=== PATIENT | male | born 1950 | race Caucasian/White ===

== ENCOUNTER 2018-08-15 02:08 | Inpatient (IN) | payer MEDICARE ==
[~2018-08-15] VITALS: Ht 182.9 cm; Wt 44.9 kg
[2018-08-15] VITALS (21 sets, daily range): BP systolic 112–164; BP diastolic 69–99; PULSE 96–116; RESP 17–28
[2018-08-15] MEDS ORDERED: SODIUM CHLORIDE 0.9% 1L BAG IV* STA (02:18)
[2018-08-15] MEDS ORDERED: HYDROmorphONE 0.5 MG/0.5 ML SYG IV STA ×2 (02:42→08:21)
[2018-08-15] MEDS ORDERED: VANCOMYCIN 1 GM (PMX) 250 ML IVPB ONE (03:00)
[2018-08-15] MEDS ORDERED: PIPER-TAZO 3.375 GM IV (PMX) 100 ML IVPB ONE (03:00)
[2018-08-15] MEDS ORDERED: ONDANSETRON 4 MG INJ IV STA ×2 (04:55→08:21)
[2018-08-15] MEDS ORDERED: ONDANSETRON 4 MG INJ ONE (04:56)
[2018-08-15] MEDS ORDERED: CHLO473M4 MM (06:38)
[2018-08-15] MEDS ORDERED: AMIO200T4 GTB (06:38)
[2018-08-15] MEDS ORDERED: LACTINEX GTB (06:39)
[2018-08-15] MEDS ORDERED: ACET325S GTB (06:40)
[2018-08-15] MEDS ORDERED: DOCU50LI23 GTB (06:55)
[2018-08-15] MEDS ORDERED: ESCI10TA GTB (06:55)
[2018-08-15] MEDS ORDERED: HYDR-3670 GTB (06:57)
[2018-08-15] MEDS ORDERED: LACT20SO2 PO (06:58)
[2018-08-15] MEDS ORDERED: IPRA3AMP29 INHALATION (06:58)
[2018-08-15] MEDS ORDERED: ZOLP5TAB7 GTB (06:59)
[2018-08-15] MEDS ORDERED: ONDA4TAB13 PO (06:59)
[2018-08-15] MEDS ORDERED: BALS60OI TOP (07:01)
[2018-08-15] MEDS ORDERED: BUDE1AMP INHALATION (07:02)
[2018-08-15] MEDS ORDERED: PANT40TA3 GTB (07:03)
[2018-08-15] MEDS ORDERED: PROT946L GTB (07:03)
[2018-08-15] MEDS ORDERED: MAG355OR14 GTB (07:04)
[2018-08-15] MEDS ORDERED: LIDO700A29 TP (07:18)
[2018-08-15] MEDS ORDERED: DOCUSATE SODIUM 10 MG/ML (10ML CUP) GTB PRN (08:00)
[2018-08-15] MEDS ORDERED: LACTULOSE 30ML CUP PO SCH (08:00)
[2018-08-15] MEDS ORDERED: ACETAMINOPHEN 650MG/20.3ML CUP GTB PRN (08:00)
[2018-08-15] MEDS ORDERED: AL HYDROX/MG HYDROX/SIMETH 30 ML CUP GTB PRN (08:00)
[2018-08-15] MEDS ORDERED: ONDANSETRON 4 MG TAB PO PRN (08:00)
[2018-08-15] MEDS ORDERED: PANTOPRAZOLE (EC) 40 MG TAB PO SCH (09:00)
--- NOTE | 2018-08-15 09:18 | HP ---
DATE OF ADMISSION: 08/15/2018 CHIEF COMPLAINT: Shortness of breath x1 day and neck and back pain. HISTORY OF PRESENT ILLNESS: This is a 68-year-old male with a past medical history of ventilatory de pendent respiratory failure, history of dysphagia, history of chronic neck pain, back pain, history o f arrhythmia, history of coronary artery disease, history of depression, history of gastroesophageal reflux disease, who presents to [facility] from a snf facility due to s hortness of breath and worsening neck pain. The patient states that he was recently at [facility] and was transferred to a skilled nurse facility, but he developed shortness of breath . The patient also stated that his pain has been getting worse in his neck. As a result, he was bro ught into the emergency room. Upon arrival, the patient had a chest x-ray, which showed findings of infiltrate of right lower lobe. The patient is also started on sepsis protocol, given IV fluids, IV antibiotics. Cultures were drawn. The patient was also given pain medication, IV Dilaudid. Upon my evaluation of the patient at this time, the patient states that he has ongoing neck pain that has been chronic, the patient states that he had recent surgery. The patient states he takes Dilaud id for pain control. He denies any hemoptysis, hematemesis or hematochezia. PAST MEDICAL HISTORY: As stated above, history of ventilatory dependent respiratory failure, history of dysphagia, history of coronary artery disease, history of arrhythmia, history of chronic pain syn drome due to gastroesophageal reflux disease, depression. PAST SURGICAL HISTORY: Status post trach, status post percutaneous endoscopic gastrostomy, status po st back surgery. FAMILY HISTORY: No family history of kidney disease. SOCIAL HISTORY: Lives at snf facility. MEDICATIONS: Medications have been reviewed and reconciled. ALLERGIES: PLEASE SEE LIST. REVIEW OF SYSTEMS: A 14-point review of systems was conducted. Pertinent positives stated in HPI, o therwise negative. PHYSICAL EXAMINATION: VITAL SIGNS: Blood pressure 132/71, respirations 24, pulse 118, temperature 98.4. HEENT: Head is normocephalic. NECK: Supple. Positive trach. HEART: Tachycardic. LUNGS: Show diminished breath sounds at the base. ABDOMEN: Soft, nontender to palpation without rebound or guarding. EXTREMITIES: Negative for clubbing, cyanosis, no edema. DERMATOLOGIC: No rashes. MUSCULOSKELETAL: No joint effusion. Positive decubitus wound noted. The patient has noted tenderne ss to palpation along the thoracic and cervical spine. NEUROLOGIC: No obvious focal deficits. LABORATORY DATA: Reviewed. ASSESSMENT AND PLAN: This is a 68-year-old male who presents with: 1. Sepsis secondary to healthcare-associated pneumonia. The patient's chest x-ray noted a positive infiltrate. The patient has elevated white count. Plan at this point is to check blood cultures, ch emerson lactic acid level and procalcitonin level. Continue the patient on broad spectrum antibiotics. We will place infectious disease consult for evaluation. 2. Neck pain, back pain. Etiology may be secondary to musculoskeletal disease. Plan is to check x- rays of the thoracic, lumbar and cervical spines. We will continue pain control, consider ortho eval uation. 3. Ventilatory dependent respiratory failure. Vent settings have been reviewed. Continue to monito r, place pulmonary consult for evaluation and management. 4. Dysphagia status post percutaneous endoscopic gastrostomy. We will continue tube feeding. 5. Anemia. Continue to monitor hemoglobin and hematocrit levels. 6. Lactic acidosis secondary to sepsis, clinically improving. Continue to monitor. 7. Tachyarrhythmia. We will place a cardiology consult for evaluation. Continue amiodarone. 8. Gastroesophageal reflux disease. Continue proton pump inhibitor. 9. Hypertension. Continue current blood pressure regimen. 10. Depression. Continue Lexapro. 11. Constipation. Continue lactulose. 12. Decubitus wound. Continue wound care. Please note, I spent additional 30 minutes of [id number] time with the patient, discussing advanced directives and codes status. The patient is FULL CODE. Dictated By: ADAN BUSCH DO NR/GUSTAVO Conf#: [id number] DID#: [id number] CC: CHITRA LANDEROS DO;*EndCC*
--- NOTE | 2018-08-15 09:58 | CONS ---
Assessment/Plan Assessment/Plan Hospital Course (Demo Recall) 1. Acute on chronic respiratory failure status post tracheostomy vent dependent 2. Pneumonia 3. Sinus tachycardia history of paroxysmal atrial fibrillation 4. History of gastric outlet obstruction 5. Dysphagia status post tube feeding and placement 6. History of severe COPD 7. Anemia 8. History of duodenal ulcer on esophagitis Recommendations: Continue with amiodarone for now. Patient has remained in sinus rhythm so far Ventilator support will be managed as per pulmonary Antibiotic management as per internal medicine and possible consultants Electrolytes will be checked and adjusted as needed Echocardiogram will be checked to evaluate for LV function Trach care will be continue aggressive suctioning. DVT prophylaxis and GI prophylaxis as per internal medicine Continue with ICU care Thank you for his referral. We will continue to follow along with you STEPHAN GE MD [facility] Consultation Date/Type/Reason Admit Date/Time August 15, 2018 at 03:45 Date of Consultation: August 15, 2018 Type of Consult Cardiology Reason for Consultation Arrhythmia, tachycardia Requesting Provider: ADAN BUSCH DO Date/Time of Note DATE: 08/15/18 TIME: 09:49 Hx of Present Illness Interventional cardiology consultation note Chief complaint: Worsening respiratory failure, neck pain back pain Reason for consult: Arrhythmia, tachycardia History of present illness: Thank you for this referral. History was obtained partially from the patient. Most of this discussion with the physicians and staff extensive review of the old chart. Patient also known to me from previous admission to the [facility] a few months ago This is an unfortunate 68-year-old gentleman who is being admitted for worsening respiratory failure and ammonia. Patient has had a complicated course over the past 6 months. He course has been complicated since February 19 of the last year when he was admitted to outside facility at [place] for inability to eat and nausea vomiting. Patient has had a significant underlying emphysema and has had episode of proximal atrial fibrillation in the past. Patient had previously gone partial gastrectomy and placement of feeding jejunostomy. He has had complicated course including respiratory failure and mucous plugging. Patient has been trached and has been out of hospitals and care home. Over the past few days patient has been getting worsening shortness of breath and pneumonia. He just getting admitted to intensive care unit for his worsening respiratory failure and pneumonia. Patient has a history of atrial fibrillation especially when his respiratory failure gets worse. Currently remains in sinus rhythm sinus tachycardia mostly. Patient denies any chest pain or pressure to me other palpitation to me does complain of nausea vomiting does complain of shortness of breath and cough. Has been noted to have green phlegm. Allergies: NSAIDs Medications were reviewed as per medical reconciliation sheet Family history: No reported history of early coronary artery disease Social history: Patient has been a long-standing smoker. Has not smoked recently though Past medical history: History of gastric ulcer and ulcers obstruction and status post feeding jejunostomy placement as well as risks and Y construction and cholecystectomy. History of respiratory failure status post tracheostomy no history of proximal atrial fibrillation history of severe COPD questionable history of hypertrophic cardiomyopathy three-vessel erosive gastritis history of a hiatal hernia duodenal ulcer duodenal narrowing Review of system: Patient denies all others except for above-mentioned Past Medical History Home Meds Reported Medications Lidocaine (Lidoderm) 1 Each Adh..patch, 1 EACH TP DAILY PUT ON AT 0900 AND TAKE OFF AT 2100 08/15/18 Mag Hydrox/Al Hydrox/Simeth (Maalox Advanced Suspension) 355 Ml Oral.susp, 30 ML GTB Q6 PRN for GASTROINTESTINAL UPSET 08/15/18 Pantoprazole* (Protonix*) 40 Mg Tablet.dr, 40 MG GTB DAILY, TAB 08/15/18 Protein Supplement (Promod) 946 Ml Liquid, 30 ML GTB BID 08/15/18 Budesonide* (Pulmicort*) 1 Mg/2 Ml Ampul.neb, 1 MG INHALATION BID, #60 AMP 08/15/18 Balsam Dora/[place] Oil (Venelex Ointment) 60 Gm Oint..gm., 1 APPLIC TOP NEEDED, #1 TUB APPLY TO SACRUM TOPICALLY DAILY 08/15/18 Ondansetron Hcl* (Zofran*) 4 Mg Tab, 4 MG PO Q6H PRN for NAUSEA AND OR VOMITING, TAB 08/15/18 Zolpidem Tartrate* (Zolpidem Tartrate*) 5 Mg Tablet, 5 MG GTB QHS PRN for INSOMNIA, #30 TAB 08/15/18 Lactulose* (Lactulose*) 20 Gm/30 Ml Solution, 20 GM PO Q6H for CONSTIPATION, ML 08/15/18 Ipratropium-Albuterol (Ipratropium-Albuterol) 0.5-3 Mg/3 Ml Ampul.neb, 3 ML INHALATION Q2H PRN for WHEEZING AND SOB, #30 VIAL 08/15/18 Hydralazine Hcl* (Hydralazine Hcl*) 10 Mg Tablet, 10 MG GTB Q8 PRN for ELEVATED BLOOD PRESSURE, #90 TAB HOLD IF SBP IS <110 OR HR IS <60 08/15/18 Escitalopram Oxalate* (Lexapro*) 10 Mg Tablet, 10 MG GTB DAILY, #30 TAB 08/15/18 Docusate Sodium* (Docusate Sodium* Liq) 50 Mg/5 Ml Liquid, 100 MG GTB BID PRN for CONSTIPATION, ML 08/15/18 Acetaminophen* (Acetaminophen* Susp) 325 Mg/10.15 Ml Solution, 650 MG GTB Q6 PRN for MILD PAIN LEVEL 1-3, ML 08/15/18 Lactobacillus Acidophilus* (Lactinex*) 1 Tab Chew, 1 TAB GTB BID, TAB 08/15/18 Amiodarone Hcl* (Amiodarone Hcl*) 200 Mg Tablet, 200 MG GTB BID, #60 TAB HOLD FOR HR >60 08/15/18 Chlorhexidine Gluconate (Peridex) 473 Ml Mouthwash, 15 ML MM BID, BOTTLE 08/15/18 Medications Current Medications Acetaminophen (Tylenol Liquid) 650 mg Q6H PRN GTB MILD PAIN LEVEL 1-3; Start 08/15/18 at 08:00 Amiodarone HCl (Cordarone) 200 mg BID GTB ; Start 08/15/18 at 09:00 Budesonide (Pulmicort (Neb)) 1 mg BID NEB ; Start 08/15/18 at 09:00 Chlorhexidine Gluconate (Peridex) 15 ml BID MM ; Start 08/15/18 at 09:00 Docusate Sodium (Colace Liquid Cup) 100 mg BID PRN GTB CONSTIPATION; Start 08/15/18 at 08:00 Escitalopram Oxalate (Lexapro) 10 mg DAILY GTB ; Start 08/15/18 at 09:00 Hydralazine HCl (Apresoline) 10 mg Q8 PRN GTB ELEVATED BLOOD PRESSURE; Start 08/15/18 at 08:00; Status UNV Albuterol/ Ipratropium (Duoneb) 3 ml Q2H PRN NEB WHEEZING AND SOB; Start 08/15/18 at 08:00 Lactulose (Enulose) 20 gm Q6H PO ; Start 08/15/18 at 08:00 Lidocaine (Lidoderm) 1 patch DAILY TD ; Start 08/15/18 at 09:00 Al Hydrox/Mg Hydrox/Simethicone (Mag-Al Plus) 30 ml Q6H PRN GTB GASTROINTESTINAL UPSET; Start 08/15/18 at 08:00 Ondansetron HCl (Zofran Tab) 4 mg Q6H PRN PO NAUSEA AND/OR VOMITING; Start 08/15/18 at 08:00 Pantoprazole (Protonix Tab) 40 mg DAILY PO ; Start 08/15/18 at 09:00 Zolpidem Tartrate (Ambien) 5 mg QHS PRN GTB INSOMNIA; Start 08/15/18 at 08:00 Piperacillin Sod/ Tazobactam Sod 100 ml @ 200 mls/hr Q8 IVPB ; Start 08/15/18 at 14:00 Allergies: Coded Allergies: NSAIDS (Non-Steroidal Anti-Inflamma (Unverified Allergy, Unknown, 08/15/18) Social History Smoking Status: Never smoker Exam/Review of Systems Vital Signs Vitals Vital Signs Date Temp Pulse Resp B/P (MAP) Pulse Ox O2 O2 Flow FiO2 Time Delivery Rate 08/15/18 98.4 108 27 152/85 100 Mechanical 08:24 (107) Ventilator 08/15/18 50 07:35 Exam Exam General: Thin cachectic looking gentleman in respiratory distress HEENT: NC/AT. pupils are equal. round. NECK: This post tracheostomy no stridor. CV: Tachycardic. systolic murmur; no gallop or rubs. PULM: no wheezing mild diffuse rhonchi. GI: SOFT, NT, ND, no rebound or guarding status post tube feeding placement Extremity: No significant LE edema. no clubbing. neuro: awake and alert, responds appropriately Psych: Anxious but pleasant rectal: deferred : normal EKG was personally reviewed shows sinus tachycardia Chest x-ray done August 15, 2018 shows: Bilateral increased interstitial markings could represent interstitial edema or infiltrates.Small left-sided pleural effusion.Aortic atherosclerosis. Echocardiogram done on March 2018 showed: Hyperdynamic left ventricular systolic function. Normal left ventricular cavity size. Mild concentric left ventricular hypertrophy. Ejection fraction is visually estimated at 75 %. Normal appearance and function of the mitral valve with trace physiologic regurgitation. Normal appearance of the aortic valve. No significant aortic stenosis or insufficiency. Normal appearance of the tricuspid valve. Estimated peak PA systolic pressure 38 mmHg. There is trace tricuspid regurgitation. Normal IVC with respiratory collapse, however patient on ventilator. Labs Result Diagram: 08/15/1822808/15/18228 Results 24hrs Laboratory Tests Test 08/15/18 02:29 08/15/18 02:50 08/15/18 03:01 08/15/18 03:11 White Blood Count 23.1 #H Red Blood Count 3.72 L Hemoglobin 11.7 L Hematocrit 35.4 L Mean Corpuscular 95.2 Volume Mean Corpuscular 31.5 Hemoglobin Mean Corpuscular 33.1 Hemoglobin Concen t Red Cell 16.1 H Distribution Width Platelet Count 326 # Mean Platelet 10.3 Volume Immature 0.600 H Granulocytes % Neutrophils % 92.4 H Lymphocytes % 2.6 L Monocytes % 4.2 Eosinophils % 0.0 Basophils % 0.2 Nucleated Red 0.0 Blood Cells % Immature 0.150 H Granulocytes # Neutrophils # 21.4 H Lymphocytes # 0.6 L Monocytes # 1.0 H Eosinophils # 0.0 Basophils # 0.0 Nucleated Red 0.0 Blood Cells # Prothrombin Time 18.3 #H Prothrombin Time 1.4 Ratio INR International 1.51 Normalized Ratio Activated 65.8 H Partial Thrombopl ast Time Sodium Level 140 Potassium Level 4.0 Chloride Level 107 Carbon Dioxide 28 Level Anion Gap 5 Blood Urea 16 Nitrogen Creatinine 0.34 L Est Glomerular > 60 Filtrat Rate mL/min Glucose Level 123 POC Venous 2.0 Lactate Calcium Level 8.7 Total Bilirubin 0.6 Direct Bilirubin 0.00 Indirect 0.6 Bilirubin Aspartate Amino 28 Transf (AST/SGOT) Alanine 32 Aminotransferase (ALT/SGPT) Alkaline 128 H Phosphatase Troponin I < 0.012 Total Protein 8.4 H Albumin 3.0 L Globulin 5.40 H Albumin/Globulin 0.55 Ratio Blood Gas Blood arterial Specimen Source Arterial Blood 08/15/2018 3:30:0 Date Drawn 0 AM Arterial Blood pH 7.454 H (Temp corrected) Arterial Blood 39.7 pCO2 (Temp correct) Arterial Blood 88.2 pO2 (Temp corrected) Arterial Blood 27.2 H HCO3 Arterial Blood 3.1 H Base Excess Arterial Blood 96.7 Oxygen Saturation Giovanni Test ACCEPTAB Arterial Blood Right Radial Gas Puncture Site Arterial 0 Blood Carboxyhemo globin Arterial Blood 0.4 Methemoglobin Blood Gas A-a O2 223.6 H Differential Oxyhemoglobin 96.3 Percent Blood Gas 37.0 Temperature Blood Gas 12.0 Respiration Rate Blood Gas Actual 29 Respiration Rate Blood Gas VENT - AC Modality FiO2 50.0 Blood Gas Tidal 450.0 Volume Blood Gas Low 5.0 PEEP Setting Blood Gas 16.0 Inspiratory Pressure Blood Gas 15/5 IPAP/EPAP Ratio Blood Gas MG Notified Whom Blood Gas 08/15/2018 3:34:0 Notified Time 0 AM Urine Color YELLOW Urine Clarity CLOUDY A Urine pH 7.0 Urine Specific 1.019 Logan Urine Ketones NEGATIVE Urine Nitrite NEGATIVE Urine Bilirubin NEGATIVE Urine NEGATIVE Urobilinogen Urine Leukocyte NEGATIVE Esterase Urine Microscopic 1 RBC Urine Microscopic 0 WBC Urine Amorphous MANY A Crystals Urine Hemoglobin NEGATIVE Urine Glucose NEGATIVE Urine Total NEGATIVE Protein Bedside Urine pH 7.5 (LAB) Bedside Urine 1+ H Protein (LAB) Bedside Urine Negative Glucose (UA) Bedside Urine Negative Ketones (LAB) Bedside Urine Negative Blood Bedside Urine Negative Nitrite (LAB) Bedside Urine Negative Leukocyte Esteras e (L Test 08/15/18 04:26 08/15/18 06:44 Lactic Acid Level 2.3 *H 1.4 Medications Medications Current Medications Acetaminophen (Tylenol Liquid) 650 mg Q6H PRN GTB MILD PAIN LEVEL 1-3; Start 08/15/18 at 08:00 Amiodarone HCl (Cordarone) 200 mg BID GTB ; Start 08/15/18 at 09:00 Budesonide (Pulmicort (Neb)) 1 mg BID NEB ; Start 08/15/18 at 09:00 Chlorhexidine Gluconate (Peridex) 15 ml BID MM ; Start 08/15/18 at 09:00 Docusate Sodium (Colace Liquid Cup) 100 mg BID PRN GTB CONSTIPATION; Start 08/15/18 at 08:00 Escitalopram Oxalate (Lexapro) 10 mg DAILY GTB ; Start 08/15/18 at 09:00 Hydralazine HCl (Apresoline) 10 mg Q8 PRN GTB ELEVATED BLOOD PRESSURE; Start 08/15/18 at 08:00; Status UNV Albuterol/ Ipratropium (Duoneb) 3 ml Q2H PRN NEB WHEEZING AND SOB; Start 08/15/18 at 08:00 Lactulose (Enulose) 20 gm Q6H PO ; Start 08/15/18 at 08:00 Lidocaine (Lidoderm) 1 patch DAILY TD ; Start 08/15/18 at 09:00 Al Hydrox/Mg Hydrox/Simethicone (Mag-Al Plus) 30 ml Q6H PRN GTB GASTROINTESTINAL UPSET; Start 08/15/18 at 08:00 Ondansetron HCl (Zofran Tab) 4 mg Q6H PRN PO NAUSEA AND/OR VOMITING; Start 08/15/18 at 08:00 Pantoprazole (Protonix Tab) 40 mg DAILY PO ; Start 08/15/18 at 09:00 Zolpidem Tartrate (Ambien) 5 mg QHS PRN GTB INSOMNIA; Start 08/15/18 at 08:00 Piperacillin Sod/ Tazobactam Sod 100 ml @ 200 mls/hr Q8 IVPB ; Start 08/15/18 at 14:00 STEPHAN GE MD August 15, 2018 09:58
[2018-08-15] MEDS: HYDROmorphONE 0.5 MG/0.5 ML SYG IV PRN ×4 (10:45→23:27)
[2018-08-15] MEDS: DEXTROSE 5%-0.45% NACL 1,000 ML IV SCH (10:59)
[2018-08-15] MEDS: ESCITALOPRAM 10 MG TAB GTB SCH (11:03)
[2018-08-15] MEDS: AMIODARONE 200 MG TAB GTB SCH ×2 (11:03→21:01)
[2018-08-15] MEDS: LANSOPRAZOLE 30 MG CAP GTB SCH (11:03)
[2018-08-15] MEDS: CHLORHEXIDINE GLUCONATE 15 ML UD CUP MM SCH ×2 (11:03→21:01)
[2018-08-15] MEDS: LIDOCAINE 5% PATCH TD SCH (11:06)
[2018-08-15] MEDS: ONDANSETRON 4 MG INJ IV PRN ×2 (11:15→22:56)
[2018-08-15] MEDS: BUDESONIDE (NEB) 0.5MG/2ML AMP NEB SCH ×2 (12:34→20:36)
[2018-08-15] MEDS: LACTULOSE 30ML CUP GTB SCH ×2 (13:31→21:01)
[2018-08-15] MEDS: PIPER-TAZO 3.375 GM IV (PMX) 100 ML IVPB SCH ×2 (13:31→21:28)
--- NOTE | 2018-08-15 14:33 | CONS ---
DATE OF ADMISSION: 08/15/2018 DATE OF CONSULTATION: TYPE OF CONSULTATION: Pulmonary. REASON FOR CONSULTATION: Ventilator management. Thank you, Dr. Aguayo, for this consultation. HISTORY OF PRESENT ILLNESS: This is a 68-year-old gentleman, vent-dependent respiratory failure, his tory of coronary artery disease, depression, cachexia and chronic vent dependence, who was transferre d from retirement facility for increasing neck pain, nausea, vomiting and respiratory distress. Since arrival, he has had vomiting x2, appears tachypneic. PAST MEDICAL HISTORY: As above. MEDICATIONS: Per chart. ALLERGIES: NONE. SOCIAL HISTORY: Nonsmoker, no alcohol, no history of drug use. FAMILY HISTORY: Noncontributory. SYSTEMS REVIEW: A 12-point review of systems was negative other than that mentioned above. PHYSICAL EXAMINATION: GENERAL: Elderly cachectic gentleman, awake, alert, oriented on mechanical ventilation via tracheost carmenza. NECK: Supple. No JVD or lymphadenopathy. CARDIAC: S1, S2. No added sounds or murmurs. CHEST: Diminished air entry bilaterally. ABDOMEN: Soft, nontender. No guarding or rebound. EXTREMITIES: No clubbing, cyanosis or edema. NEUROLOGIC: Grossly intact. No focal deficits. LABORATORIES: White count 23.1, hemoglobin 11.7, platelets of 326. BUN 16, creatinine 0.34. Lactic acid initially 2.3, now 1.4. INR 1.51. ABG: pH 7.45, pCO2 of 39, pO2 of 88. DIAGNOSTIC DATA: Chest x-ray was reviewed, which showed small left pleural effusion, increased bilat eral infiltrates. IMPRESSION: 1. Worsening hypoxemic respiratory failure, possible aspiration pneumonitis. 2. Significant cachexia. 3. Vent dependent respiratory failure. 4. History of dysphagia with G-tube. PLAN: 1. Continue antibiotics. 2. Vent support. 3. Cardiac recommendations for rate control. 4. DVT and GI prophylaxis. Dictated By: KIMBERLY QUINN/GUSTAVO Conf#: [id number] DID#: [id number] CC: CHITRA LANDEROS DO;*EndCC*
--- NOTE | 2018-08-15 15:31 | CONS ---
DATE OF ADMISSION: 08/15/2018 DATE OF CONSULTATION: 08/15/2018 TYPE OF CONSULTATION: Infectious disease. REASON FOR CONSULTATION: Antibiotic management. HISTORY OF PRESENT ILLNESS: Kurt Freedman is a 68-year-old male who comes in with shortness of breath , neck and back pain. Past problems include: 1. Ventilator-dependent respiratory failure. 2. Status post tracheostomy. 3. History of dysphagia. 4. Status post gastrostomy tube. 5. Chronic pain of the neck, back. 6. History of arrhythmia. 7. Coronary artery disease. 8. Depression. 9. Gastroesophageal reflux disease. He [facility] [place] [facility] with shortness of breath and worseni ng pain. The patient states he was recently at an outside facility, transferred to a [facility], but developed shortness of breath. His pain has been getting worse and his neck, was brou ght to the emergency room and had a chest x-ray which showed infiltrate in the right lobe. He was st arted on sepsis protocol, given IV fluids and antibiotics. The patient had recent surgery I believe on his neck and he has status post back surgery. FAMILY HISTORY: Noncontributory. SOCIAL HISTORY: He lives in a [facility]. ALLERGIES: NONE TO PENICILLIN, SULFA OR FOODS. MEDICATIONS: Per chart. REVIEW OF SYSTEMS: Noncontributory. PHYSICAL EXAMINATION: GENERAL: The patient is a well-developed, well-nourished, chronically ill-appearing male who is awak e, responsive, in no acute distress. VITAL SIGNS: Stable. He is afebrile. SKIN: Without generalized rash. HEENT: He has a tracheostomy. NECK: Supple. LYMPH NODES: None palpable. CHEST: Decreased breath sounds at the bases. HEART: Without murmur or gallop. He is tachycardic. ABDOMEN: Soft, nontender without organosplenomegaly or masses. EXTREMITIES: Without cyanosis, clubbing or edema. RECTAL AND GENITAL: Deferred. NEUROLOGIC: No focal neurological abnormalities. IMPRESSION AND PLAN: The patient has sepsis secondary to healthcare-associated pneumonia. He has a possible infiltrate on x-ray. His white count is 23.1, H and H of 11.7 and 35.4, platelet count is 3 26,000 with 92% neutrophils. BUN and creatinine is 16/0.34. Lactic acid was up at 2.3. The patient was started on Zosyn. He was seen as noted by Dr. Aguayo and also by Dr. Alvarez in cardiac consult ation. History of gastric outlet obstruction, severe COPD, history of duodenal ulcer on the esophagu s and also esophageal ulcer. We will continue him on current therapy. I will dictate my findings to the above physicians. Dictated By: CORINNA CORTEZ MD, JD/GUSTAVO Conf#: [id number] DID#: [id number] CC: KIMBERLY OVALLE MD; CHITRA LANDEROS DO;*EndCC*
[2018-08-15] MEDS: ALBUTEROL/IPRATROPIUM (NEB) 3 ML AMP NEB PRN (20:36)
[2018-08-15] MEDS: BALSAM PERU/CASTOR OIL 60 GM TUBE TOP SCH (21:28)
[2018-08-16] VITALS (24 sets, daily range): BP systolic 104–164; BP diastolic 63–74; PULSE 80–102; RESP 18–27; Ht 182.9 cm; Wt 44.9 kg
--- NOTE | 2018-08-16 01:39 | ERD ---
ER Documentation Chief Complaint Chief Complaint [id number],from [facility],low O2 sat while on vent HPI The patient is a 68-year-old male, presenting to the ER because of [facility], complains of cough for 1 day, vomiting today, O2 saturation was 88 to 84% on ventilator according to EMS. He denies fever, chills, neck pain, chest pain, abdominal pain, vomiting, dysuria. Past medical history: Chronic respiratory failure on ventilator, dysphagia, hypertension, history of paroxysmal atrial fibrillation, COPD, anemia, sacral and pressure ulcer, chronic low back pain Past surgical history: Tracheostomy, G-tube, cholecystectomy ROS All systems reviewed and are negative except as per history of present illness. Medications Home Meds Reported Medications Lidocaine (Lidoderm) 1 Each Adh..patch, 1 EACH TP DAILY PUT ON AT 0900 AND TAKE OFF AT 2100 08/15/18 Mag Hydrox/Al Hydrox/Simeth (Maalox Advanced Suspension) 355 Ml Oral.susp, 30 ML GTB Q6 PRN for GASTROINTESTINAL UPSET 08/15/18 Pantoprazole* (Protonix*) 40 Mg Tablet.dr, 40 MG GTB DAILY, TAB 08/15/18 Protein Supplement (Promod) 946 Ml Liquid, 30 ML GTB BID 08/15/18 Budesonide* (Pulmicort*) 1 Mg/2 Ml Ampul.neb, 1 MG INHALATION BID, #60 AMP 08/15/18 Balsam Norco/[place] Oil (Venelex Ointment) 60 Gm Oint..gm., 1 APPLIC TOP NEEDED, #1 TUB APPLY TO SACRUM TOPICALLY DAILY 08/15/18 Ondansetron Hcl* (Zofran*) 4 Mg Tab, 4 MG PO Q6H PRN for NAUSEA AND OR VOMITING, TAB 08/15/18 Zolpidem Tartrate* (Zolpidem Tartrate*) 5 Mg Tablet, 5 MG GTB QHS PRN for INSOMNIA, #30 TAB 08/15/18 Lactulose* (Lactulose*) 20 Gm/30 Ml Solution, 20 GM PO Q6H for CONSTIPATION, ML 08/15/18 Ipratropium-Albuterol (Ipratropium-Albuterol) 0.5-3 Mg/3 Ml Ampul.neb, 3 ML INHALATION Q2H PRN for WHEEZING AND SOB, #30 VIAL 08/15/18 Hydralazine Hcl* (Hydralazine Hcl*) 10 Mg Tablet, 10 MG GTB Q8 PRN for ELEVATED BLOOD PRESSURE, #90 TAB HOLD IF SBP IS <110 OR HR IS <60 08/15/18 Escitalopram Oxalate* (Lexapro*) 10 Mg Tablet, 10 MG GTB DAILY, #30 TAB 08/15/18 Docusate Sodium* (Docusate Sodium* Liq) 50 Mg/5 Ml Liquid, 100 MG GTB BID PRN for CONSTIPATION, ML 08/15/18 Acetaminophen* (Acetaminophen* Susp) 325 Mg/10.15 Ml Solution, 650 MG GTB Q6 PRN for MILD PAIN LEVEL 1-3, ML 08/15/18 Lactobacillus Acidophilus* (Lactinex*) 1 Tab Chew, 1 TAB GTB BID, TAB 08/15/18 Amiodarone Hcl* (Amiodarone Hcl*) 200 Mg Tablet, 200 MG GTB BID, #60 TAB HOLD FOR HR >60 08/15/18 Chlorhexidine Gluconate (Peridex) 473 Ml Mouthwash, 15 ML MM BID, BOTTLE 08/15/18 Allergies Allergies: Coded Allergies: NSAIDS (Non-Steroidal Anti-Inflamma (Unverified Allergy, Unknown, 08/15/18) PMhx/Soc History of Surgery: Yes (TRACHEOSTOMY, PEG PLACEMENT) Anesthesia Reaction: No Hx Neurological Disorder: No Hx Respiratory Disorders: Yes (RESPIRATORY FAILURE, TRACHESOTOMY STATUS) Hx Cardiac Disorders: Yes (ARRYTHMIA) Hx Psychiatric Problems: Yes (DEPRESSION) Hx Miscellaneous Medical Probl: Yes (GERD) Hx Alcohol Use: No Hx Substance Use: No Hx Tobacco Use: No Smoking Status: Never smoker Physical Exam Vitals Vital Signs Date Temp Pulse Resp B/P (MAP) Pulse Ox O2 O2 Flow FiO2 Time Delivery Rate 08/15/18 119 30 152/90 98 Mechanical 03:00 (110) Ventilator 08/15/18 125 36 96 50 03:00 08/15/18 98.4 135 28 144/91 99 02:14 (108) Physical Exam Const: Mild acute distress. Head: Atraumatic. Eyes: Normal Conjunctiva. ENT: Normal External Ears, Nose and Mouth. Neck: Full range of motion. No meningismus. Resp: Tachypneic, bibasilar crackle Cardio: Regular tachycardic Abd: Soft, non distended, normal bowel sounds, non tender. Skin: No petechiae or rashes. Back: No midline or flank tenderness. Ext: Contracted Neur: Awake and alert. Limited exam due to his condition Psych: Unable to perform due to his condition. Result Diagram: 08/15/189 08/15/18228 Results 24 hrs Laboratory Tests Test 08/15/18 02:29 08/15/18 02:50 08/15/18 03:01 08/15/18 03:11 White Blood 23.1 10^3/ul Count Red Blood Count 3.72 10^6/ul Hemoglobin 11.7 g/dl Hematocrit 35.4 % Mean 95.2 fl Corpuscular Volume Mean 31.5 pg Corpuscular Hemoglobin Mean 33.1 g/dl Corpuscular Hemoglobin Conc ent Red Cell 16.1 % Distribution Width Platelet Count 326 10^3/UL Mean Platelet 10.3 fl Volume Immature 0.600 % Granulocytes % Neutrophils % 92.4 % Lymphocytes % 2.6 % Monocytes % 4.2 % Eosinophils % 0.0 % Basophils % 0.2 % Nucleated Red 0.0 /100WBC Blood Cells % Immature 0.150 10^3/ul Granulocytes # Neutrophils # 21.4 10^3/ul Lymphocytes # 0.6 10^3/ul Monocytes # 1.0 10^3/ul Eosinophils # 0.0 10^3/ul Basophils # 0.0 10^3/ul Nucleated Red 0.0 10^3/ul Blood Cells # Prothrombin 18.3 Sec Time Prothrombin 1.4 Time Ratio INR 1.51 International Normalized Rati o Activated 65.8 Sec Partial Thrombo plast Time Sodium Level 140 mmol/L Potassium Level 4.0 mmol/L Chloride Level 107 mmol/L Carbon Dioxide 28 mmol/L Level Anion Gap 5 Blood Urea 16 mg/dl Nitrogen Creatinine 0.34 mg/dl Est Glomerular > 60 mL/min Filtrat Rate mL/min Glucose Level 123 mg/dl POC Venous 2.0 mmol/L Lactate Calcium Level 8.7 mg/dl Total Bilirubin 0.6 mg/dl Direct 0.00 mg/dl Bilirubin Indirect 0.6 mg/dl Bilirubin Aspartate Amino 28 IU/L Transf (AST/SGO T) Alanine 32 IU/L Aminotransferas e (ALT/SGPT) Alkaline 128 IU/L Phosphatase Troponin I < 0.012 ng/ml Total Protein 8.4 g/dl Albumin 3.0 g/dl Globulin 5.40 g/dl Albumin/Globuli 0.55 n Ratio Blood Gas Blood arterial Specimen Source Arterial Blood 08/15/2018 3:30: Date Drawn 00 AM Arterial Blood 7.454 pH (Temp corrected ) Arterial Blood 39.7 mmhg pCO2 (Temp correct) Arterial Blood 88.2 mmHG pO2 (Temp corrected ) Arterial Blood 27.2 mmol/L HCO3 Arterial Blood 3.1 mmol/L Base Excess Arterial Blood 96.7 mmHG Oxygen Saturati on Giovanni Test ACCEPTAB Arterial Blood Right Radial Gas Puncture Site Arterial 0 % Blood Carboxyhe moglobin Arterial Blood 0.4 % Methemoglobin Blood Gas A-a 223.6 mmHg O2 Differential Oxyhemoglobin 96.3 % Percent Blood Gas 37.0 C Temperature Blood Gas 12.0 Respiration Rate Blood Gas 29 Actual Respiration Rat e Blood Gas VENT - AC Modality FiO2 50.0 % Blood Gas Tidal 450.0 mL Volume Blood Gas Low 5.0 cmH2O PEEP Setting Blood Gas 16.0 Inspiratory Pressure Blood Gas 15/5 IPAP/EPAP Ratio Blood Gas MG Notified Whom Blood Gas 08/15/2018 3:34: Notified Time 00 AM Urine Color YELLOW Urine Clarity CLOUDY Urine pH 7.0 Urine Specific 1.019 [place] Urine Ketones NEGATIVE mg/dL Urine Nitrite NEGATIVE mg/dL Urine Bilirubin NEGATIVE mg/dL Urine NEGATIVE mg/dL Urobilinogen Urine Leukocyte NEGATIVE Juan/ul Esterase Urine 1 /HPF Microscopic RBC Urine 0 /HPF Microscopic WBC Urine Amorphous MANY /HPF Crystals Urine NEGATIVE mg/dL Hemoglobin Urine Glucose NEGATIVE mg/dL Urine Total NEGATIVE mg/dl Protein Bedside Urine 7.5 pH (LAB) Bedside Urine 1+ Protein (LAB) Bedside Urine Negative Glucose (UA) Bedside Urine Negative Ketones (LAB) Bedside Urine Negative Blood Bedside Urine Negative Nitrite (LAB) Bedside Urine Negative Leukocyte Marisol ase (L Current Medications Medications Dose Sig/Aylin Start Time Status Last (Trade) Ordered Route PRN Stop Time Admin Dose Reason Admin Sodium 1,160 ml BOLUS OVER 2 08/15/18 DC 08/15/18 Chloride HOURS STAT 02:18 02:32 (NS) IV* 08/15/18 02:21 Piperacillin 100 ml @ ONCE ONCE 08/15/18 DC 08/15/18 Sod/ 200 mls/hr IVPB 03:00 02:38 Tazobactam 08/15/18 03:29 Sod Vancomycin 250 ml @ ONCE ONCE 08/15/18 DC 08/15/18 HCl 125 mls/hr IVPB 03:00 03:13 08/15/18 04:59 0.5 mg ONCE STAT 08/15/18 DC 08/15/18 Hydromorphone IV 02:42 03:04 HCl 08/15/18 02:43 (Dilaudid) Procedures/[place] [address] Radiology Main Line: [phone] DIAGNOSTIC IMAGING REPORT Patient: JESSICA DAVIS : 1950 Age: 68 Sex: M MR #: [id number] DOS: 08/15/18 0218 Ordering MD: SUZANNE VALDEZ MD Location: E/R Room/Bed: PROCEDURE: Chest. CLINICAL INDICATION: Chest pain. TECHNIQUE: Single frontal view of the chest was obtained. COMPARISON: 08/05/2018. FINDINGS: The patient is status post tracheostomy. The cardiac silhouette is magnified. The aortic arch is calcified. There are increased interstitial markings bilaterally. There is a small left-sided pleural effusion. There is no pneumothorax. IMPRESSION: Bilateral increased interstitial markings could represent interstitial edema or infiltrates. Small left-sided pleural effusion. Aortic atherosclerosis. .Jamir Zuniga MD, MD Date Time Electronically viewed and signed by .Jamir Zuniga MD, on 08/15/2018 03:08 .T/ CC: SUZANNE VALDEZ MD [phone] EKG: Read by emergency physician Rate/Rhythm: Sinus tachycardia 137 beats/min QRS, ST, T-waves: No ST elevation, nonspecific ST abnormality Impression: Abnormal EKG MEDICAL MAKING DECISION: The patient is a 68-year-old male, presenting with acute severe sepsis, acute bilateral pneumonia, acute left pleural effusion. He was treated with 30 mL normal saline per kilogram IV, vancomycin IV, Zosyn IV for acute bilateral pneumonia, Dilaudid 0.5 mg IV for his chronic low back pain with good response. The differential diagnoses considered include but are not limited to pneumonia, aspiration pneumonia, empyema, UTI, pyelonephritis MDM: Patient's infectious symptoms have not stabilized and the patient is at risk of rapid decompensation. The patient will be admitted for careful hydration, antibiotic therapy, and infectious source control. SEVERE SEPSIS CRITERIA: Infectious source: pna End organ damage indicated by: [Lactate > 2.0 mmol/L SEPSIS MANAGEMENT Time of recognition of severe sepsis: 3am. 3 HOUR BUNDLE Blood cultures x 2 before broad-spectrum antibiotics: [Yes] 30 ml/kg NS bolus [Completed] Initial lactate []2 Repeat lactate Pending SEPTIC SHOCK ASSESSMENT: [No] lactic acid > 4.0 [No] Persistent hypotension (SBP < 90 or 40 mmHg drop, MAP < 65) despite 30 mL/kg IV fluid bolus CRITICAL CARE Critical care time [35] minutes Emergent fluid management while maintaining close respiratory support. Provision of immediate and broad-spectrum antibiotic therapy. Simultaneous assessment for possible sources in order to direct targeted therapy. Consideration for invasive and chemical support to prevent cardiopulmonary colla pse. Critical care time is independent of procedures performed. Departure Diagnosis: Primary Impression: Severe sepsis Additional Impressions: PNA (pneumonia) Pleural effusion, left Anemia Condition: Stable Comments I discussed the findings with the patient. I discussed the patient with Dr Vasquez at 3:35a , who was made aware of the lab, the treatment, the patient condition. The patient is admitted to [facility] by Dr Vasquez's request Disclaimer: Inadvertent spelling and grammatical errors are likely due to EHR/dictation software use and do not reflect on the overall quality of patient care. Also, please note that the electronic time recorded on this note does not necessarily reflect the actual time of the patient encounter. SUZANNE VALDEZ MD August 16, 2018 01:39
[2018-08-16] MEDS: LACTULOSE 30ML CUP GTB SCH ×4 (02:02→21:32)
[2018-08-16] MEDS: DEXTROSE 5%-0.45% NACL 1,000 ML IV SCH (02:07)
[2018-08-16] MEDS: HYDROmorphONE 0.5 MG/0.5 ML SYG IV PRN ×3 (04:28→13:34)
[2018-08-16] MEDS: PIPER-TAZO 3.375 GM IV (PMX) 100 ML IVPB SCH ×3 (05:49→21:34)
--- NOTE | 2018-08-16 07:13 | RADRPT ---
Echocardiogram Report Patient Name: JESSICA DAVISPatient ID: [id number] : 1950 (68y 6m)Study Date: 08/15/2018 9:10:02 AM Gender: MAccession #: [id number] Tech: Trae De Anda RDCS Location: [facility] Ref.Physician: STEPHAN ALVAREZ Height(Cm): BSA: Weight(Kg): Quality: Technically Difficult StudyOrder Physician: STEPHAN ALVAREZ Account #: Procedures: Echocardiographic Report: Transthoracic echocardiogram with complete 2D, M-Mode, and doppler examination. Indications: Resp failure. Measurements: 2D/M Mode Doppler Measurement Value Normal Range Measurement Value Normal Range LVIDd 2D 3.0 [ 4.2 - 5.8 ] cm AV Peak Apolinar 1.2 [ 100.0 - 170.0 ] cm/sec LVIDs 2D 1.6 [ 2.5 - 4.0 ] cm AV Peak PG 5.0 [ 2.0 - 9.0 ] mmHg LVPWd 2D 0.9 [ 0.6 - 1.0 ] cm LVOT Peak Apolinar 0.9 [ 70.0 - 110.0 ] cm/sec IVSd 2D 0.9 [ 0.6 - 1.0 ] cm LVOT Peak PG 3.0 [ 2.0 - 6.0 ] mmHg IVS/LVPW 2D 1.0 ratio TR Peak Apolinar 2.6 [ 100.0 - 280.0 ] cm/sec AoR Diam 2D 2.4 [ 2.6 - 3.4 ] cm TR Peak PG 26.0 mmHg LA/Ao 2D 1 ratio RVSP 36.0 [ 10.0 - 36.0 ] mmHg LA Dimen 2D 3.0 [ 3.0 - 4.0 ] cm RA Pressure 10.0 mmHg Findings: Left Ventricle: Normal left ventricular systolic function. Normal left ventricular cavity size. Left ventricle not well visualized. Normal left ventricular wall thickness. Ejection fraction is visually estimated at 70 %. Abnormal Diastolic Function. Right Ventricle: Normal right ventricular size. Normal right ventricular systolic function. Left Atrium: The left atrium is normal in size. Right Atrium: The right atrium is normal in size. Mitral Valve: Normal appearance and function of the mitral valve with trace physiologic regurgitation. Mitral valve is not well visualized. Aortic Valve: Normal appearance of the aortic valve. No significant aortic stenosis or insufficiency. Aortic valve not well visualized. Tricuspid Valve: Normal appearance of the tricuspid valve. Tricuspid valve not well visualized. The estimated Peak RVSP is 36 mmHg. There is trace tricuspid regurgitation. Pulmonic Valve: Pulmonic valve not well visualized. Pericardium: Normal pericardium with no significant pericardial effusion. Aorta: Normal aortic root. IVC: Normal size and normal respiratory collapse consistent with normal right atrial pressure. Conclusions: Normal left ventricular systolic function. Normal left ventricular cavity size. Left ventricle not well visualized. Normal left ventricular wall thickness. Ejection fraction is visually estimated at 70 %. Abnormal Diastolic Function. Normal appearance and function of the mitral valve with trace physiologic regurgitation. Mitral valve is not well visualized. Normal appearance of the aortic valve. No significant aortic stenosis or insufficiency. Aortic valve not well visualized. Normal appearance of the tricuspid valve. Tricuspid valve not well visualized. The estimated Peak RVSP is 36 mmHg. There is trace tricuspid regurgitation. Electronically Signed By: Stephan Alvarez 2018-08-16 07:13:29 PDT
[2018-08-16] MEDS ORDERED: POTASSIUM CHLORIDE 20 MEQ POWDER FOR ORAL SOLN GTB ONE (07:30)
--- NOTE | 2018-08-16 08:11 | CONS ---
Consult Date/Type/Reason Admit Date/Time August 15, 2018 at 03:45 Initial Consult Date 08/15/18 Type of Consultation: CV Requesting Provider: ADAN BUSCH DO Date/Time of Note DATE: 08/16/18 TIME: 08:07 Subjective Interventional cardiology follow-up progress note Subjective: Discussed with the staff and telemetry was reviewed. Patient remains in normal sinus rhythm. No episode of atrial fibrillation overnight reported. Heart rate has significantly improved as well Patient appears to have pain in less of her distress and is out of ICU on telemetry now. He is assisted with tracheostomy on the vent He denies any left-sided chest pain or pressure to me denies any palpitation to me Objective: General: Thin cachectic looking gentleman status post tracheostomy HEENT: NC/AT. pupils are equal. round. NECK: Status post tracheostomy. no stridor. CV: Regular rate and rhythm. systolic murmur; no gallop or rubs. PULM: no wheezing mild diffuse rhonchi. GI: SOFT, NT, ND, no rebound or guarding status post tube feeding placement Extremity: No significant LE edema. no clubbing. neuro: awake and alert, responds appropriately Psych: Anxious but pleasant rectal: deferred : normal EKG was personally reviewed shows sinus tachycardia Chest x-ray done August 15, 2018 shows: Bilateral increased interstitial markings could represent interstitial edema or infiltrates.Small left-sided pleural effusion.Aortic atherosclerosis. Echocardiogram done on March 2018 showed: Hyperdynamic left ventricular systolic function. Normal left ventricular cavity size. Mild concentric left ventricular hypertrophy. Ejection fraction is visually estimated at 75 %. Normal appearance and function of the mitral valve with trace physiologic regurgitation. Normal appearance of the aortic valve. No significant aortic stenosis or insufficiency. Normal appearance of the tricuspid valve. Estimated peak PA systolic pressure 38 mmHg. There is trace tricuspid regurgitation. Normal IVC with respiratory collapse, however patient on ventilator. Echocardiogram done August 16, 2018 shows: Normal left ventricular systolic function. Normal left ventricular cavity size. Left ventricle not well visualized. Normal left ventricular wall thickness. Ejection fraction is visually estimated at 70 %. Abnormal Diastolic Function. Normal appearance and function of the mitral valve with trace physiologic regurgitation. Mitral valve is not well visualized. Normal appearance of the aortic valve. No significant aortic stenosis or insufficiency. Aortic valve not well visualized. Normal appearance of the tricuspid valve. Tricuspid valve not well visualized. The estimated Peak RVSP is 36 mmHg. There is trace tricuspid regurgitation. Objective Vitals Vital Signs Date Temp Pulse Resp B/P (MAP) Pulse Ox O2 O2 Flow FiO2 Time Delivery Rate 08/16/18 98.4 93 18 149/71 98 08:05 (97) 08/16/18 40 07:55 08/16/18 Mechanical 04:12 Ventilator Intake and Output 08/15/18 08/15/18 08/16/18 1515:00 23:00 07:00 IntakeIntake Total 420 ml 380 ml 370 ml OutputOutput Total 395 ml 235 ml 475 ml BalanceBalance 25 ml 145 ml -105 ml Results/Medications Result Diagram: 08/16/1825 08/16/1825 Results 24 hrs Laboratory Tests Test 08/16/18 05:25 08/16/18 07:00 White Blood Count 8.5 # Red Blood Count 2.93 #L Hemoglobin 9.2 #L Hematocrit 28.4 L Mean Corpuscular Volume 96.9 Mean Corpuscular Hemoglobin 31.4 Mean Corpuscular Hemoglobin Concent 32.4 Red Cell Distribution Width 16.5 H Platelet Count 229 # Mean Platelet Volume 10.6 H Immature Granulocytes % 0.600 H Neutrophils % Lymphocytes % Monocytes % Eosinophils % Basophils % Nucleated Red Blood Cells % 0.0 Immature Granulocytes # 0.050 H Neutrophils # Lymphocytes # Monocytes # Eosinophils # Basophils # Nucleated Red Blood Cells # Sodium Level 145 H Potassium Level 2.7 *L Chloride Level 113 H Carbon Dioxide Level 31 Anion Gap 1 L Blood Urea Nitrogen 16 Creatinine 0.38 L Est Glomerular Filtrat Rate mL/min > 60 Glucose Level 121 Calcium Level 8.6 Phosphorus Level 1.9 L Magnesium Level 1.7 Blood Gas Specimen Source Blood arterial Arterial Blood Date Drawn 08/16/2018 7:30:15 AM Arterial Blood pH (Temp corrected) 7.478 H Arterial Blood pCO2 (Temp correct) 39.6 Arterial Blood pO2 (Temp corrected) 91.0 Arterial Blood HCO3 28.7 H Arterial Blood Base Excess 4.8 H Arterial Blood Oxygen Saturation 97.1 Giovanni Test ACCEPTAB Arterial Blood Gas Puncture Site Right Radial Arterial Blood Carboxyhemoglobin 0.3 Arterial Blood Methemoglobin 0.3 Blood Gas A-a O2 Differential 148.7 H Oxyhemoglobin Percent 96.5 Blood Gas Temperature 37.0 Blood Gas Respiration Rate 16.0 Blood Gas Actual Respiration Rate 22 Blood Gas Modality VENT - AC FiO2 40.0 Blood Gas Tidal Volume 500.0 Blood Gas Low PEEP Setting 5.0 Blood Gas Notified Whom TM Blood Gas Notified Time 08/16/2018 7:41:52 AM Home Meds Reported Medications Lidocaine (Lidoderm) 1 Each Adh..patch, 1 EACH TP DAILY PUT ON AT 0900 AND TAKE OFF AT 2100 08/15/18 Mag Hydrox/Al Hydrox/Simeth (Maalox Advanced Suspension) 355 Ml Oral.susp, 30 ML GTB Q6 PRN for GASTROINTESTINAL UPSET 08/15/18 Pantoprazole* (Protonix*) 40 Mg Tablet.dr, 40 MG GTB DAILY, TAB 08/15/18 Protein Supplement (Promod) 946 Ml Liquid, 30 ML GTB BID 08/15/18 Budesonide* (Pulmicort*) 1 Mg/2 Ml Ampul.neb, 1 MG INHALATION BID, #60 AMP 08/15/18 Balsam Qamar/Brandon Oil (Venelex Ointment) 60 Gm Oint..gm., 1 APPLIC TOP NEEDED, #1 TUB APPLY TO SACRUM TOPICALLY DAILY 08/15/18 Ondansetron Hcl* (Zofran*) 4 Mg Tab, 4 MG PO Q6H PRN for NAUSEA AND OR VOMITING, TAB 08/15/18 Zolpidem Tartrate* (Zolpidem Tartrate*) 5 Mg Tablet, 5 MG GTB QHS PRN for INSOMNIA, #30 TAB 08/15/18 Lactulose* (Lactulose*) 20 Gm/30 Ml Solution, 20 GM PO Q6H for CONSTIPATION, ML 08/15/18 Ipratropium-Albuterol (Ipratropium-Albuterol) 0.5-3 Mg/3 Ml Ampul.neb, 3 ML INHALATION Q2H PRN for WHEEZING AND SOB, #30 VIAL 08/15/18 Hydralazine Hcl* (Hydralazine Hcl*) 10 Mg Tablet, 10 MG GTB Q8 PRN for ELEVATED BLOOD PRESSURE, #90 TAB HOLD IF SBP IS <110 OR HR IS <60 08/15/18 Escitalopram Oxalate* (Lexapro*) 10 Mg Tablet, 10 MG GTB DAILY, #30 TAB 08/15/18 Docusate Sodium* (Docusate Sodium* Liq) 50 Mg/5 Ml Liquid, 100 MG GTB BID PRN for CONSTIPATION, ML 08/15/18 Acetaminophen* (Acetaminophen* Susp) 325 Mg/10.15 Ml Solution, 650 MG GTB Q6 PRN for MILD PAIN LEVEL 1-3, ML 08/15/18 Lactobacillus Acidophilus* (Lactinex*) 1 Tab Chew, 1 TAB GTB BID, TAB 08/15/18 Amiodarone Hcl* (Amiodarone Hcl*) 200 Mg Tablet, 200 MG GTB BID, #60 TAB HOLD FOR HR >60 08/15/18 Chlorhexidine Gluconate (Peridex) 473 Ml Mouthwash, 15 ML MM BID, BOTTLE 08/15/18 Medications Current Medications Acetaminophen (Tylenol Liquid) 650 mg Q6H PRN GTB MILD PAIN LEVEL 1-3; Start 08/15/18 at 08:00 Amiodarone HCl (Cordarone) 200 mg BID GTB Last administered on 08/15/18 21:01; Admin Dose 200 MG; Start 08/15/18 at 09:00 Budesonide (Pulmicort (Neb)) 1 mg BID NEB Last administered on 08/15/18 20:36; Admin Dose 1 MG; Start 08/15/18 at 09:00 Chlorhexidine Gluconate (Peridex) 15 ml BID MM Last administered on 08/15/18 21:01; Admin Dose 15 ML; Start 08/15/18 at 09:00 Docusate Sodium (Colace Liquid Cup) 100 mg BID PRN GTB CONSTIPATION; Start 08/15/18 at 08:00 Escitalopram Oxalate (Lexapro) 10 mg DAILY GTB Last administered on 08/15/18 11:03; Admin Dose 10 MG; Start 08/15/18 at 09:00 Hydralazine HCl (Apresoline) 10 mg Q8H PRN GTB ELEVATED BLOOD PRESSURE Last administered on 08/15/18 12:08; Admin Dose 10 MG; Start 08/15/18 at 08:00 Albuterol/ Ipratropium (Duoneb) 3 ml Q2H PRN NEB WHEEZING AND SOB Last administered on 08/15/18 20:36; Admin Dose 3 ML; Start 08/15/18 at 08:00 Lidocaine (Lidoderm) 1 patch DAILY TD Last administered on 5/30/19at 11:06; Admin Dose 1 PATCH; Start 08/15/18 at 09:00 Al Hydrox/Mg Hydrox/Simethicone (Mag-Al Plus) 30 ml Q6H PRN GTB GASTROINTESTI NAL UPSET; Start 08/15/18 at 08:00 Zolpidem Tartrate (Ambien) 5 mg QHS PRN GTB INSOMNIA; Start 08/15/18 at 08:00 Piperacillin Sod/ Tazobactam Sod 100 ml @ 200 mls/hr Q8 IVPB Last administered on 08/16/18at 05:49; Admin Dose 200 MLS/HR; Start 08/15/18 at 14:00 Hydromorphone HCl (Dilaudid) 0.5 mg Q4H PRN IV SEVERE PAIN LEVEL 7-10 Last administered on 08/16/18at 04:28; Admin Dose 0.5 MG; Start 08/15/18 at 10:30 Dextrose/Sodium Chloride 1,000 ml @ 40 mls/hr Q24H IV Last administered on 08/16/18at 02:07; Admin Dose 40 MLS/HR; Start 08/15/18 at 10:30 Ondansetron HCl (Zofran Inj) 4 mg Q6H PRN IV NAUSEA AND/OR VOMITING Last administered on 08/15/18at 22:56; Admin Dose 4 MG; Start 08/15/18 at 10:30 Lactulose (Enulose) 20 gm Q6H GTB Last administered on 08/16/18at 02:02; Admin Dose 20 GM; Start 08/15/18 at 14:00 Lansoprazole (Prevacid) 30 mg DAILY GTB Last administered on 08/15/18at 11:03; Admin Dose 30 MG; Start 08/15/18 at 10:30 Ascorbic Acid (Vitamin C) 250 mg DAILY GTB ; Start 08/16/18 at 09:00 Zinc Sulfate (Zinc Sulfate) 220 mg DAILY GTB ; Start 08/16/18 at 09:00 Folic Acid (Folic Acid) 1 mg DAILY GTB ; Start 08/16/18 at 09:00 Multivitamins (Multivitamin) 30 ml DAILY GTB ; Start 08/16/18 at 09:00 Assessment/Plan Hospital Course (Demo Recall) 1. Acute on chronic respiratory failure status post tracheostomy vent dependent 2. Pneumonia 3. Sinus tachycardia history of paroxysmal atrial fibrillation 4. History of gastric outlet obstruction 5. Dysphagia status post tube feeding and placement 6. History of severe COPD 7. Anemia 8. History of duodenal ulcer on esophagitis 9. Hypo K and hypo Mg Recommendations: Continue with amiodarone for now. Patient has remained in sinus rhythm so far Ventilator support will be managed as per pulmonary Antibiotic management as per internal medicine and infectious disease consultants Electrolytes will be adjusted as needed. Patient is receiving potassium now and I will give extra magnesium as well Echocardiogram shows ejection fraction of 70% Trach care will be continue aggressive suctioning. DVT prophylaxis and GI prophylaxis as per internal medicine Thank you for his referral. We will continue to follow along with you as needed STEPHAN GE MD [facility] STEPHAN GE MD August 16, 2018 08:11
[2018-08-16] MEDS: MULTIVITAMINS 30 ML CUP GTB SCH (08:58)
[2018-08-16] MEDS: CHLORHEXIDINE GLUCONATE 15 ML UD CUP MM SCH ×2 (08:59→21:31)
[2018-08-16] MEDS: LANSOPRAZOLE 30 MG CAP GTB SCH (08:59)
[2018-08-16] MEDS: AMIODARONE 200 MG TAB GTB SCH ×2 (08:59→21:31)
[2018-08-16] MEDS: ZINC SULFATE 220 MG CAP GTB SCH (08:59)
[2018-08-16] MEDS: ESCITALOPRAM 10 MG TAB GTB SCH (08:59)
[2018-08-16] MEDS: BALSAM PERU/CASTOR OIL 60 GM TUBE TOP SCH ×2 (09:00→21:32)
[2018-08-16] MEDS: LIDOCAINE 5% PATCH TD SCH (09:01)
[2018-08-16] MEDS: FOLIC ACID 1 MG TAB GTB SCH (09:01)
[2018-08-16] MEDS ORDERED: MAGNESIUM SULFATE 3 GM in DEXTROSE 5% 100 ML IVPB ONE (09:30)
[2018-08-16] MEDS: BUDESONIDE (NEB) 0.5MG/2ML AMP NEB SCH ×2 (09:35→20:32)
[2018-08-16] MEDS: ASCORBIC ACID 250 MG TAB GTB SCH (11:01)
--- NOTE | 2018-08-16 13:54 | PN ---
DATE: 08/16/2018 SUBJECTIVE: The patient was transferred from intensive care unit to telemetry. Overnight, the patie nt has been stable. The patient's pain is adequately controlled. No hemoptysis, hematemesis, hemato chezia. OBJECTIVE: VITAL SIGNS: Blood pressure is 149/71, pulse 81, respiration 18, pulse 93, temperature 98.4. HEENT: Head is normocephalic. NECK: Supple. HEART: Regular rate. LUNGS: Show diminished breath sounds at the base. ABDOMEN: Soft, nontender to palpation without rebound or guarding. EXTREMITIES: Negative for clubbing, cyanosis. Trace edema. DERMATOLOGIC: No rashes. MUSCULOSKELETAL: No joint effusion. NEUROLOGIC: No change in exam. MEDICATIONS: Have been reviewed. LABORATORY DATA: Have been reviewed. IMAGING STUDIES: Have been reviewed. Chest x-ray has been reviewed. ASSESSMENT AND PLAN: 1. Sepsis secondary to healthcare-associated pneumonia. The patient is clinically improving. Sonido nue current antibiotic regimen. Cultures have been reviewed. Follow up infectious disease for [facility] recommendations. 2. Ventilator dependent respiratory failure. Vent settings and ABG is reviewed. Continue to monito r. Follow up with pulmonary. 3. Dysphagia, status post PEG. Continue PEG tube feeding. 4. Anemia. Monitor hemoglobin and hematocrit levels. 5. Hypokalemia. We will replete with potassium chloride. 6. Hypernatremia. Plan to increase free water flushes at 200 mL per q.4 hours. Monitor closely. 7. History of degenerative joint disease with chronic neck and back pain. The patient's x-rays were reviewed. No evidence of fracture. We will continue pain regimen. Deescalate Dilaudid to 0.5 mg b .i.d. 8. Sinus arrhythmia, currently in sinus rhythm. Continue to monitor. Follow up with cardiology. 9. Hypertension. Continue current blood pressure regimen. 10. Depression. Continue Lexapro. 11. Constipation. Continue lactulose. 12. Decubitus wound. Continue wound care. 13. Gastrointestinal and deep venous thrombosis prophylaxis. 14. Encephalopathy. The patient's mental status is improving. Continue to monitor. 15. History of duodenal disease and peptic ulcer disease. Continue PPI. Dictated By: ADAN BUSCH DO NR/GUSTAVO Conf#: [id number] DID#: [id number] CC: KIMBERLY OVALLE MD; CHITRA LANDEROS DO;*End*
--- NOTE | 2018-08-16 14:35 | CONS ---
Assessment/Plan Assessment/Plan Hospital Course (Demo Recall) No acute changes overnight patient is awake denies pain, looks comfortable, no fevers Indwelling: Tracheostomy, PEG, [place] Laboratory data: WBC 8.5 platelets 229 bands 9 BUN 16 creatinine 0.38 Microbiology: All cultures preliminary negative Chest x-ray this morning revealed patchy multifocal right greater than left basilar alveolar infiltrates concerning for multifocal pneumonia, increased Antimicrobials: Zosyn, Vanco Physical examination: Chronically ill-appearing elderly man who is awake in no distress. Head atraumatic normocephalic sclera nonicteric. Neck is supple tracheostomy present. Chest rise symmetrical breath sounds diminished bases. Heart: S1-S2. Abdomen soft bowel sounds present. Extremities without cyanosis edema. Skin: Patient has multiple pressure sores Assessment: 1. Sepsis, present on admission 2. Healthcare associated pneumonia 3. Chronic respiratory failure and dysphagia 4. Resolving encephalopathy Plan: Patient remains stable, overall improving, continue present care and antibiotics Consultation Date/Type/Reason Admit Date/Time August 15, 2018 at 03:45 Initial Consult Date 08/15/18 Type of Consult id Requesting Provider: ADAN BUSCH DO Date/Time of Note DATE: 08/16/18 TIME: 14:35 Exam/Review of Systems Exam Vitals Vital Signs Date Temp Pulse Resp B/P (MAP) Pulse Ox O2 O2 Flow FiO2 Time Delivery Rate 08/16/18 85 25 99 40 13:48 08/16/18 97.8 128/63 11:24 (84) 08/16/18 Mechanical 04:12 Ventilator Intake and Output 08/15/18 08/15/18 08/16/18 1515:00 23:00 07:00 IntakeIntake Total 420 ml 380 ml 370 ml OutputOutput Total 395 ml 235 ml 475 ml BalanceBalance 25 ml 145 ml -105 ml Results Result Diagram: 08/16/18 0525 08/16/18 0525 Results 24hrs Laboratory Tests Test 08/16/18 05:25 08/16/18 07:00 White Blood Count 8.5 # Red Blood Count 2.93 #L Hemoglobin 9.2 #L Hematocrit 28.4 L Mean Corpuscular Volume 96.9 Mean Corpuscular Hemoglobin 31.4 Mean Corpuscular Hemoglobin Concent 32.4 Red Cell Distribution Width 16.5 H Platelet Count 229 # Mean Platelet Volume 10.6 H Immature Granulocytes % 0.600 H Neutrophils % Segmented Neutrophils % (Manual) 77 Band Neutrophils % (Manual) 9 H Lymphocytes % Lymphocytes % (Manual) 9 L Monocytes % Monocytes % (Manual) 5 Eosinophils % Basophils % Nucleated Red Blood Cells % 0.0 Immature Granulocytes # 0.050 H Neutrophils # Neutrophils # (Manual) 6.6 Band Neutrophils # 0.7 H Lymphocytes (Manual) 0.7 L Lymphocytes # Monocytes # Monocytes # (Manual) 0.4 Eosinophils # Basophils # Nucleated Red Blood Cells # Platelet Estimate NORMAL Polychromasia 1+ Poikilocytosis 2+ Anisocytosis 1+ Macrocytosis 1+ Spherocytes 1+ Sodium Level 145 H Potassium Level 2.7 *L Chloride Level 113 H Carbon Dioxide Level 31 Anion Gap 1 L Blood Urea Nitrogen 16 Creatinine 0.38 L Est Glomerular Filtrat Rate mL/min > 60 Glucose Level 121 Calcium Level 8.6 Phosphorus Level 1.9 L Magnesium Level 1.7 Blood Gas Specimen Source Blood arterial Arterial Blood Date Drawn 08/16/2018 7:30:15 AM Arterial Blood pH (Temp corrected) 7.478 H Arterial Blood pCO2 (Temp correct) 39.6 Arterial Blood pO2 (Temp corrected) 91.0 Arterial Blood HCO3 28.7 H Arterial Blood Base Excess 4.8 H Arterial Blood Oxygen Saturation 97.1 Giovanni Test ACCEPTAB Arterial Blood Gas Puncture Site Right Radial Arterial Blood Carboxyhemoglobin 0.3 Arterial Blood Methemoglobin 0.3 Blood Gas A-a O2 Differential 148.7 H Oxyhemoglobin Percent 96.5 Blood Gas Temperature 37.0 Blood Gas Respiration Rate 16.0 Blood Gas Actual Respiration Rate 22 Blood Gas Modality VENT - AC FiO2 40.0 Blood Gas Tidal Volume 500.0 Blood Gas Low PEEP Setting 5.0 Blood Gas Notified Whom TM Blood Gas Notified Time 08/16/2018 7:41:52 AM Medications Medication Current Medications Acetaminophen (Tylenol Liquid) 650 mg Q6H PRN GTB MILD PAIN LEVEL 1-3; Start 08/15/18 at 08:00 Amiodarone HCl (Cordarone) 200 mg BID GTB Last administered on 08/16/18at 08:59; Admin Dose 200 MG; Start 08/15/18 at 09:00 Budesonide (Pulmicort (Neb)) 1 mg BID NEB Last administered on 08/16/18at 09:35; Admin Dose 1 MG; Start 08/15/18 at 09:00 Chlorhexidine Gluconate (Peridex) 15 ml BID MM Last administered on 08/16/18 08:59; Admin Dose 15 ML; Start 08/15/18 at 09:00 Docusate Sodium (Colace Liquid Cup) 100 mg BID PRN GTB CONSTIPATION; Start 08/15/18 at 08:00 Escitalopram Oxalate (Lexapro) 10 mg DAILY GTB Last administered on 08/16/18 08:59; Admin Dose 10 MG; Start 08/15/18 at 09:00 Hydralazine HCl (Apresoline) 10 mg Q8H PRN GTB ELEVATED BLOOD PRESSURE Last administered on 08/15/18 12:08; Admin Dose 10 MG; Start 08/15/18 at 08:00 Albuterol/ Ipratropium (Duoneb) 3 ml Q2H PRN NEB WHEEZING AND SOB Last administered on 08/15/18 20:36; Admin Dose 3 ML; Start 08/15/18 at 08:00 Lidocaine (Lidoderm) 1 patch DAILY TD Last administered on 08/16/18 09:01; Admin Dose 1 PATCH; Start 08/15/18 at 09:00 Al Hydrox/Mg Hydrox/Simethicone (Mag-Al Plus) 30 ml Q6H PRN GTB GAS TROINTESTINAL UPSET; Start 08/15/18 at 08:00 Zolpidem Tartrate (Ambien) 5 mg QHS PRN GTB INSOMNIA; Start 08/15/18 at 08:00 Piperacillin Sod/ Tazobactam Sod 100 ml @ 200 mls/hr Q8 IVPB Last administered on 08/16/18 13:02; Admin Dose 200 MLS/HR; Start 08/15/18 at 14:00 Ondansetron HCl (Zofran Inj) 4 mg Q6H PRN IV NAUSEA AND/OR VOMITING Last administered on 08/15/18 22:56; Admin Dose 4 MG; Start 08/15/18 at 10:30 Lactulose (Enulose) 20 gm Q6H GTB Last administered on 08/16/18 08:59; Admin D ose 20 GM; Start 08/15/18 at 14:00 Lansoprazole (Prevacid) 30 mg DAILY GTB Last administered on 08/16/18 08:59; Admin Dose 30 MG; Start 08/15/18 at 10:30 Ascorbic Acid (Vitamin C) 250 mg DAILY GTB ; Start 08/16/18 at 09:00 Zinc Sulfate (Zinc Sulfate) 220 mg DAILY GTB Last administered on 08/16/18at 08:59; Admin Dose 220 MG; Start 08/16/18 at 09:00 Folic Acid (Folic Acid) 1 mg DAILY GTB Last administered on 08/16/18at 09:01; Admin Dose 1 MG; Start 08/16/18 at 09:00 Multivitamins (Multivitamin) 30 ml DAILY GTB Last administered on 08/16/18at 08:58; Admin Dose 30 ML; Start 08/16/18 at 09:00 Hydromorphone HCl (Dilaudid) 0.5 mg Q12H PRN IV SEVERE PAIN LEVEL 7-10 Last administered on 08/16/18at 13:34; Admin Dose 0.5 MG; Start 08/16/18 at 10:00 JANIS KEMP NP August 16, 2018 14:35
[2018-08-16] MEDS ORDERED: VANCOMYCIN IV PER PHARMACY XX SCH (15:00)
[2018-08-16] MEDS: VANCOMYCIN 500 MG (PMX) 100 ML IVPB SCH (15:34)
--- NOTE | 2018-08-16 15:50 | CONS ---
Consult Date/Type/Reason Admit Date/Time August 15, 2018 at 03:45 Initial Consult Date 08/15/18 Type of Consult Pulmonary Requesting Provider: ADAN BUSCH DO Date/Time of Note DATE: 08/16/18 TIME: 15:50 Subjective Patient comfortable no respiratory distress. Objective Vital Signs Date Temp Pulse Resp B/P (MAP) Pulse Ox O2 O2 Flow FiO2 Time Delivery Rate 08/16/18 100.0 88 21 131/68 97 15:19 (89) 08/16/18 40 15:05 08/16/18 Mechanica 04:12 l Ventilato r Intake and Output 08/15/18 08/15/18 08/16/18 1515:00 23:00 07:00 IntakeIntake Total 420 ml 380 ml 370 ml OutputOutput Total 395 ml 235 ml 475 ml BalanceBalance 25 ml 145 ml -105 ml Exam PHYSICAL EXAMINATION: GENERAL: Elderly cachectic gentleman, awake, alert, oriented on mechanical ventilation via tracheostomy. NECK: Supple. No JVD or lymphadenopathy. CARDIAC: S1, S2. No added sounds or murmurs. CHEST: Diminished air entry bilaterally. ABDOMEN: Soft, nontender. No guarding or rebound. EXTREMITIES: No clubbing, cyanosis or edema. NEUROLOGIC: Grossly intact. No focal deficits. Vent Setting Ventilator Support Mode: AC Fraction of Inspired Oxygen pe: 40 Positive End Expiratory Pressu: 5.0 Results/Medications Result Diagram: 08/16/18 0525 08/16/18 1359 Results 24 hrs Laboratory Tests Test 08/16/18 05:25 08/16/18 07:00 08/16/18 13:59 White Blood Count 8.5 # Red Blood Count 2.93 #L Hemoglobin 9.2 #L Hematocrit 28.4 L Mean Corpuscular Volume 96.9 Mean Corpuscular Hemoglobin 31.4 Mean Corpuscular 32.4 Hemoglobin Concent Red Cell Distribution Width 16.5 H Platelet Count 229 # Mean Platelet Volume 10.6 H Immature Granulocytes % 0.600 H Neutrophils % Segmented Neutrophils 77 % (Manual) Band Neutrophils % (Manual) 9 H Lymphocytes % Lymphocytes % (Manual) 9 L Monocytes % Monocytes % (Manual) 5 Eosinophils % Basophils % Nucleated Red Blood Cells % 0.0 Immature Granulocytes # 0.050 H Neutrophils # Neutrophils # (Manual) 6.6 Band Neutrophils # 0.7 H Lymphocytes (Manual) 0.7 L Lymphocytes # Monocytes # Monocytes # (Manual) 0.4 Eosinophils # Basophils # Nucleated Red Blood Cells # Platelet Estimate NORMAL Polychromasia 1+ Poikilocytosis 2+ Anisocytosis 1+ Macrocytosis 1+ Spherocytes 1+ Sodium Level 145 H 144 Potassium Level 2.7 *L 3.4 L Chloride Level 113 H 112 H Carbon Dioxide Level 31 28 Anion Gap 1 L 4 L Blood Urea Nitrogen 16 12 Creatinine 0.38 L 0.35 L Est Glomerular Filtrat > 60 > 60 Rate mL/min Glucose Level 121 116 Calcium Level 8.6 8.1 L Phosphorus Level 1.9 L Magnesium Level 1.7 Blood Gas Specimen Source Blood arterial Arterial Blood Date Drawn 08/16/2018 7:30:15 AM Arterial Blood pH 7.478 H (Temp corrected) Arterial Blood pCO2 39.6 (Temp correct) Arterial Blood pO2 91.0 (Temp corrected) Arterial Blood HCO3 28.7 H Arterial Blood Base Excess 4.8 H Arterial Blood 97.1 Oxygen Saturation Giovanni Test ACCEPTAB Arterial Blood Gas Right Radial Puncture Site Arterial 0.3 Blood Carboxyhemoglobin Arterial Blood Methemoglobin 0.3 Blood Gas A-a O2 148.7 H Differential Oxyhemoglobin Percent 96.5 Blood Gas Temperature 37.0 Blood Gas Respiration Rate 16.0 Blood Gas Actual 22 Respiration Rate Blood Gas Modality VENT - AC FiO2 40.0 Blood Gas Tidal Volume 500.0 Blood Gas Low PEEP Setting 5.0 Blood Gas Notified Whom TM Blood Gas Notified Time 08/16/2018 7:41:52 AM Medications Current Medications Acetaminophen (Tylenol Liquid) 650 mg Q6H PRN GTB MILD PAIN LEVEL 1-3; Start 08/15/18 at 08:00 Amiodarone HCl (Cordarone) 200 mg BID GTB Last administered on 08/16/18at 08:59; Admin Dose 200 MG; Start 08/15/18 at 09:00 Budesonide (Pulmicort (Neb)) 1 mg BID NEB Last administered on 08/16/18at 09:35; Admin Dose 1 MG; Start 08/15/18 at 09:00 Chlorhexidine Gluconate (Peridex) 15 ml BID MM Last administered on 08/16/18at 08:59; Admin Dose 15 ML; Start 08/15/18 at 09:00 Docusate Sodium (Colace Liquid Cup) 100 mg BID PRN GTB CONSTIPATION; Start 08/15/18 at 08:00 Escitalopram Oxalate (Lexapro) 10 mg DAILY GTB Last administered on 08/16/18 08:59; Admin Dose 10 MG; Start 08/15/18 at 09:00 Hydralazine HCl (Apresoline) 10 mg Q8H PRN GTB ELEVATED BLOOD PRESSURE Last administered on 08/15/18 12:08; Admin Dose 10 MG; Start 08/15/18 at 08:00 Albuterol/ Ipratropium (Duoneb) 3 ml Q2H PRN NEB WHEEZING AND SOB Last administ ered on 08/15/18 20:36; Admin Dose 3 ML; Start 08/15/18 at 08:00 Lidocaine (Lidoderm) 1 patch DAILY TD Last administered on 08/16/18 09:01; Admin Dose 1 PATCH; Start 08/15/18 at 09:00 Al Hydrox/Mg Hydrox/Simethicone (Mag-Al Plus) 30 ml Q6H PRN GTB GASTROINTESTINAL UPSET; Start 08/15/18 at 08:00 Zolpidem Tartrate (Ambien) 5 mg QHS PRN GTB INSOMNIA; Start 08/15/18 at 08:00 Piperacillin Sod/ Tazobactam Sod 100 ml @ 200 mls/hr Q8 IVPB Last administered on 08/16/18 13:02; Admin Dose 200 MLS/HR; Start 08/15/18 at 14:00 Ondansetron HCl (Zofran Inj) 4 mg Q6H PRN IV NAUSEA AND/OR VOMITING Last administered on 08/15/18 22:56; Admin Dose 4 MG; Start 08/15/18 at 10:30 Lactulose (Enulose) 20 gm Q6H GTB Last administered on 08/16/18 08:59; Admin Dose 20 GM; Start 08/15/18 at 14:00 Lansoprazole (Prevacid) 30 mg DAILY GTB Last administered on 08/16/18 08:59; Admin Dose 30 MG; Start 08/15/18 at 10:30 Ascorbic Acid (Vitamin C) 250 mg DAILY GTB ; Start 08/16/18 at 09:00 Zinc Sulfate (Zinc Sulfate) 220 mg DAILY GTB Last administered on 08/16/18 08:59; Admin Dose 220 MG; Start 08/16/18 at 09:00 Folic Acid (Folic Acid) 1 mg DAILY GTB Last administered on 08/16/18at 09:01; Admin Dose 1 MG; Start 08/16/18 at 09:00 Multivitamins (Multivitamin) 30 ml DAILY GTB Last administered on 08/16/18at 08:58; Admin Dose 30 ML; Start 08/16/18 at 09:00 Hydromorphone HCl (Dilaudid) 0.5 mg Q12H PRN IV SEVERE PAIN LEVEL 7-10 Last administered on 08/16/18at 13:34; Admin Dose 0.5 MG; Start 08/16/18 at 10:00 Vancomycin HCl (Vanco Iv Per Pharmacy) VANCOMYCIN PER PHARMACY PER PROTOCOL XX ; Start 08/16/18 at 15:00 Collagenase (Santyl) 1 applic DAILY TOP ; Start 08/17/18 at 09:00 Vancomycin HCl 100 ml @ 100 mls/hr Q12H IVPB Last administered on 08/16/18at 15:34; Admin Dose 100 MLS/HR; Start 08/16/18 at 16:00 Assessment/Plan Hospital Course (Demo Recall) IMPRESSION: 1. Worsening hypoxemic respiratory failure, possible aspiration pneumonitis. Improved today. 2. Significant cachexia. 3. Vent dependent respiratory failure. 4. History of dysphagia with G-tube. PLAN: 1. Continue antibiotics. 2. Vent support. 3. Cardiac recommendations for rate control. 4. DVT and GI prophylaxis. 5. Consider diuresis 6. Tube feeding as tolerated 7. Consider Javier evaluation KIMBERLY OVALLE MD, [facility] August 16, 2018 15:50
[2018-08-16] MEDS: ZOLPIDEM 5 MG TAB GTB PRN (18:04)
[2018-08-16] MEDS: ONDANSETRON 4 MG INJ IV PRN (23:06)
[2018-08-17] VITALS (21 sets, daily range): BP systolic 126–158; BP diastolic 59–87; PULSE 71–99; RESP 16–27
[2018-08-17] MEDS: HYDROmorphONE 0.5 MG/0.5 ML SYG IV PRN ×2 (01:35→13:27)
[2018-08-17] MEDS: LACTULOSE 30ML CUP GTB SCH ×4 (03:50→20:00)
[2018-08-17] MEDS: ZOLPIDEM 5 MG TAB GTB PRN ×2 (03:51→21:18)
[2018-08-17] MEDS: VANCOMYCIN 500 MG (PMX) 100 ML IVPB SCH (03:52)
[2018-08-17] MEDS: PIPER-TAZO 3.375 GM IV (PMX) 100 ML IVPB SCH ×3 (05:49→22:58)
[2018-08-17] MEDS: CHLORHEXIDINE GLUCONATE 15 ML UD CUP MM SCH ×2 (08:55→21:23)
[2018-08-17] MEDS: ESCITALOPRAM 10 MG TAB GTB SCH (08:56)
[2018-08-17] MEDS: FOLIC ACID 1 MG TAB GTB SCH (08:56)
[2018-08-17] MEDS: LANSOPRAZOLE 30 MG CAP GTB SCH (08:56)
[2018-08-17] MEDS: ZINC SULFATE 220 MG CAP GTB SCH (08:56)
[2018-08-17] MEDS: AMIODARONE 200 MG TAB GTB SCH ×2 (08:56→21:18)
[2018-08-17] MEDS: ASCORBIC ACID 250 MG TAB GTB SCH (08:56)
[2018-08-17] MEDS: MULTIVITAMINS 30 ML CUP GTB SCH (08:57)
[2018-08-17] MEDS: COLLAGENASE 5 GM (UD JAR) TOP SCH (09:05)
[2018-08-17] MEDS: LIDOCAINE 5% PATCH TD SCH (09:06)
[2018-08-17] MEDS: BALSAM PERU/CASTOR OIL 60 GM TUBE TOP SCH ×2 (09:06→21:23)
[2018-08-17] MEDS: BUDESONIDE (NEB) 0.5MG/2ML AMP NEB SCH ×2 (09:25→21:04)
[2018-08-17] MEDS ORDERED: POTASSIUM CHLORIDE 20 MEQ POWDER FOR ORAL SOLN GTB ONE (12:30)
--- NOTE | 2018-08-17 12:53 | PN ---
Date/Time of Note Date/Time of Note DATE: 08/17/18 TIME: 12:52 Assessment/Plan VTE Prophylaxis Risk score (from Ns)>0 risk: 8 SCD applied (from Ns): Yes Pharmacological prophylaxis: LMWH Lines/Catheters IV Catheter Type (from Nrs): Saline Lock Urinary Cath still in place: No Assessment/Plan Hospital Course 1. Sepsis secondary to healthcare-associated pneumonia. The patient is cli nically improving. Continue current antibiotic regimen. Cultures have been reviewed. Follow up infectious disease for further recommendations. 2. Ventilator dependent respiratory failure. Vent settings and ABG is reviewed. Continue to monitor. Follow up with pulmonary. 3. Dysphagia, status post PEG. Continue PEG tube feeding. 4. Anemia. Monitor hemoglobin and hematocrit levels. 5. Hypokalemia. We will replete with potassium chloride. 6. Hypernatremia. Plan to increase free water flushes at 200 mL per q.4 hours. Monitor closely. 7. History of degenerative joint disease with chronic neck and back pain. The patient's x-rays were reviewed. No evidence of fracture. We will continue pain regimen. Deescalate Dilaudid to 0.5 mg b.i.d. 8. Sinus arrhythmia, currently in sinus rhythm. Continue to monitor. Follow up with cardiology. 9. Hypertension. Continue current blood pressure regimen. 10. Depression. Continue Lexapro. 11. Constipation. Continue lactulose. 12. Decubitus wound. Continue wound care. 13. Gastrointestinal and deep venous thrombosis prophylaxis. 14. Encephalopathy. The patient's mental status is improving. Continue to monitor. 15. History of duodenal disease and peptic ulcer disease. Continue PPI. Result Diagram: 08/17/1831 08/17/18 0531 Results 24hrs Laboratory Tests Test 08/16/18 13:59 08/17/18 05:31 Sodium Level 144 142 Potassium Level 3.4 L 3.2 L Chloride Level 112 H 110 Carbon Dioxide Level 28 29 Anion Gap 4 L 3 L Blood Urea Nitrogen 12 12 Creatinine 0.35 L 0.29 L Est Glomerular Filtrat Rate mL/min > 60 > 60 Glucose Level 116 111 Calcium Level 8.1 L 7.9 L White Blood Count 6.8 Red Blood Count 2.80 L Hemoglobin 8.8 L Hematocrit 27.5 L Mean Corpuscular Volume 98.2 Mean Corpuscular Hemoglobin 31.4 Mean Corpuscular Hemoglobin Concent 32.0 Red Cell Distribution Width 16.1 H Platelet Count 205 Mean Platelet Volume 10.7 H Immature Granulocytes % 0.400 Neutrophils % 77.0 Lymphocytes % 16.5 Monocytes % 5.6 Eosinophils % 0.4 Basophils % 0.1 Nucleated Red Blood Cells % 0.0 Immature Granulocytes # 0.030 Neutrophils # 5.2 Lymphocytes # 1.1 Monocytes # 0.4 Eosinophils # 0.0 Basophils # 0.0 Nucleated Red Blood Cells # 0.0 Phosphorus Level 1.6 L Magnesium Level 1.7 Total Bilirubin 0.5 Direct Bilirubin 0.00 Indirect Bilirubin 0.5 Aspartate Amino Transf (AST/SGOT) 25 Alanine Aminotransferase (ALT/SGPT) 31 Alkaline Phosphatase 82 Total Protein 6.7 Albumin 2.3 L Globulin 4.40 H Albumin/Globulin Ratio 0.52 Subjective 24 Hr Interval Summary Free Text/Dictation c/o back pain vent settings reviewed denies shortness of breath or f/c d/w rn gen nad cv rrr pulm coarse bs abd soft, nd, nt +bs ext: no edema Exam/Review of Systems Exam Vitals Vital Signs Date Temp Pulse Resp B/P (MAP) Pulse Ox O2 O2 Flow FiO2 Time Delivery Rate 08/17/18 83 12:39 08/17/18 98.3 20 126/87 99 Mechanical 11:00 (100) Ventilator 08/17/18 40 11:00 Intake and Output 08/16/18 08/16/18 08/17/18 1515:00 23:00 07:00 IntakeIntake Total 206 ml 1280 ml 1340 ml OutputOutput Total 300 ml 400 ml BalanceBalance 206 ml 980 ml 940 ml Results Results 24hrs Laboratory Tests Test 08/16/18 13:59 08/17/18 05:31 Sodium Level 144 142 Potassium Level 3.4 L 3.2 L Chloride Level 112 H 110 Carbon Dioxide Level 28 29 Anion Gap 4 L 3 L Blood Urea Nitrogen 12 12 Creatinine 0.35 L 0.29 L Est Glomerular Filtrat Rate mL/min > 60 > 60 Glucose Level 116 111 Calcium Level 8.1 L 7.9 L White Blood Count 6.8 Red Blood Count 2.80 L Hemoglobin 8.8 L Hematocrit 27.5 L Mean Corpuscular Volume 98.2 Mean Corpuscular Hemoglobin 31.4 Mean Corpuscular Hemoglobin Concent 32.0 Red Cell Distribution Width 16.1 H Platelet Count 205 Mean Platelet Volume 10.7 H Immature Granulocytes % 0.400 Neutrophils % 77.0 Lymphocytes % 16.5 Monocytes % 5.6 Eosinophils % 0.4 Basophils % 0.1 Nucleated Red Blood Cells % 0.0 Immature Granulocytes # 0.030 Neutrophils # 5.2 Lymphocytes # 1.1 Monocytes # 0.4 Eosinophils # 0.0 Basophils # 0.0 Nucleated Red Blood Cells # 0.0 Phosphorus Level 1.6 L Magnesium Level 1.7 Total Bilirubin 0.5 Direct Bilirubin 0.00 Indirect Bilirubin 0.5 Aspartate Amino Transf (AST/SGOT) 25 Alanine Aminotransferase (ALT/SGPT) 31 Alkaline Phosphatase 82 Total Protein 6.7 Albumin 2.3 L Globulin 4.40 H Albumin/Globulin Ratio 0.52 Medications Medication Current Medications Acetaminophen (Tylenol Liquid) 650 mg Q6H PRN GTB MILD PAIN LEVEL 1-3 Last administered on 08/16/18 18:04; Admin Dose 650 MG; Start 08/15/18 at 08:00 Amiodarone HCl (Cordarone) 200 mg BID GTB Last administered on 08/17/18 08:56; Admin Dose 200 MG; Start 08/15/18 at 09:00 Budesonide (Pulmicort (Neb)) 1 mg BID NEB Last administered on 08/17/18 09:25; Admin Dose 1 MG; Start 08/15/18 at 09:00 Chlorhexidine Gluconate (Peridex) 15 ml BID MM Last administered on 08/17/18 08:55; Admin Dose 15 ML; Start 08/15/18 at 09:00 Docusate Sodium (Colace Liquid Cup) 100 mg BID PRN GTB CONSTIPATION; Start 08/15/18 at 08:00 Escitalopram Oxalate (Lexapro) 10 mg DAILY GTB Last administered on 08/17/18 08:56; Admin Dose 10 MG; Start 08/15/18 at 09:00 Hydralazine HCl (Apresoline) 10 mg Q8H PRN GTB ELEVATED BLOOD PRESSURE Last administered on 08/15/18 12:08; Admin Dose 10 MG; Start 08/15/18 at 08:00 Albuterol/ Ipratropium (Duoneb) 3 ml Q2H PRN NEB WHEEZING AND SOB Last administered on 08/15/18 20:36; Admin Dose 3 ML; Start 08/15/18 at 08:00 Lidocaine (Lidoderm) 1 patch DAILY TD Last administered on 08/17/18 09:06; Adm in Dose 1 PATCH; Start 08/15/18 at 09:00 Al Hydrox/Mg Hydrox/Simethicone (Mag-Al Plus) 30 ml Q6H PRN GTB GASTROINTESTINAL UPSET; Start 08/15/18 at 08:00 Zolpidem Tartrate (Ambien) 5 mg QHS PRN GTB INSOMNIA Last administered on 08/17/18 03:51; Admin Dose 5 MG; Start 08/15/18 at 08:00 Piperacillin Sod/ Tazobactam Sod 100 ml @ 200 mls/hr Q8 IVPB Last administered on 08/17/18 05:49; Admin Dose 200 MLS/HR; Start 08/15/18 at 14:00 Ondansetron HCl (Zofran Inj) 4 mg Q6H PRN IV NAUSEA AND/OR VOMITING Last administered on 08/16/18 23:06; Admin Dose 4 MG; Start 08/15/18 at 10:30 Lactulose (Enulose) 20 gm Q6H GTB Last administered on 08/17/18 08:55; Admin Dose 20 GM; Start 08/15/18 at 14:00 Lansoprazole (Prevacid) 30 mg DAILY GTB Last administered on 08/17/18 08:56; Admin Dose 30 MG; Start 08/15/18 at 10:30 Ascorbic Acid (Vitamin C) 250 mg DAILY GTB Last administered on 08/17/18 08:56; Admin Dose 250 MG; Start 08/16/18 at 09:00 Zinc Sulfate (Zinc Sulfate) 220 mg DAILY GTB Last administered on 08/17/18 08:56; Admin Dose 220 MG; Start 08/16/18 at 09:00 Folic Acid (Folic Acid) 1 mg DAILY GTB Last administered on 08/17/18 08:56; Admin Dose 1 MG; Start 08/16/18 at 09:00 Multivitamins (Multivitamin) 30 ml DAILY GTB Last administered on 08/17/18 08:57; Admin Dose 30 ML; Start 08/16/18 at 09:00 Hydromorphone HCl (Dilaudid) 0.5 mg Q12H PRN IV SEVERE PAIN LEVEL 7-10 Last administered on 08/17/18at 01:35; Admin Dose 0.5 MG; Start 08/16/18 at 10:00 Vancomycin HCl (Vanco Iv Per Pharmacy) VANCOMYCIN PER PHARMACY PER PROTOCOL XX ; Start 08/16/18 at 15:00 Collagenase (Santyl) 1 applic DAILY TOP Last administered on 08/17/18at 09:05; Admin Dose 1 APPLIC; Start 08/17/18 at 09:00 Vancomycin HCl 100 ml @ 100 mls/hr Q12H IVPB Last administered on 08/17/18at 03:52; Admin Dose 100 MLS/HR; Start 08/16/18 at 16:00 Miscellaneous Information (*Rx Drug Level Order Reminder*) VANCOMYCIN TROUGH 08/17 AT 1500 1500 ONCE XX ; Start 08/17/18 at 15:00; Stop 08/17/18 at 15:01 GRAHAM BARNETT MD Aug 17, 2018 12:53
--- NOTE | 2018-08-17 13:06 | CONS ---
Consultation Date/Type/Reason Admit Date/Time August 15, 2018 at 03:45 Initial Consult Date SUBJECTIVE: Patient is awake, alert, afebrile. VS: stable. T: 98.3 LABS: reviewed. WBC- 6.8 Indwelling: Tracheostomy, PEG, Hill Microbiology: All cultures preliminary negative CXR: 08/16/18 IMPRESSION: Patchy multifocal right greater than left basilar alveolar infiltrates concerning for multifocal pneumonia are increased. Minimal left pleural effusion unchanged. Antimicrobials: Zosyn, Vanco Physical examination: GEN: Chronically ill-appearing elderly man, who is awake in no distress. HENT: Head atraumatic normocephalic, sclera nonicteric. Neck is supple tracheostomy present. PULM: Chest rise symmetrical breath sounds diminished bases. Heart: S1-S2. Abdomen: soft, bowel sounds present. Extremities without cyanosis edema. Skin: Patient has multiple pressure sores Assessment: 1. Sepsis, present on admission 2. Healthcare associated pneumonia 3. Chronic respiratory failure and dysphagia 4. Resolving encephalopathy Plan: Patient remains stable. Continue current antibiotics. CXR from 08/16/18 noted. Pulm following. Requesting Provider: ADAN BUSCH DO Date/Time of Note DATE: 08/17/18 TIME: 13:01 Exam/Review of Systems Exam Vitals Vital Signs Date Temp Pulse Resp B/P (MAP) Pulse Ox O2 O2 Flow FiO2 Time Delivery Rate 08/17/18 83 12:39 08/17/18 98.3 20 126/87 99 Mechanical 11:00 (100) Ventilator 08/17/18 40 11:00 Intake and Output 08/16/18 08/16/18 08/17/18 1515:00 23:00 07:00 IntakeIntake Total 206 ml 1280 ml 1340 ml OutputOutput Total 300 ml 400 ml BalanceBalance 206 ml 980 ml 940 ml Results Result Diagram: 08/17/18 0531 08/17/18 0531 Results 24hrs Laboratory Tests Test 08/16/18 13:59 08/17/18 05:31 Sodium Level 144 142 Potassium Level 3.4 L 3.2 L Chloride Level 112 H 110 Carbon Dioxide Level 28 29 Anion Gap 4 L 3 L Blood Urea Nitrogen 12 12 Creatinine 0.35 L 0.29 L Est Glomerular Filtrat Rate mL/min > 60 > 60 Glucose Level 116 111 Calcium Level 8.1 L 7.9 L White Blood Count 6.8 Red Blood Count 2.80 L Hemoglobin 8.8 L Hematocrit 27.5 L Mean Corpuscular Volume 98.2 Mean Corpuscular Hemoglobin 31.4 Mean Corpuscular Hemoglobin Concent 32.0 Red Cell Distribution Width 16.1 H Platelet Count 205 Mean Platelet Volume 10.7 H Immature Granulocytes % 0.400 Neutrophils % 77.0 Lymphocytes % 16.5 Monocytes % 5.6 Eosinophils % 0.4 Basophils % 0.1 Nucleated Red Blood Cells % 0.0 Immature Granulocytes # 0.030 Neutrophils # 5.2 Lymphocytes # 1.1 Monocytes # 0.4 Eosinophils # 0.0 Basophils # 0.0 Nucleated Red Blood Cells # 0.0 Phosphorus Level 1.6 L Magnesium Level 1.7 Total Bilirubin 0.5 Direct Bilirubin 0.00 Indirect Bilirubin 0.5 Aspartate Amino Transf (AST/SGOT) 25 Alanine Aminotransferase (ALT/SGPT) 31 Alkaline Phosphatase 82 Total Protein 6.7 Albumin 2.3 L Globulin 4.40 H Albumin/Globulin Ratio 0.52 Medications Medication Current Medications Acetaminophen (Tylenol Liquid) 650 mg Q6H PRN GTB MILD PAIN LEVEL 1-3 Last administered on 08/16/18 18:04; Admin Dose 650 MG; Start 08/15/18 at 08:00 Amiodarone HCl (Cordarone) 200 mg BID GTB Last administered on 08/17/18 08:56; Admin Dose 200 MG; Start 08/15/18 at 09:00 Budesonide (Pulmicort (Neb)) 1 mg BID NEB Last administered on 08/17/18 09:25; Admin Dose 1 MG; Start 08/15/18 at 09:00 Chlorhexidine Gluconate (Peridex) 15 ml BID MM Last administered on 08/17/18 08:55; Admin Dose 15 ML; Start 08/15/18 at 09:00 Docusate Sodium (Colace Liquid Cup) 100 mg BID PRN GTB CONSTIPATION; Start 08/15/18 at 08:00 Escitalopram Oxalate (Lexapro) 10 mg DAILY GTB Last administered on 08/17/18 08:56; Admin Dose 10 MG; Start 08/15/18 at 09:00 Hydralazine HCl (Apresoline) 10 mg Q8H PRN GTB ELEVATED BLOOD PRESSURE Last administered on 08/15/18 12:08; Admin Dose 10 MG; Start 08/15/18 at 08:00 Albuterol/ Ipratropium (Duoneb) 3 ml Q2H PRN NEB WHEEZING AND SOB Last administered on 08/15/18 20:36; Admin Dose 3 ML; Start 08/15/18 at 08:00 Lidocaine (Lidoderm) 1 patch DAILY TD Last administered on 08/17/18 09:06; Admin Dose 1 PATCH; Start 08/15/18 at 09:00 Al Hydrox/Mg Hydrox/Simethicone (Mag-Al Plus) 30 ml Q6H PRN GTB GASTROINTESTINAL UPSET; Start 08/15/18 at 08:00 Zolpidem Tartrate (Ambien) 5 mg QHS PRN GTB INSOMNIA Last administered on 08/17/18 03:51; Admin Dose 5 MG; Start 08/15/18 at 08:00 Piperacillin Sod/ Tazobactam Sod 100 ml @ 200 mls/hr Q8 IVPB Last administered on 08/17/18 05:49; Admin Dose 200 MLS/HR; Start 08/15/18 at 14:00 Ondansetron HCl (Zofran Inj) 4 mg Q6H PRN IV NAUSEA AND/OR VOMITING Last administered on 08/16/18 23:06; Admin Dose 4 MG; Start 08/15/18 at 10:30 Lactulose (Enulose) 20 gm Q6H GTB Last administered on 08/17/18 08:55; Admin Dose 20 GM; Start 08/15/18 at 14:00 Lansoprazole (Prevacid) 30 mg DAILY GTB Last administered on 08/17/18 08:56; Admin Dose 30 MG; Start 08/15/18 at 10:30 Ascorbic Acid (Vitamin C) 250 mg DAILY GTB Last administered on 08/17/18 08:56; Admin Dose 250 MG; Start 08/16/18 at 09:00 Zinc Sulfate (Zinc Sulfate) 220 mg DAILY GTB Last administered on 08/17/18 08:56; Admin Dose 220 MG; Start 08/16/18 at 09:00 Folic Acid (Folic Acid) 1 mg DAILY GTB Last administered on 08/17/18 08:56; Admin Dose 1 MG; Start 08/16/18 at 09:00 Multivitamins (Multivitamin) 30 ml DAILY GTB Last administered on 08/17/18at 08:57; Admin Dose 30 ML; Start 08/16/18 at 09:00 Hydromorphone HCl (Dilaudid) 0.5 mg Q12H PRN IV SEVERE PAIN LEVEL 7-10 Last administered on 08/17/18at 01:35; Admin Dose 0.5 MG; Start 08/16/18 at 10:00 Vancomycin HCl (Vanco Iv Per Pharmacy) VANCOMYCIN PER PHARMACY PER PROTOCOL XX ; Start 08/16/18 at 15:00 Collagenase (Santyl) 1 applic DAILY TOP Last administered on 08/17/18at 09:05; Admin Dose 1 APPLIC; Start 08/17/18 at 09:00 Vancomycin HCl 100 ml @ 100 mls/hr Q12H IVPB Last administered on 08/17/18at 03:52; Admin Dose 100 MLS/HR; Start 08/16/18 at 16:00 Miscellaneous Information (*Rx Drug Level Order Reminder*) VANCOMYCIN TROUGH 08/17 AT 1500 1500 ONCE XX ; Start 08/17/18 at 15:00; Stop 08/17/18 at 15:01 NIMISHA DAWSON Aug 17, 2018 13:06
--- NOTE | 2018-08-17 15:26 | CONS ---
Consult Date/Type/Reason Admit Date/Time August 15, 2018 at 03:45 Initial Consult Date 08/15/18 Type of Consultation: Pulm Requesting Provider: ADAN BUSCH DO Date/Time of Note DATE: 08/17/18 TIME: 15:24 Subjective No events on the vent. Objective Vitals Vital Signs Date Temp Pulse Resp B/P (MAP) Pulse Ox O2 O2 Flow FiO2 Time Delivery Rate 08/17/18 84 24 100 40 13:15 08/17/18 98.3 126/87 Mechanical 11:00 (100) Ventilator Intake and Output 08/16/18 08/16/18 08/17/18 1515:00 23:00 07:00 IntakeIntake Total 206 ml 1280 ml 1340 ml OutputOutput Total 300 ml 400 ml BalanceBalance 206 ml 980 ml 940 ml Exam GENERAL: Elderly cachectic gentleman, awake, alert, oriented on mechanical ventilation via tracheostomy. NECK: Supple. No JVD or lymphadenopathy. CARDIAC: S1, S2. No added sounds or murmurs. CHEST: Diminished air entry bilaterally. ABDOMEN: Soft, nontender. No guarding or rebound. EXTREMITIES: No clubbing, cyanosis or edema. NEUROLOGIC: Grossly intact. No focal deficits. Results/Medications Result Diagram: 08/17/18 0531 08/17/18 0531 Results 24 hrs Laboratory Tests Test 08/17/18 05:31 White Blood Count 6.8 Red Blood Count 2.80 L Hemoglobin 8.8 L Hematocrit 27.5 L Mean Corpuscular Volume 98.2 Mean Corpuscular Hemoglobin 31.4 Mean Corpuscular Hemoglobin Concent 32.0 Red Cell Distribution Width 16.1 H Platelet Count 205 Mean Platelet Volume 10.7 H Immature Granulocytes % 0.400 Neutrophils % 77.0 Lymphocytes % 16.5 Monocytes % 5.6 Eosinophils % 0.4 Basophils % 0.1 Nucleated Red Blood Cells % 0.0 Immature Granulocytes # 0.030 Neutrophils # 5.2 Lymphocytes # 1.1 Monocytes # 0.4 Eosinophils # 0.0 Basophils # 0.0 Nucleated Red Blood Cells # 0.0 Sodium Level 142 Potassium Level 3.2 L Chloride Level 110 Carbon Dioxide Level 29 Anion Gap 3 L Blood Urea Nitrogen 12 Creatinine 0.29 L Est Glomerular Filtrat Rate mL/min > 60 Glucose Level 111 Calcium Level 7.9 L Phosphorus Level 1.6 L Magnesium Level 1.7 Total Bilirubin 0.5 Direct Bilirubin 0.00 Indirect Bilirubin 0.5 Aspartate Amino Transf (AST/SGOT) 25 Alanine Aminotransferase (ALT/SGPT) 31 Alkaline Phosphatase 82 Total Protein 6.7 Albumin 2.3 L Globulin 4.40 H Albumin/Globulin Ratio 0.52 Home Meds Reported Medications Lidocaine (Lidoderm) 1 Each Adh..patch, 1 EACH TP DAILY PUT ON AT 0900 AND TAKE OFF AT 2100 08/15/18 Mag Hydrox/Al Hydrox/Simeth (Maalox Advanced Suspension) 355 Ml Oral.susp, 30 ML GTB Q6 PRN for GASTROINTESTINAL UPSET 08/15/18 Pantoprazole* (Protonix*) 40 Mg Tablet.dr, 40 MG GTB DAILY, TAB 08/15/18 Protein Supplement (Promod) 946 Ml Liquid, 30 ML GTB BID 08/15/18 Budesonide* (Pulmicort*) 1 Mg/2 Ml Ampul.neb, 1 MG INHALATION BID, #60 AMP 08/15/18 Balsam Qamar/[place] Oil (Venelex Ointment) 60 Gm Oint..gm., 1 APPLIC TOP NEEDED, #1 TUB APPLY TO SACRUM TOPICALLY DAILY 08/15/18 Ondansetron Hcl* (Zofran*) 4 Mg Tab, 4 MG PO Q6H PRN for NAUSEA AND OR VOMITING, TAB 08/15/18 Zolpidem Tartrate* (Zolpidem Tartrate*) 5 Mg Tablet, 5 MG GTB QHS PRN for INSOMNIA, #30 TAB 08/15/18 Lactulose* (Lactulose*) 20 Gm/30 Ml Solution, 20 GM PO Q6H for CONSTIPATION, ML 08/15/18 Ipratropium-Albuterol (Ipratropium-Albuterol) 0.5-3 Mg/3 Ml Ampul.neb, 3 ML INHALATION Q2H PRN for WHEEZING AND SOB, #30 VIAL 08/15/18 Hydralazine Hcl* (Hydralazine Hcl*) 10 Mg Tablet, 10 MG GTB Q8 PRN for ELEVATED BLOOD PRESSURE, #90 TAB HOLD IF SBP IS <110 OR HR IS <60 08/15/18 Escitalopram Oxalate* (Lexapro*) 10 Mg Tablet, 10 MG GTB DAILY, #30 TAB 08/15/18 Docusate Sodium* (Docusate Sodium* Liq) 50 Mg/5 Ml Liquid, 100 MG GTB BID PRN for CONSTIPATION, ML 08/15/18 Acetaminophen* (Acetaminophen* Susp) 325 Mg/10.15 Ml Solution, 650 MG GTB Q6 PRN for MILD PAIN LEVEL 1-3, ML 08/15/18 Lactobacillus Acidophilus* (Lactinex*) 1 Tab Chew, 1 TAB GTB BID, TAB 08/15/18 Amiodarone Hcl* (Amiodarone Hcl*) 200 Mg Tablet, 200 MG GTB BID, #60 TAB HOLD FOR HR >60 08/15/18 Chlorhexidine Gluconate (Peridex) 473 Ml Mouthwash, 15 ML MM BID, BOTTLE 08/15/18 Medications Current Medications Acetaminophen (Tylenol Liquid) 650 mg Q6H PRN GTB MILD PAIN LEVEL 1-3 Last administered on 08/16/18 18:04; Admin Dose 650 MG; Start 08/15/18 at 08:00 Amiodarone HCl (Cordarone) 200 mg BID GTB Last administered on 08/17/18 08:56; Admin Dose 200 MG; Start 08/15/18 at 09:00 Budesonide (Pulmicort (Neb)) 1 mg BID NEB Last administered on 08/17/18 09:25; Admin Dose 1 MG; Start 08/15/18 at 09:00 Chlorhexidine Gluconate (Peridex) 15 ml BID MM Last administered on 08/17/18 08:55; Admin Dose 15 ML; Start 08/15/18 at 09:00 Docusate Sodium (Colace Liquid Cup) 100 mg BID PRN GTB CONSTIPATION; Start 08/15/18 at 08:00 Escitalopram Oxalate (Lexapro) 10 mg DAILY GTB Last administered on 08/17/18 08:56; Admin Dose 10 MG; Start 08/15/18 at 09:00 Hydralazine HCl (Apresoline) 10 mg Q8H PRN GTB ELEVATED BLOOD PRESSURE Last administered on 08/15/18at 12:08; Admin Dose 10 MG; Start 08/15/18 at 08:00 Albuterol/ Ipratropium (Duoneb) 3 ml Q2H PRN NEB WHEEZING AND SOB Last administered on 08/15/18at 20:36; Admin Dose 3 ML; Start 08/15/18 at 08:00 Lidocaine (Lidoderm) 1 patch DAILY TD Last administered on 08/17/18 09:06; Admin Dose 1 PATCH; Start 08/15/18 at 09:00 Al Hydrox/Mg Hydrox/Simethicone (Mag-Al Plus) 30 ml Q6H PRN GTB GASTROINTESTINAL UPSET; Start 08/15/18 at 08:00 Zolpidem Tartrate (Ambien) 5 mg QHS PRN GTB INSOMNIA Last administered on 08/17/18 03:51; Admin Dose 5 MG; Start 08/15/18 at 08:00 Piperacillin Sod/ Tazobactam Sod 100 ml @ 200 mls/hr Q8 IVPB Last administered on 08/17/18 13:27; Admin Dose 200 MLS/HR; Start 08/15/18 at 14:00 Ondansetron HCl (Zofran Inj) 4 mg Q6H PRN IV NAUSEA AND/OR VOMITING Last administered on 08/16/18 23:06; Admin Dose 4 MG; Start 08/15/18 at 10:30 Lactulose (Enulose) 20 gm Q6H GTB Last administered on 08/17/18 08:55; Admin Dose 20 GM; Start 08/15/18 at 14:00 Lansoprazole (Prevacid) 30 mg DAILY GTB Last administered on 08/17/18 08:56; Admin Dose 30 MG; Start 08/15/18 at 10:30 Ascorbic Acid (Vitamin C) 250 mg DAILY GTB Last administered on 08/17/18 08:56; Admin Dose 250 MG; Start 08/16/18 at 09:00 Zinc Sulfate (Zinc Sulfate) 220 mg DAILY GTB Last administered on 08/17/18 08:56; Admin Dose 220 MG; Start 08/16/18 at 09:00 Folic Acid (Folic Acid) 1 mg DAILY GTB Last administered on 08/17/18 08:56; A dmin Dose 1 MG; Start 08/16/18 at 09:00 Multivitamins (Multivitamin) 30 ml DAILY GTB Last administered on 08/17/18 08:57; Admin Dose 30 ML; Start 08/16/18 at 09:00 Hydromorphone HCl (Dilaudid) 0.5 mg Q12H PRN IV SEVERE PAIN LEVEL 7-10 Last administered on 08/17/18at 13:27; Admin Dose 0.5 MG; Start 08/16/18 at 10:00 Vancomycin HCl (Vanco Iv Per Pharmacy) VANCOMYCIN PER PHARMACY PER PROTOCOL XX ; Start 08/16/18 at 15:00 Collagenase (Santyl) 1 applic DAILY TOP Last administered on 08/17/18at 09:05; Admin Dose 1 APPLIC; Start 08/17/18 at 09:00 Vancomycin HCl 100 ml @ 100 mls/hr Q12H IVPB Last administered on 08/17/18at 03:52; Admin Dose 100 MLS/HR; Start 08/16/18 at 16:00 Assessment/Plan Assessment/Plan (Daily) IMP: 1. Worsening hypoxemic respiratory failure, possible aspiration pneumonitis 2. Significant cachexia. 3. Vent dependent respiratory failure. 4. History of dysphagia with G-tube. RECS: 1. Continue antibiotics. 2. Vent support. 3. Cardiac recommendations for rate control. 4. DVT and GI prophylaxis. 5. Tube feeding as tolerated MADDY BETHEA MD Aug 17, 2018 15:26
[2018-08-17] MEDS: VANCOMYCIN 1 GM 250 ML IVPB SCH (17:33)
[2018-08-17] MEDS: ONDANSETRON 4 MG INJ IV PRN (19:33)
[2018-08-18] VITALS (20 sets, daily range): BP systolic 128–149; BP diastolic 57–74; PULSE 65–78; RESP 16–69
[2018-08-18] MEDS: HYDROmorphONE 0.5 MG/0.5 ML SYG IV PRN ×2 (01:05→13:03)
[2018-08-18] MEDS: LACTULOSE 30ML CUP GTB SCH ×4 (01:06→20:00)
[2018-08-18] MEDS: PIPER-TAZO 3.375 GM IV (PMX) 100 ML IVPB SCH ×3 (05:05→23:26)
[2018-08-18] MEDS: VANCOMYCIN 1 GM 250 ML IVPB SCH ×2 (05:37→18:49)
[2018-08-18] MEDS: LIDOCAINE 5% PATCH TD SCH (09:17)
[2018-08-18] MEDS: CHLORHEXIDINE GLUCONATE 15 ML UD CUP MM SCH ×2 (09:17→20:39)
[2018-08-18] MEDS: COLLAGENASE 5 GM (UD JAR) TOP SCH (09:17)
[2018-08-18] MEDS: ASCORBIC ACID 250 MG TAB GTB SCH (09:18)
[2018-08-18] MEDS: FOLIC ACID 1 MG TAB GTB SCH (09:18)
[2018-08-18] MEDS: LANSOPRAZOLE 30 MG CAP GTB SCH (09:18)
[2018-08-18] MEDS: ESCITALOPRAM 10 MG TAB GTB SCH (09:18)
[2018-08-18] MEDS: ZINC SULFATE 220 MG CAP GTB SCH (09:18)
[2018-08-18] MEDS: AMIODARONE 200 MG TAB GTB SCH ×2 (09:19→20:39)
[2018-08-18] MEDS: BALSAM PERU/CASTOR OIL 60 GM TUBE TOP SCH ×2 (09:19→20:40)
[2018-08-18] MEDS: LORAZEPAM 2 MG INJ IV PRN ×2 (09:20→17:22)
[2018-08-18] MEDS: MULTIVITAMINS 30 ML CUP GTB SCH (09:28)
[2018-08-18] MEDS: BUDESONIDE (NEB) 0.5MG/2ML AMP NEB SCH ×2 (09:48→21:05)
[2018-08-18] MEDS ORDERED: SOD CHLORIDE 0.9% IVPB ONE (13:30)
[2018-08-18] MEDS ORDERED: SODIUM PHOSPHATE IVPB ONE (13:30)
[2018-08-18] MEDS ORDERED: SODIUM PHOSPHATE 15 MMOL in SOD CHLORIDE 0.9% 250 ML IVPB ONE (13:30)
--- NOTE | 2018-08-18 15:31 | CONS ---
Assessment/Plan Assessment/Plan Hospital Course (Demo Recall) No acute changes no fevers overnight patient looks comfortable. WBC 5.7 platelets 195 neutrophils 65.7 BUN 11 creatinine 0.29 Sputum culture growing gram-negative rods, blood and urine culture negative Antimicrobials: Vancomycin, Zosyn Indwelling: Tracheostomy, PEG, Hill Physical examination: Chronically ill-appearing elderly man who is awake in no distress. Head atraumatic normocephalic sclera nonicteric. Neck is supple tracheostomy present. Chest rise symmetrical breath sounds diminished bases. Heart: S1-S2. Abdomen soft bowel sounds present. Extremities without cyanosis edema. Skin: Patient has multiple pressure sores Assessment: 1. Sepsis, present on admission 2. Healthcare associated pneumonia 3. Chronic respiratory failure and dysphagia 4. Resolving encephalopathy Plan: Patient remains stable, continue antibiotics, vent management per pulmonary Consultation Date/Type/Reason Admit Date/Time August 15, 2018 at 03:45 Initial Consult Date 08/15/18 Type of Consult id Requesting Provider: ADAN BUSCH DO Date/Time of Note DATE: 08/18/18 TIME: 15:30 Exam/Review of Systems Exam Vitals Vital Signs Date Temp Pulse Resp B/P (MAP) Pulse Ox O2 O2 Flow FiO2 Time Delivery Rate 08/18/18 40 14:38 08/18/18 82 19 100 13:25 08/18/18 98.0 149/68 Mechanical 11:15 (95) Ventilator Intake and Output 08/17/18 08/17/18 08/18/18 1515:00 23:00 07:00 IntakeIntake Total 1390 ml 1140 ml OutputOutput Total 500 ml 600 ml BalanceBalance 890 ml 540 ml Results Result Diagram: 08/18/18 0537 08/18/18 0537 Results 24hrs Laboratory Tests Test 08/18/18 05:37 White Blood Count 5.7 Red Blood Count 2.95 L Hemoglobin 9.1 L Hematocrit 28.5 L Mean Corpuscular Volume 96.6 Mean Corpuscular Hemoglobin 30.8 Mean Corpuscular Hemoglobin Concent 31.9 L Red Cell Distribution Width 15.7 H Platelet Count 195 Mean Platelet Volume 11.1 H Immature Granulocytes % 0.500 H Neutrophils % 65.7 Lymphocytes % 23.9 Monocytes % 7.9 Eosinophils % 1.6 Basophils % 0.4 Nucleated Red Blood Cells % 0.0 Immature Granulocytes # 0.030 Neutrophils # 3.8 Lymphocytes # 1.4 Monocytes # 0.5 Eosinophils # 0.1 Basophils # 0.0 Nucleated Red Blood Cells # 0.0 Sodium Level 139 Potassium Level 3.6 Chloride Level 107 Carbon Dioxide Level 29 Anion Gap 3 L Blood Urea Nitrogen 11 Creatinine 0.29 L Est Glomerular Filtrat Rate mL/min > 60 Glucose Level 82 Calcium Level 7.9 L Phosphorus Level 2.2 L Magnesium Level 1.7 Medications Medication Current Medications Acetaminophen (Tylenol Liquid) 650 mg Q6H PRN GTB MILD PAIN LEVEL 1-3 Last administered on 08/16/18 18:04; Admin Dose 650 MG; Start 08/15/18 at 08:00 Amiodarone HCl (Cordarone) 200 mg BID GTB Last administered on 08/18/18 09:19; Admin Dose 200 MG; Start 08/15/18 at 09:00 Budesonide (Pulmicort (Neb)) 1 mg BID NEB Last administered on 08/18/18 09:48; Admin Dose 0.5 MG; Start 08/15/18 at 09:00 Chlorhexidine Gluconate (Peridex) 15 ml BID MM Last administered on 08/18/18 09:17; Admin Dose 15 ML; Start 08/15/18 at 09:00 Docusate Sodium (Colace Liquid Cup) 100 mg BID PRN GTB CONSTIPATION; Start 08/15/18 at 08:00 Escitalopram Oxalate (Lexapro) 10 mg DAILY GTB Last administered on 08/18/18 09:18; Admin Dose 10 MG; Start 08/15/18 at 09:00 Hydralazine HCl (Apresoline) 10 mg Q8H PRN GTB ELEVATED BLOOD PRESSURE Last administered on 08/15/18 12:08; Admin Dose 10 MG; Start 08/15/18 at 08:00 Albuterol/ Ipratropium (Duoneb) 3 ml Q2H PRN NEB WHEEZING AND SOB Last administered on 08/15/18 20:36; Admin Dose 3 ML; Start 08/15/18 at 08:00 Lidocaine (Lidoderm) 1 patch DAILY TD Last administered on 08/18/18 09:17; Admin Dose 1 PATCH; Start 08/15/18 at 09:00 Al Hydrox/Mg Hydrox/Simethicone (Mag-Al Plus) 30 ml Q6H PRN GTB GASTROINTESTINAL UPSET; Start 08/15/18 at 08:00 Zolpidem Tartrate (Ambien) 5 mg QHS PRN GTB INSOMNIA Last administered on 08/17/18 21:18; Admin Dose 5 MG; Start 08/15/18 at 08:00 Piperacillin Sod/ Tazobactam Sod 100 ml @ 200 mls/hr Q8 IVPB Last administered on 08/18/18 13:39; Admin Dose 200 MLS/HR; Start 08/15/18 at 14:00 Ondansetron HCl (Zofran Inj) 4 mg Q6H PRN IV NAUSEA AND/OR VOMITING Last administered on 08/17/18 19:33; Admin Dose 4 MG; Start 08/15/18 at 10:30 Lactulose (Enulose) 20 gm Q6H GTB Last administered on 08/17/18 08:55; Admin Dose 20 GM; Start 08/15/18 at 14:00 Lansoprazole (Prevacid) 30 mg DAILY GTB Last administered on 08/18/18 09:18; Admin Dose 30 MG; Start 08/15/18 at 10:30 Ascorbic Acid (Vitamin C) 250 mg DAILY GTB Last administered on 08/18/18 09:18; Admin Dose 250 MG; Start 08/16/18 at 09:00 Zinc Sulfate (Zinc Sulfate) 220 mg DAILY GTB Last administered on 08/18/18 09:18; Admin Dose 220 MG; Start 08/16/18 at 09:00 Folic Acid (Folic Acid) 1 mg DAILY GTB Last administered on 08/18/18 09:18; Admin Dose 1 MG; Start 08/16/18 at 09:00 Multivitamins (Multivitamin) 30 ml DAILY GTB Last administered on 08/18/18 09: 28; Admin Dose 30 ML; Start 08/16/18 at 09:00 Hydromorphone HCl (Dilaudid) 0.5 mg Q12H PRN IV SEVERE PAIN LEVEL 7-10 Last administered on 08/18/18 13:03; Admin Dose 0.5 MG; Start 08/16/18 at 10:00 Vancomycin HCl (Vanco Iv Per Pharmacy) VANCOMYCIN PER PHARMACY PER PROTOCOL XX ; Start 08/16/18 at 15:00 Collagenase (Santyl) 1 applic DAILY TOP Last administered on 08/18/18at 09:17; Admin Dose 1 APPLIC; Start 08/17/18 at 09:00 Vancomycin HCl 250 ml @ 125 mls/hr Q12H IVPB Last administered on 08/18/18at 05:37; Admin Dose 125 MLS/HR; Start 08/17/18 at 17:00 Lorazepam (Ativan) 0.5 mg Q8H PRN IV ANXIETY Last administered on 08/18/18at 09:20; Admin Dose 0.5 MG; Start 08/18/18 at 08:30 Sodium Phosphate 15 mmol/Sodium Chloride 250 ml @ 63.75 mls/ hr ONCE ONCE IVPB Last administered on 08/18/18at 14:57; Admin Dose 63.75 MLS/HR; Start 08/18/18 at 13:30; Stop 08/18/18 at 17:25 Miscellaneous Information (*Rx Drug Level Order Reminder*) VANCO TROUGH 08/19 @ 1,600 1600 ONCE XX ; Start 08/19/18 at 16:00; Stop 08/19/18 at 16:01 JANIS KEMP NP Aug 18, 2018 15:31
[2018-08-18] MEDS: ZOLPIDEM 5 MG TAB GTB PRN (20:40)
--- NOTE | 2018-08-18 22:22 | CONS ---
Consult Date/Type/Reason Admit Date/Time August 15, 2018 at 03:45 Initial Consult Date 08/15/18 Type of Consultation: Pulm Requesting Provider: ADAN BUSCH DO Date/Time of Note DATE: 08/18/18 TIME: 22:20 Subjective No events. Stable on MV. Objective Vitals Vital Signs Date Temp Pulse Resp B/P (MAP) Pulse Ox O2 O2 Flow FiO2 Time Delivery Rate 08/18/18 74 26 100 40 21:06 08/18/18 98.2 128/57 20:00 (80) 08/18/18 Mechanical 15:50 Ventilator Intake and Output 08/17/18 08/17/18 08/18/18 1515:00 23:00 07:00 IntakeIntake Total 1390 ml 1140 ml OutputOutput Total 500 ml 600 ml BalanceBalance 890 ml 540 ml Exam GENERAL: Elderly cachectic gentleman, awake, alert, oriented on mechanical ventilation via tracheostomy. NECK: Supple. No JVD or lymphadenopathy. CARDIAC: S1, S2. No added sounds or murmurs. CHEST: Diminished air entry bilaterally. ABDOMEN: Soft, nontender. No guarding or rebound. EXTREMITIES: No clubbing, cyanosis or edema. NEUROLOGIC: Grossly intact. No focal deficits. Results/Medications Result Diagram: 08/18/18 0537 08/18/18 0537 Results 24 hrs Laboratory Tests Test 08/18/18 05:37 White Blood Count 5.7 Red Blood Count 2.95 L Hemoglobin 9.1 L Hematocrit 28.5 L Mean Corpuscular Volume 96.6 Mean Corpuscular Hemoglobin 30.8 Mean Corpuscular Hemoglobin Concent 31.9 L Red Cell Distribution Width 15.7 H Platelet Count 195 Mean Platelet Volume 11.1 H Immature Granulocytes % 0.500 H Neutrophils % 65.7 Lymphocytes % 23.9 Monocytes % 7.9 Eosinophils % 1.6 Basophils % 0.4 Nucleated Red Blood Cells % 0.0 Immature Granulocytes # 0.030 Neutrophils # 3.8 Lymphocytes # 1.4 Monocytes # 0.5 Eosinophils # 0.1 Basophils # 0.0 Nucleated Red Blood Cells # 0.0 Sodium Level 139 Potassium Level 3.6 Chloride Level 107 Carbon Dioxide Level 29 Anion Gap 3 L Blood Urea Nitrogen 11 Creatinine 0.29 L Est Glomerular Filtrat Rate mL/min > 60 Glucose Level 82 Calcium Level 7.9 L Phosphorus Level 2.2 L Magnesium Level 1.7 Home Meds Reported Medications Lidocaine (Lidoderm) 1 Each Adh..patch, 1 EACH TP DAILY PUT ON AT 0900 AND TAKE OFF AT 2100 08/15/18 Mag Hydrox/Al Hydrox/Simeth (Maalox Advanced Suspension) 355 Ml Oral.susp, 30 ML GTB Q6 PRN for GASTROINTESTINAL UPSET 08/15/18 Pantoprazole* (Protonix*) 40 Mg Tablet.dr, 40 MG GTB DAILY, TAB 08/15/18 Protein Supplement (Promod) 946 Ml Liquid, 30 ML GTB BID 08/15/18 Budesonide* (Pulmicort*) 1 Mg/2 Ml Ampul.neb, 1 MG INHALATION BID, #60 AMP 08/15/18 [place] Oil (Venelex Ointment) 60 Gm Oint..gm., 1 APPLIC TOP NEEDED, #1 TUB APPLY TO SACRUM TOPICALLY DAILY 08/15/18 Ondansetron Hcl* (Zofran*) 4 Mg Tab, 4 MG PO Q6H PRN for NAUSEA AND OR VOMITING, TAB 08/15/18 Zolpidem Tartrate* (Zolpidem Tartrate*) 5 Mg Tablet, 5 MG GTB QHS PRN for INSOMNIA, #30 TAB 08/15/18 Lactulose* (Lactulose*) 20 Gm/30 Ml Solution, 20 GM PO Q6H for CONSTIPATION, ML 08/15/18 Ipratropium-Albuterol (Ipratropium-Albuterol) 0.5-3 Mg/3 Ml Ampul.neb, 3 ML INHALATION Q2H PRN for WHEEZING AND SOB, #30 VIAL 08/15/18 Hydralazine Hcl* (Hydralazine Hcl*) 10 Mg Tablet, 10 MG GTB Q8 PRN for ELEVATED BLOOD PRESSURE, #90 TAB HOLD IF SBP IS <110 OR HR IS <60 08/15/18 Escitalopram Oxalate* (Lexapro*) 10 Mg Tablet, 10 MG GTB DAILY, #30 TAB 08/15/18 Docusate Sodium* (Docusate Sodium* Liq) 50 Mg/5 Ml Liquid, 100 MG GTB BID PRN fo r CONSTIPATION, ML 08/15/18 Acetaminophen* (Acetaminophen* Susp) 325 Mg/10.15 Ml Solution, 650 MG GTB Q6 PRN for MILD PAIN LEVEL 1-3, ML 08/15/18 Lactobacillus Acidophilus* (Lactinex*) 1 Tab Chew, 1 TAB GTB BID, TAB 08/15/18 Amiodarone Hcl* (Amiodarone Hcl*) 200 Mg Tablet, 200 MG GTB BID, #60 TAB HOLD FOR HR >60 08/15/18 Chlorhexidine Gluconate (Peridex) 473 Ml Mouthwash, 15 ML MM BID, BOTTLE 08/15/18 Medications Current Medications Acetaminophen (Tylenol Liquid) 650 mg Q6H PRN GTB MILD PAIN LEVEL 1-3 Last administered on 08/16/18 18:04; Admin Dose 650 MG; Start 08/15/18 at 08:00 Amiodarone HCl (Cordarone) 200 mg BID GTB Last administered on 08/18/18 20:39; Admin Dose 200 MG; Start 08/15/18 at 09:00 Budesonide (Pulmicort (Neb)) 1 mg BID NEB Last administered on 08/18/18 21:05; Admin Dose 1 MG; Start 08/15/18 at 09:00 Chlorhexidine Gluconate (Peridex) 15 ml BID MM Last administered on 08/18/18 20:39; Admin Dose 15 ML; Start 08/15/18 at 09:00 Docusate Sodium (Colace Liquid Cup) 100 mg BID PRN GTB CONSTIPATION; Start 08/15/18 at 08:00 Escitalopram Oxalate (Lexapro) 10 mg DAILY GTB Last administered on 08/18/18 09:18; Admin Dose 10 MG; Start 08/15/18 at 09:00 Hydralazine HCl (Apresoline) 10 mg Q8H PRN GTB ELEVATED BLOOD PRESSURE Last administered on 08/15/18 12:08; Admin Dose 10 MG; Start 08/15/18 at 08:00 Albuterol/ Ipratropium (Duoneb) 3 ml Q2H PRN NEB WHEEZING AND SOB Last administered on 08/15/18 20:36; Admin Dose 3 ML; Start 08/15/18 at 08:00 Lidocaine (Lidoderm) 1 patch DAILY TD Last administered on 08/18/18 09:17; Admin Dose 1 PATCH; Start 08/15/18 at 09:00 Al Hydrox/Mg Hydrox/Simethicone (Mag-Al Plus) 30 ml Q6H PRN GTB GASTROIN TESTINAL UPSET; Start 08/15/18 at 08:00 Zolpidem Tartrate (Ambien) 5 mg QHS PRN GTB INSOMNIA Last administered on 08/18/18 20:40; Admin Dose 5 MG; Start 08/15/18 at 08:00 Piperacillin Sod/ Tazobactam Sod 100 ml @ 200 mls/hr Q8 IVPB Last administered on 08/18/18 13:39; Admin Dose 200 MLS/HR; Start 08/15/18 at 14:00 Ondansetron HCl (Zofran Inj) 4 mg Q6H PRN IV NAUSEA AND/OR VOMITING Last administered on 08/17/18 19:33; Admin Dose 4 MG; Start 08/15/18 at 10:30 Lactulose (Enulose) 20 gm Q6H GTB Last administered on 08/17/18 08:55; Admin Dose 20 GM; Start 08/15/18 at 14:00 Lansoprazole (Prevacid) 30 mg DAILY GTB Last administered on 08/18/18 09:18; Admin Dose 30 MG; Start 08/15/18 at 10:30 Ascorbic Acid (Vitamin C) 250 mg DAILY GTB Last administered on 08/18/18 09:18; Admin Dose 250 MG; Start 08/16/18 at 09:00 Zinc Sulfate (Zinc Sulfate) 220 mg DAILY GTB Last administered on 08/18/18 09:18; Admin Dose 220 MG; Start 08/16/18 at 09:00 Folic Acid (Folic Acid) 1 mg DAILY GTB Last administered on 08/18/18 09:18; Admin Dose 1 MG; Start 08/16/18 at 09:00 Multivitamins (Multivitamin) 30 ml DAILY GTB Last administered on 08/18/18 09:28; Admin Dose 30 ML; Start 08/16/18 at 09:00 Hydromorphone HCl (Dilaudid) 0.5 mg Q12H PRN IV SEVERE PAIN LEVEL 7-10 Last administered on 08/18/18 13:03; Admin Dose 0.5 MG; Start 08/16/18 at 10:00 Vancomycin HCl (Vanco Iv Per Pharmacy) VANCOMYCIN PER PHARMACY PER PROTOCOL XX ; Start 08/16/18 at 15:00 Collagenase (Santyl) 1 applic DAILY TOP Last administered on 08/18/18at 09:17; Admin Dose 1 APPLIC; Start 08/17/18 at 09:00 Vancomycin HCl 250 ml @ 125 mls/hr Q12H IVPB Last administered on 08/18/18at 18:49; Admin Dose 125 MLS/HR; Start 08/17/18 at 17:00 Lorazepam (Ativan) 0.5 mg Q8H PRN IV ANXIETY Last administered on 08/18/18at 17:22; Admin Dose 0.5 MG; Start 08/18/18 at 08:30 Miscellaneous Information (*Rx Drug Level Order Reminder*) VANCO TROUGH 08/19 @ 1,600 1600 ONCE XX ; Start 08/19/18 at 16:00; Stop 08/19/18 at 16:01 Assessment/Plan Assessment/Plan (Daily) IMP: 1. Hypoxemic respiratory failure, possible aspiration pneumonitis 2. Significant cachexia. 3. Vent dependent respiratory failure. 4. History of dysphagia with G-tube. RECS: 1. Continue antibiotics. 2. Vent support/titrate FiO2 3. BD's/CPT 4. DVT and GI prophylaxis. 5. Tube feeding as tolerated MADDY BETHEA MD Aug 18, 2018 22:22
[2018-08-19] VITALS (22 sets, daily range): BP systolic 131–144; BP diastolic 62–65; PULSE 68–86; RESP 19–29
[2018-08-19] MEDS: HYDROmorphONE 0.5 MG/0.5 ML SYG IV PRN ×2 (00:27→12:51)
[2018-08-19] MEDS: LORAZEPAM 2 MG INJ IV PRN ×3 (01:15→22:49)
[2018-08-19] MEDS: LACTULOSE 30ML CUP GTB SCH ×4 (02:00→20:28)
[2018-08-19] MEDS: PIPER-TAZO 3.375 GM IV (PMX) 100 ML IVPB SCH ×3 (05:37→21:56)
[2018-08-19] MEDS: VANCOMYCIN 1 GM 250 ML IVPB SCH (06:09)
[2018-08-19] MEDS ORDERED: POTASSIUM CHLORIDE 20 MEQ POWDER FOR ORAL SOLN NGT ONE (08:30)
[2018-08-19] MEDS: BUDESONIDE (NEB) 0.5MG/2ML AMP NEB SCH ×2 (08:33→20:01)
[2018-08-19] MEDS: MULTIVITAMINS 30 ML CUP GTB SCH (09:25)
[2018-08-19] MEDS: ASCORBIC ACID 250 MG TAB GTB SCH (09:26)
[2018-08-19] MEDS: ZINC SULFATE 220 MG CAP GTB SCH (09:26)
[2018-08-19] MEDS: LANSOPRAZOLE 30 MG CAP GTB SCH (09:26)
[2018-08-19] MEDS: CHLORHEXIDINE GLUCONATE 15 ML UD CUP MM SCH ×2 (09:26→20:28)
[2018-08-19] MEDS: COLLAGENASE 5 GM (UD JAR) TOP SCH (09:26)
[2018-08-19] MEDS: FOLIC ACID 1 MG TAB GTB SCH (09:26)
[2018-08-19] MEDS: ESCITALOPRAM 10 MG TAB GTB SCH (09:26)
[2018-08-19] MEDS: LIDOCAINE 5% PATCH TD SCH (09:27)
[2018-08-19] MEDS: AMIODARONE 200 MG TAB GTB SCH ×2 (09:28→20:28)
[2018-08-19] MEDS: BALSAM PERU/CASTOR OIL 60 GM TUBE TOP SCH ×2 (09:29→20:28)
--- NOTE | 2018-08-19 11:45 | CONS ---
Assessment/Plan Assessment/Plan Assessment/Plan (Daily) Ventilator setting; assist control of 16, tidal volume 500, PEEP of 5, 40% FiO2. Assessment recommendations; 1. Patient with history of VDRF admitted for bilateral pneumonia with interval improvement. Currently on appropriate antimicrobial regimen. 2. Critical illness neuropathy/myopathy. Continue current supportive care. Antibiotics per ID recommendations. Consultation Date/Type/Reason Admit Date/Time August 15, 2018 at 03:45 Initial Consult Date 08/15/18 Type of Consult Pulmonary Patient's condition is stable. Remains awake and alert. Has remained hemodynamically stable. General exam; elderly male, on ventilator via tracheostomy, currently in no distress. Reason for Consultation H EENT exam; supple neck, no JVD. No lymphadenopathy. Midline trachea. No thyromegaly. Tracheostomy in place. Insertion site is clean. No neck masses. Patient has carious teeth. Chest exam; diminished but clear breath sounds. S1-S2 audible, no murmurs. Regular rhythm. Abdomen exam; soft, nontender. No organomegaly. G-tube in place. Bowel sounds audible. Extremity exam; peripheral edema clubbing. 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 Patient to exhibiting generalized weakness. Requesting Provider: ADAN BUSCH DO Date/Time of Note DATE: 08/19/18 TIME: 11:44 Exam/Review of Systems Exam Vitals Vital Signs Date Temp Pulse Resp B/P (MAP) Pulse Ox O2 O2 Flow FiO2 Time Delivery Rate 08/19/18 75 22 96 40 10:09 08/19/18 98.0 131/63 07:50 (85) 08/18/18 Mechanical 15:50 Ventilator Intake and Output 08/18/18 08/18/18 08/19/18 1515:00 23:00 07:00 IntakeIntake Total 450 ml OutputOutput Total 550 ml BalanceBalance -550 ml 450 ml Results Result Diagram: 08/19/18 0534 08/19/18 0534 Results 24hrs Laboratory Tests Test 08/19/18 05:34 White Blood Count 7.2 # Red Blood Count 2.89 L Hemoglobin 9.0 L Hematocrit 27.5 L Mean Corpuscular Volume 95.2 Mean Corpuscular Hemoglobin 31.1 Mean Corpuscular Hemoglobin Concent 32.7 Red Cell Distribution Width 15.3 H Platelet Count 217 Mean Platelet Volume 11.0 H Immature Granulocytes % 0.600 H Neutrophils % 72.1 Lymphocytes % 16.5 Monocytes % 9.3 Eosinophils % 1.2 Basophils % 0.3 Nucleated Red Blood Cells % 0.0 Immature Granulocytes # 0.040 H Neutrophils # 5.2 Lymphocytes # 1.2 Monocytes # 0.7 Eosinophils # 0.1 Basophils # 0.0 Nucleated Red Blood Cells # 0.0 Sodium Level 136 Potassium Level 3.3 L Chloride Level 104 Carbon Dioxide Level 30 Anion Gap 2 L Blood Urea Nitrogen 8 Creatinine 0.26 L Est Glomerular Filtrat Rate mL/min > 60 Glucose Level 115 Calcium Level 7.4 L Phosphorus Level 3.0 Magnesium Level 1.7 Medications Medication Current Medications Acetaminophen (Tylenol Liquid) 650 mg Q6H PRN GTB MILD PAIN LEVEL 1-3 Last administered on 08/16/18 18:04; Admin Dose 650 MG; Start 08/15/18 at 08:00 Amiodarone HCl (Cordarone) 200 mg BID GTB Last administered on 08/19/18 09:28; Admin Dose 200 MG; Start 08/15/18 at 09:00 Budesonide (Pulmicort (Neb)) 1 mg BID NEB Last administered on 08/19/18 08:33; Admin Dose 0.5 MG; Start 08/15/18 at 09:00 Chlorhexidine Gluconate (Peridex) 15 ml BID MM Last administered on 08/19/18 09:26; Admin Dose 15 ML; Start 08/15/18 at 09:00 Docusate Sodium (Colace Liquid Cup) 100 mg BID PRN GTB CONSTIPATION; Start 08/15/18 at 08:00 Escitalopram Oxalate (Lexapro) 10 mg DAILY GTB Last administered on 08/19/18 09:26; Admin Dose 10 MG; Start 08/15/18 at 09:00 Hydralazine HCl (Apresoline) 10 mg Q8H PRN GTB ELEVATED BLOOD PRESSURE Last administered on 08/15/18 12:08; Admin Dose 10 MG; Start 08/15/18 at 08:00 Albuterol/ Ipratropium (Duoneb) 3 ml Q2H PRN NEB WHEEZING AND SOB Last administered on 08/15/18 20:36; Admin Dose 3 ML; Start 08/15/18 at 08:00 Lidocaine (Lidoderm) 1 patch DAILY TD Last administered on 08/19/18 09:27; Admin Dose 1 PATCH; Start 08/15/18 at 09:00 Al Hydrox/Mg Hydrox/Simethicone (Mag-Al Plus) 30 ml Q6H PRN GTB GASTROINTESTINAL UPSET; Start 08/15/18 at 08:00 Zolpidem Tartrate (Ambien) 5 mg QHS PRN GTB INSOMNIA Last administered on 08/18/18 20:40; Admin Dose 5 MG; Start 08/15/18 at 08:00 Piperacillin Sod/ Tazobactam Sod 100 ml @ 200 mls/hr Q8 IVPB Last administered on 08/19/18 05:37; Admin Dose 200 MLS/HR; Start 08/15/18 at 14:00 Ondansetron HCl (Zofran Inj) 4 mg Q6H PRN IV NAUSEA AND/OR VOMITING Last administered on 08/17/18 19:33; Admin Dose 4 MG; Start 08/15/18 at 10:30 Lactulose (Enulose) 20 gm Q6H GTB Last administered on 08/19/18 09:25; Admin Dose 20 GM; Start 08/15/18 at 14:00 Lansoprazole (Prevacid) 30 mg DAILY GTB Last administered on 08/19/18 09:26; Admin Dose 30 MG; Start 08/15/18 at 10:30 Ascorbic Acid (Vitamin C) 250 mg DAILY GTB Last administered on 08/19/18 09:26; Admin Dose 250 MG; Start 08/16/18 at 09:00 Zinc Sulfate (Zinc Sulfate) 220 mg DAILY GTB Last administered on 08/19/18 09:26; Admin Dose 220 MG; Start 08/16/18 at 09:00 Folic Acid (Folic Acid) 1 mg DAILY GTB Last administered on 08/19/18 09:26; Admin Dose 1 MG; Start 08/16/18 at 09:00 Multivitamins (Multivitamin) 30 ml DAILY GTB Last administered on 08/19/18 09:25; Admin Dose 30 ML; Start 08/16/18 at 09:00 Hydromorphone HCl (Dilaudid) 0.5 mg Q12H PRN IV SEVERE PAIN LEVEL 7-10 Last administered on 08/19/18 00:27; Admin Dose 0.5 MG; Start 08/16/18 at 10:00 Vancomycin HCl (Vanco Iv Per Pharmacy) VANCOMYCIN PER PHARMACY PER PROTOCOL XX ; Start 08/16/18 at 15:00 Collagenase (Santyl) 1 applic DAILY TOP Last administered on 08/19/18at 09:26; Admin Dose 1 APPLIC; Start 08/17/18 at 09:00 Vancomycin HCl 250 ml @ 125 mls/hr Q12H IVPB Last administered on 08/19/18at 06:09; Admin Dose 125 MLS/HR; Start 08/17/18 at 17:00 Lorazepam (Ativan) 0.5 mg Q8H PRN IV ANXIETY Last administered on 08/19/18at 01:15; Admin Dose 0.5 MG; Start 08/18/18 at 08:30 Miscellaneous Information (*Rx Drug Level Order Reminder*) VANCO TROUGH 08/19 @ 1,600 1600 ONCE XX ; Start 08/19/18 at 16:00; Stop 08/19/18 at 16:01 DEWAYNE MARTEL Aug 19, 2018 11:45
--- NOTE | 2018-08-19 14:25 | PN ---
DATE: 08/19/2018 SUBJECTIVE: The patient remains stable on full ventilatory support. No other events noted. No hemo ptysis, hematemesis, hematochezia. OBJECTIVE: VITAL SIGNS: Blood pressure is 131/63, respiratory rate 20, pulse 68, temperature 98.0. HEENT: Head is normocephalic. NECK: Supple. HEART: Regular rate. LUNGS: Show diminished breath sounds at the base. ABDOMEN: Soft, nontender to palpation without rebound or guarding. EXTREMITIES: Negative for clubbing, cyanosis, no edema. DERMATOLOGIC: No rashes. MUSCULOSKELETAL: No joint effusion. NEUROLOGIC: No change in exam. MEDICATIONS: Have been reviewed. LABORATORY DATA: Has been reviewed. IMAGING STUDIES: Have been reviewed. ASSESSMENT AND PLAN: 1. Sepsis secondary to healthcare-associated pneumonia. The patient is clinically improving. Sonido [place] current antibiotic regimen. Continue to monitor. Follow up with infectious disease. 2. Ventilator-dependent respiratory failure. Vent settings and ABG is reviewed. Continue to monito r. Follow up with pulmonary. 3. Dysphagia, status post PEG. Continue tube feeding. 4. Anemia. Monitor hemoglobin and hematocrit levels. 5. Hypokalemia. Continue to monitor and replete. 6. Hypernatremia, improved. 7. Chronic pain syndrome. The patient has noted degenerative joint disease in neck and back. Sonido nue current pain regimen. 8. Sinus arrhythmia, currently in sinus rhythm. Continue to monitor. 9. Hypertension. Continue blood pressure regimen. 10. Constipation. Continue lactulose. 11. Depression. Continue Lexapro. 12. Encephalopathy, improving. 13. Gastrointestinal and deep vein thrombosis prophylaxis. 14. Lower extremity wounds. Continue wound care. DISPOSITION: We will place a consult for Concepcion. Dictated By: ADAN BUSCH DO NR/NTS Conf#: [id number] DID#: [id number] CC: CHITRA LANDEROS DO;*EndCC*
--- NOTE | 2018-08-19 15:03 | CONS ---
Assessment/Plan Assessment/Plan Hospital Course (Demo Recall) Alert, feels better, no fevers overnight. Endotracheal aspirate grew Klebsiella susceptible to all antibiotics except Ancef Antimicrobials: Vancomycin, Zosyn Indwelling: Tracheostomy, PEG, [place] Physical examination: Chronically ill-appearing elderly man who is awake in no distress. Head atraumatic normocephalic sclera nonicteric. Neck is supple tracheostomy present. Chest rise symmetrical breath sounds diminished bases. Heart: S1-S2. Abdomen soft bowel sounds present. Extremities without cyanosis edema. Skin: Patient has multiple pressure sores Assessment: 1. Sepsis, present on admission 2. Healthcare associated pneumonia 3. Chronic respiratory failure and dysphagia 4. Resolving encephalopathy Plan: Improving, DC Vanco, continue Zosyn, vent management per pulmonary Consultation Date/Type/Reason Admit Date/Time August 15, 2018 at 03:45 Initial Consult Date 08/15/18 Type of Consult id Requesting Provider: ADAN BUSCH DO Date/Time of Note DATE: 08/19/18 TIME: 15:00 Exam/Review of Systems Exam Vitals Vital Signs Date Temp Pulse Resp B/P (MAP) Pulse Ox O2 O2 Flow FiO2 Time Delivery Rate 08/19/18 73 12:00 08/19/18 98.1 20 142/65 90 11:45 (90) 08/19/18 40 10:09 08/18/18 Mechanical 15:50 Ventilator Intake and Output 08/18/18 08/18/18 08/19/18 1515:00 23:00 07:00 IntakeIntake Total 450 ml OutputOutput Total 550 ml BalanceBalance -550 ml 450 ml Results Result Diagram: 08/19/18 0534 08/19/18 0534 Results 24hrs Laboratory Tests Test 08/19/18 05:34 White Blood Count 7.2 # Red Blood Count 2.89 L Hemoglobin 9.0 L Hematocrit 27.5 L Mean Corpuscular Volume 95.2 Mean Corpuscular Hemoglobin 31.1 Mean Corpuscular Hemoglobin Concent 32.7 Red Cell Distribution Width 15.3 H Platelet Count 217 Mean Platelet Volume 11.0 H Immature Granulocytes % 0.600 H Neutrophils % 72.1 Lymphocytes % 16.5 Monocytes % 9.3 Eosinophils % 1.2 Basophils % 0.3 Nucleated Red Blood Cells % 0.0 Immature Granulocytes # 0.040 H Neutrophils # 5.2 Lymphocytes # 1.2 Monocytes # 0.7 Eosinophils # 0.1 Basophils # 0.0 Nucleated Red Blood Cells # 0.0 Sodium Level 136 Potassium Level 3.3 L Chloride Level 104 Carbon Dioxide Level 30 Anion Gap 2 L Blood Urea Nitrogen 8 Creatinine 0.26 L Est Glomerular Filtrat Rate mL/min > 60 Glucose Level 115 Calcium Level 7.4 L Phosphorus Level 3.0 Magnesium Level 1.7 Medications Medication Current Medications Acetaminophen (Tylenol Liquid) 650 mg Q6H PRN GTB MILD PAIN LEVEL 1-3 Last administered on 08/16/18 18:04; Admin Dose 650 MG; Start 08/15/18 at 08:00 Amiodarone HCl (Cordarone) 200 mg BID GTB Last administered on 08/19/18 09:28; Admin Dose 200 MG; Start 08/15/18 at 09:00 Budesonide (Pulmicort (Neb)) 1 mg BID NEB Last administered on 08/19/18 08:33; Admin Dose 0.5 MG; Start 08/15/18 at 09:00 Chlorhexidine Gluconate (Peridex) 15 ml BID MM Last administered on 08/19/18 09:26; Admin Dose 15 ML; Start 08/15/18 at 09:00 Docusate Sodium (Colace Liquid Cup) 100 mg BID PRN GTB CONSTIPATION; Start 08/15/18 at 08:00 Escitalopram Oxalate (Lexapro) 10 mg DAILY GTB Last administered on 08/19/18 09:26; Admin Dose 10 MG; Start 08/15/18 at 09:00 Hydralazine HCl (Apresoline) 10 mg Q8H PRN GTB ELEVATED BLOOD PRESSURE Last administered on 08/15/18 12:08; Admin Dose 10 MG; Start 08/15/18 at 08:00 Albuterol/ Ipratropium (Duoneb) 3 ml Q2H PRN NEB WHEEZING AND SOB Last administered on 08/15/18 20:36; Admin Dose 3 ML; Start 08/15/18 at 08:00 Lidocaine (Lidoderm) 1 patch DAILY TD Last administered on 08/19/18 09:27; Admin Dose 1 PATCH; Start 08/15/18 at 09:00 Al Hydrox/Mg Hydrox/Simethicone (Mag-Al Plus) 30 ml Q6H PRN GTB GASTROINTESTINAL UPSET; Start 08/15/18 at 08:00 Zolpidem Tartrate (Ambien) 5 mg QHS PRN GTB INSOMNIA Last administered on 08/18/18 20:40; Admin Dose 5 MG; Start 08/15/18 at 08:00 Piperacillin Sod/ Tazobactam Sod 100 ml @ 200 mls/hr Q8 IVPB Last administered on 08/19/18 14:48; Admin Dose 200 MLS/HR; Start 08/15/18 at 14:00 Ondansetron HCl (Zofran Inj) 4 mg Q6H PRN IV NAUSEA AND/OR VOMITING Last administered on 08/17/18 19:33; Admin Dose 4 MG; Start 08/15/18 at 10:30 Lactulose (Enulose) 20 gm Q6H GTB Last administered on 08/19/18 14:48; Admin Dose 20 GM; Start 08/15/18 at 14:00 Lansoprazole (Prevacid) 30 mg DAILY GTB Last administered on 08/19/18 09:26; Admin Dose 30 MG; Start 08/15/18 at 10:30 Ascorbic Acid (Vitamin C) 250 mg DAILY GTB Last administered on 08/19/18 09:26; Admin Dose 250 MG; Start 08/16/18 at 09:00 Zinc Sulfate (Zinc Sulfate) 220 mg DAILY GTB Last administered on 08/19/18 09:26; Admin Dose 220 MG; Start 08/16/18 at 09:00 Folic Acid (Folic Acid) 1 mg DAILY GTB Last administered on 08/19/18 09:26; Admin Dose 1 MG; Start 08/16/18 at 09:00 Multivitamins (Multivitamin) 30 ml DAILY GTB Last administered on 08/19/18 09:25; Admin Dose 30 ML; Start 08/16/18 at 09:00 Hydromorphone HCl (Dilaudid) 0.5 mg Q12H PRN IV SEVERE PAIN LEVEL 7-10 Last administered on 08/19/18 12:51; Admin Dose 0.5 MG; Start 08/16/18 at 10:00 Vancomycin HCl (Vanco Iv Per Pharmacy) VANCOMYCIN PER PHARMACY PER PROTOCOL XX ; Start 08/16/18 at 15:00 Collagenase (Santyl) 1 applic DAILY TOP Last administered on 08/19/18at 09:26; Admin Dose 1 APPLIC; Start 08/17/18 at 09:00 Vancomycin HCl 250 ml @ 125 mls/hr Q12H IVPB Last administered on 08/19/18at 06:09; Admin Dose 125 MLS/HR; Start 08/17/18 at 17:00 Lorazepam (Ativan) 0.5 mg Q8H PRN IV ANXIETY Last administered on 08/19/18at 14:48; Admin Dose 0.5 MG; Start 08/18/18 at 08:30 Miscellaneous Information (*Rx Drug Level Order Reminder*) VANCO TROUGH 08/19 @ 1,600 1600 ONCE XX ; Start 08/19/18 at 16:00; Stop 08/19/18 at 16:01 JANIS KEMP NP Aug 19, 2018 15:03
[2018-08-19] MEDS: ALBUTEROL/IPRATROPIUM (NEB) 3 ML AMP NEB PRN (15:45)
--- NOTE | 2018-08-19 15:55 | CONS ---
Consult Date/Type/Reason Admit Date/Time August 15, 2018 at 03:45 Initial Consult Date 08/15/18 Type of Consultation: cv Requesting Provider: ADAN BUSCH DO Date/Time of Note DATE: 08/19/18 TIME: 15:52 Subjective Interventional cardiology follow-up progress note Subjective: Discussed with the staff and telemetry was reviewed. Patient remains in normal sinus rhythm. No episode of atrial fibrillation overnight reported. Heart rate has significantly improved as well He is s/p tracheostomy on the vent. still with copious amount of dark yellow sputum per RT report He denies any left-sided chest pain or pressure to me denies any palpitation to me Objective: General: Thin cachectic looking gentleman status post tracheostomy HEENT: NC/AT. pupils are equal. round. NECK: Status post tracheostomy. no stridor. CV: Regular rate and rhythm. systolic murmur; no gallop or rubs. PULM: no wheezing mild diffuse rhonchi. GI: SOFT, NT, ND, no rebound or guarding status post tube feeding placement Extremity: No significant LE edema. no clubbing. neuro: awake and alert, responds appropriately Psych: Anxious but pleasant rectal: deferred : normal EKG was personally reviewed shows sinus tachycardia Chest x-ray done August 15, 2018 shows: Bilateral increased interstitial markings could represent interstitial edema or infiltrates.Small left-sided pleural effusion.Aortic atherosclerosis. Chest x-ray done 08/16/2018 shows: Patchy multifocal right greater than left basilar alveolar infiltrates concerning for multifocal pneumonia are increased. Minimal left pleural effusion unchanged. Echocardiogram done on March 2018 showed: Hyperdynamic left ventricular systolic function. Normal left ventricular cavity size. Mild concentric left ventricular hypertrophy. Ejection fraction is visually estimated at 75 %. Normal appearance and function of the mitral valve with trace physiologic regurgitation. Normal appearance of the aortic valve. No significant aortic stenosis or insufficiency. Normal appearance of the tricuspid valve. Estimated peak PA systolic pressure 38 mmHg. There is trace tricuspid regurgitation. Normal IVC with respiratory collapse, however patient on ventilator. Echocardiogram done August 16, 2018 shows: Normal left ventricular systolic function. Normal left ventricular cavity size. Left ventricle not well visualized. Normal left ventricular wall thickness. Ejection fraction is visually estimated at 70 %. Abnormal Diastolic Function. Normal appearance and function of the mitral valve with trace physiologic regurgitation. Mitral valve is not well visualized. Normal appearance of the aortic valve. No significant aortic stenosis or insufficiency. Aortic valve not well visualized. Normal appearance of the tricuspid valve. Tricuspid valve not well visualized. The estimated Peak RVSP is 36 mmHg. There is trace tricuspid regurgitation. Objective Vitals Vital Signs Date Temp Pulse Resp B/P (MAP) Pulse Ox O2 O2 Flow FiO2 Time Delivery Rate 08/19/18 98.3 86 20 133/62 90 15:08 (85) 08/19/18 40 10:09 08/18/18 Mechanical 15:50 Ventilator Intake and Output 08/18/18 08/18/18 08/19/18 1515:00 23:00 07:00 IntakeIntake Total 450 ml OutputOutput Total 550 ml BalanceBalance -550 ml 450 ml Results/Medications Result Diagram: 08/19/18 0534 08/19/18 0534 Results 24 hrs Laboratory Tests Test 08/19/18 05:34 White Blood Count 7.2 # Red Blood Count 2.89 L Hemoglobin 9.0 L Hematocrit 27.5 L Mean Corpuscular Volume 95.2 Mean Corpuscular Hemoglobin 31.1 Mean Corpuscular Hemoglobin Concent 32.7 Red Cell Distribution Width 15.3 H Platelet Count 217 Mean Platelet Volume 11.0 H Immature Granulocytes % 0.600 H Neutrophils % 72.1 Lymphocytes % 16.5 Monocytes % 9.3 Eosinophils % 1.2 Basophils % 0.3 Nucleated Red Blood Cells % 0.0 Immature Granulocytes # 0.040 H Neutrophils # 5.2 Lymphocytes # 1.2 Monocytes # 0.7 Eosinophils # 0.1 Basophils # 0.0 Nucleated Red Blood Cells # 0.0 Sodium Level 136 Potassium Level 3.3 L Chloride Level 104 Carbon Dioxide Level 30 Anion Gap 2 L Blood Urea Nitrogen 8 Creatinine 0.26 L Est Glomerular Filtrat Rate mL/min > 60 Glucose Level 115 Calcium Level 7.4 L Phosphorus Level 3.0 Magnesium Level 1.7 Home Meds Reported Medications Lidocaine (Lidoderm) 1 Each Adh..patch, 1 EACH TP DAILY PUT ON AT 0900 AND TAKE OFF AT 2100 08/15/18 Mag Hydrox/Al Hydrox/Simeth (Maalox Advanced Suspension) 355 Ml Oral.susp, 30 ML GTB Q6 PRN for GASTROINTESTINAL UPSET 08/15/18 Pantoprazole* (Protonix*) 40 Mg Tablet.dr, 40 MG GTB DAILY, TAB 08/15/18 Protein Supplement (Promod) 946 Ml Liquid, 30 ML GTB BID 08/15/18 Budesonide* (Pulmicort*) 1 Mg/2 Ml Ampul.neb, 1 MG INHALATION BID, #60 AMP 08/15/18 Balsam [place] Oil (Venelex Ointment) 60 Gm Oint..gm., 1 APPLIC TOP NEEDED, #1 TUB APPLY TO SACRUM TOPICALLY DAILY 08/15/18 Ondansetron Hcl* (Zofran*) 4 Mg Tab, 4 MG PO Q6H PRN for NAUSEA AND OR VOMITING, TAB 08/15/18 Zolpidem Tartrate* (Zolpidem Tartrate*) 5 Mg Tablet, 5 MG GTB QHS PRN for INSOMNIA, #30 TAB 08/15/18 Lactulose* (Lactulose*) 20 Gm/30 Ml Solution, 20 GM PO Q6H for CONSTIPATION, ML 08/15/18 Ipratropium-Albuterol (Ipratropium-Albuterol) 0.5-3 Mg/3 Ml Ampul.neb, 3 ML INHALATION Q2H PRN for WHEEZING AND SOB, #30 VIAL 08/15/18 Hydralazine Hcl* (Hydralazine Hcl*) 10 Mg Tablet, 10 MG GTB Q8 PRN for ELEVATED BLOOD PRESSURE, #90 TAB HOLD IF SBP IS <110 OR HR IS <60 08/15/18 Escitalopram Oxalate* (Lexapro*) 10 Mg Tablet, 10 MG GTB DAILY, #30 TAB 08/15/18 Docusate Sodium* (Docusate Sodium* Liq) 50 Mg/5 Ml Liquid, 100 MG GTB BID PRN for CONSTIPATION, ML 08/15/18 Acetaminophen* (Acetaminophen* Susp) 325 Mg/10.15 Ml Solution, 650 MG GTB Q6 PRN for MILD PAIN LEVEL 1-3, ML 08/15/18 Lactobacillus Acidophilus* (Lactinex*) 1 Tab Chew, 1 TAB GTB BID, TAB 08/15/18 Amiodarone Hcl* (Amiodarone Hcl*) 200 Mg Tablet, 200 MG GTB BID, #60 TAB HOLD FOR HR >60 08/15/18 Chlorhexidine Gluconate (Peridex) 473 Ml Mouthwash, 15 ML MM BID, BOTTLE 08/15/18 Medications Current Medications Acetaminophen (Tylenol Liquid) 650 mg Q6H PRN GTB MILD PAIN LEVEL 1-3 Last administered on 08/16/18 18:04; Admin Dose 650 MG; Start 08/15/18 at 08:00 Amiodarone HCl (Cordarone) 200 mg BID GTB Last administered on 08/19/18 09:28; Admin Dose 200 MG; Start 08/15/18 at 09:00 Budesonide (Pulmicort (Neb)) 1 mg BID NEB Last administered on 08/19/18 08:33; Admin Dose 0.5 MG; Start 08/15/18 at 09:00 Chlorhexidine Gluconate (Peridex) 15 ml BID MM Last administered on 08/19/18 09:26; Admin Dose 15 ML; Start 08/15/18 at 09:00 Docusate Sodium (Colace Liquid Cup) 100 mg BID PRN GTB CONSTIPATION; Start 08/15/18 at 08:00 Escitalopram Oxalate (Lexapro) 10 mg DAILY GTB Last administered on 08/19/18 09:26; Admin Dose 10 MG; Start 08/15/18 at 09:00 Hydralazine HCl (Apresoline) 10 mg Q8H PRN GTB ELEVATED BLOOD PRESSURE Last administered on 08/15/18 12:08; Admin Dose 10 MG; Start 08/15/18 at 08:00 Albuterol/ Ipratropium (Duoneb) 3 ml Q2H PRN NEB WHEEZING AND SOB Last administered on 08/19/18 15:45; Admin Dose 3 ML; Start 08/15/18 at 08:00 Lidocaine (Lidoderm) 1 patch DAILY TD Last administered on 08/19/18 09:27; Admin Dose 1 PATCH; Start 08/15/18 at 09:00 Al Hydrox/Mg Hydrox/Simethicone (Mag-Al Plus) 30 ml Q6H PRN GTB GASTROINTESTINAL UPSET; Start 08/15/18 at 08:00 Zolpidem Tartrate (Ambien) 5 mg QHS PRN GTB INSOMNIA Last administered on 08/18/18 20:40; Admin Dose 5 MG; Start 08/15/18 at 08:00 Piperacillin Sod/ Tazobactam Sod 100 ml @ 200 mls/hr Q8 IVPB Last administered on 08/19/18 14:48; Admin Dose 200 MLS/HR; Start 08/15/18 at 14:00 Ondansetron HCl (Zofran Inj) 4 mg Q6H PRN IV NAUSEA AND/OR VOMITING Last administered on 08/17/18 19:33; Admin Dose 4 MG; Start 08/15/18 at 10:30 Lactulose (Enulose) 20 gm Q6H GTB Last administered on 08/19/18 14:48; Admin Dose 20 GM; Start 08/15/18 at 14:00 Lansoprazole (Prevacid) 30 mg DAILY GTB Last administered on 08/19/18 09:26; Admin Dose 30 MG; Start 08/15/18 at 10:30 Ascorbic Acid (Vitamin C) 250 mg DAILY GTB Last administered on 08/19/18 09:26; Admin Dose 250 MG; Start 08/16/18 at 09:00 Zinc Sulfate (Zinc Sulfate) 220 mg DAILY GTB Last administered on 08/19/18 09:26; Admin Dose 220 MG; Start 08/16/18 at 09:00 Folic Acid (Folic Acid) 1 mg DAILY GTB Last administered on 08/19/18 09:26; Admin Dose 1 MG; Start 08/16/18 at 09:00 Multivitamins (Multivitamin) 30 ml DAILY GTB Last administered on 08/19/18 09:25; Admin Dose 30 ML; Start 08/16/18 at 09:00 Hydromorphone HCl (Dilaudid) 0.5 mg Q12H PRN IV SEVERE PAIN LEVEL 7-10 Last administered on 08/19/18 12:51; Admin Dose 0.5 MG; Start 08/16/18 at 10:00 Collagenase (Santyl) 1 applic DAILY TOP Last administered on 08/19/18 09:26; Admin Dose 1 APPLIC; Start 08/17/18 at 09:00 Lorazepam (Ativan) 0.5 mg Q8H PRN IV ANXIETY Last administered on 08/19/18 14:48; Admin Dose 0.5 MG; Start 08/18/18 at 08:30 Assessment/Plan Hospital Course (Demo Recall) 1. Acute on chronic respiratory failure status post tracheostomy vent dependent 2. Pneumonia 3. Sinus tachycardia/ history of paroxysmal atrial fibrillation 4. History of gastric outlet obstruction 5. Dysphagia status post tube feeding and placement 6. History of severe COPD 7. Anemia 8. History of duodenal ulcer on esophagitis 9. Hypo K and hypo Mg Recommendations: Continue with amiodarone for now. Patient has remained in sinus rhythm so far Ventilator support will be managed as per pulmonary Antibiotic management as per internal medicine and infectious disease cons ultants Electrolytes will be adjusted as needed. Echocardiogram shows ejection fraction of 70% Trach care will be continue aggressive suctioning. DVT prophylaxis and GI prophylaxis as per internal medicine Thank you for his referral. We will continue to follow along with you as needed STEPHAN GE MD [facility] STEPHAN GE MD Aug 19, 2018 15:55
[2018-08-19] MEDS ORDERED: MAGNESIUM SULFATE 4 GM/100 ML 100 ML IVPB ONE (16:30)
[2018-08-20] VITALS (17 sets, daily range): BP systolic 129–151; BP diastolic 58–74; PULSE 71–85; RESP 16–21
[2018-08-20] MEDS: LACTULOSE 30ML CUP GTB SCH ×3 (02:05→14:06)
[2018-08-20] MEDS: HYDROmorphONE 0.5 MG/0.5 ML SYG IV PRN ×2 (02:26→14:06)
[2018-08-20] MEDS: PIPER-TAZO 3.375 GM IV (PMX) 100 ML IVPB SCH ×2 (05:10→14:06)
--- NOTE | 2018-08-20 07:33 | CONS ---
Assessment/Plan Assessment/Plan Assessment/Plan (Daily) Ventilator settings; assist control of 16, tidal volume 500, PEEP of 5, 40% FiO2. Assessment and recommendations; 1. Patient with history of VDRF admitted with bilateral pneumonia with significant interval clinical improvement. Continue current supportive care. Consider discharge to rehab center. Consultation Date/Type/Reason Admit Date/Time August 15, 2018 at 03:45 Initial Consult Date 08/15/18 Type of Consult Pulmonary Patient's condition is stable. Remains awake and alert. Has remained hemodynamically stable. General exam; elderly male, on ventilator via tracheostomy, currently in no distress. Requesting Provider: ADAN BUSCH DO Date/Time of Note DATE: 08/20/18 TIME: 07:31 24 HR Interval Summary Free Text/Dictation Patient's condition is stable. Remains awake and alert. Has remained hemodynamically stable. General exam; elderly male, on ventilator via tracheostomy, awake and alert. Currently no distress. Exam/Review of Systems Exam Vitals Vital Signs Date Temp Pulse Resp B/P (MAP) Pulse Ox O2 O2 Flow FiO2 Time Delivery Rate 08/20/18 97 16 95 40 05:06 08/20/18 98.2 129/58 03:46 (81) 08/18/18 Mechanical 15:50 Ventilator Intake and Output 08/19/18 08/19/18 08/20/18 1515:00 23:00 07:00 IntakeIntake Total 1140 ml 1455 ml 1300 ml OutputOutput Total 1200 ml 550 ml 1200 ml BalanceBalance -60 ml 905 ml 100 ml Exam H ENT exam; supple neck, no JVD. No lymphadenopathy. Midline trachea. No th yromegaly. Tracheostomy in place. Insertion site is clean. Patient has carious teeth. Chest exam; diminished but clear breath sounds. S1-S2 audible, no murmurs. Regular rhythm. Abdomen exam; soft, nontender. No organomegaly. G-tube in place. Bowel sounds audible. Extremity exam; no peripheral edema clubbing. DANCING MASTER exam; no focal deficit. Results Result Diagram: 08/20/18 0523 08/19/18 0534 Results 24hrs Laboratory Tests Test 08/20/18 05:23 White Blood Count 5.6 # Red Blood Count 2.80 L Hemoglobin 8.7 L Hematocrit 26.6 L Mean Corpuscular Volume 95.0 Mean Corpuscular Hemoglobin 31.1 Mean Corpuscular Hemoglobin Concent 32.7 Red Cell Distribution Width 15.5 H Platelet Count 203 Mean Platelet Volume 11.0 H Immature Granulocytes % 1.100 H Neutrophils % 63.8 Lymphocytes % 20.5 Monocytes % 11.5 H Eosinophils % 2.7 Basophils % 0.4 Nucleated Red Blood Cells % 0.0 Immature Granulocytes # 0.060 H Neutrophils # 3.5 Lymphocytes # 1.1 Monocytes # 0.6 Eosinophils # 0.2 Basophils # 0.0 Nucleated Red Blood Cells # 0.0 Medications Medication Current Medications Acetaminophen (Tylenol Liquid) 650 mg Q6H PRN GTB MILD PAIN LEVEL 1-3 Last administered on 08/16/18 18:04; Admin Dose 650 MG; Start 08/15/18 at 08:00 Amiodarone HCl (Cordarone) 200 mg BID GTB Last administered on 08/19/18 20:28; Admin Dose 200 MG; Start 08/15/18 at 09:00 Budesonide (Pulmicort (Neb)) 1 mg BID NEB Last administered on 08/19/18 20:01; Admin Dose 1 MG; Start 08/15/18 at 09:00 Chlorhexidine Gluconate (Peridex) 15 ml BID MM Last administered on 08/19/18 20:28; Admin Dose 15 ML; Start 08/15/18 at 09:00 Docusate Sodium (Colace Liquid Cup) 100 mg BID PRN GTB CONSTIPATION; Start 08/15/18 at 08:00 Escitalopram Oxalate (Lexapro) 10 mg DAILY GTB Last administered on 08/19/18 09:26; Admin Dose 10 MG; Start 08/15/18 at 09:00 Hydralazine HCl (Apresoline) 10 mg Q8H PRN GTB ELEVATED BLOOD PRESSURE Last administered on 08/15/18 12:08; Admin Dose 10 MG; Start 08/15/18 at 08:00 Albuterol/ Ipratropium (Duoneb) 3 ml Q2H PRN NEB WHEEZING AND SOB Last administered on 08/19/18 15:45; Admin Dose 3 ML; Start 08/15/18 at 08:00 Lidocaine (Lidoderm) 1 patch DAILY TD Last administered on 08/19/18 09:27; Admin Dose 1 PATCH; Start 08/15/18 at 09:00 Al Hydrox/Mg Hydrox/Simethicone (Mag-Al Plus) 30 ml Q6H PRN GTB GASTROINTE STINAL UPSET; Start 08/15/18 at 08:00 Zolpidem Tartrate (Ambien) 5 mg QHS PRN GTB INSOMNIA Last administered on 08/18/18 20:40; Admin Dose 5 MG; Start 08/15/18 at 08:00 Piperacillin Sod/ Tazobactam Sod 100 ml @ 200 mls/hr Q8 IVPB Last administered on 08/20/18 05:10; Admin Dose 200 MLS/HR; Start 08/15/18 at 14:00 Ondansetron HCl (Zofran Inj) 4 mg Q6H PRN IV NAUSEA AND/OR VOMITING Last administered on 08/17/18 19:33; Admin Dose 4 MG; Start 08/15/18 at 10:30 Lactulose (Enulose) 20 gm Q6H GTB Last administered on 08/20/18 02:05; Admin Dose 20 GM; Start 08/15/18 at 14:00 Lansoprazole (Prevacid) 30 mg DAILY GTB Last administered on 08/19/18 09:26; Admin Dose 30 MG; Start 08/15/18 at 10:30 Ascorbic Acid (Vitamin C) 250 mg DAILY GTB Last administered on 08/19/18 09:26; Admin Dose 250 MG; Start 08/16/18 at 09:00 Zinc Sulfate (Zinc Sulfate) 220 mg DAILY GTB Last administered on 08/19/18 09 :26; Admin Dose 220 MG; Start 08/16/18 at 09:00 Folic Acid (Folic Acid) 1 mg DAILY GTB Last administered on 08/19/18 09:26; Admin Dose 1 MG; Start 08/16/18 at 09:00 Multivitamins (Multivitamin) 30 ml DAILY GTB Last administered on 08/19/18 09:25; Admin Dose 30 ML; Start 08/16/18 at 09:00 Hydromorphone HCl (Dilaudid) 0.5 mg Q12H PRN IV SEVERE PAIN LEVEL 7-10 Last administered on 08/20/18 02:26; Admin Dose 0.5 MG; Start 08/16/18 at 10:00 Collagenase (Santyl) 1 applic DAILY TOP Last administered on 08/19/18 09:26; Admin Dose 1 APPLIC; Start 08/17/18 at 09:00 Lorazepam (Ativan) 0.5 mg Q8H PRN IV ANXIETY Last administered on 08/19/18at 22:49; Admin Dose 0.5 MG; Start 08/18/18 at 08:30 DEWAYNE MARTEL Aug 20, 2018 07:33
[2018-08-20] MEDS: BUDESONIDE (NEB) 0.5MG/2ML AMP NEB SCH (08:16)
--- NOTE | 2018-08-20 08:20 | CONS ---
Consult Date/Type/Reason Admit Date/Time August 15, 2018 at 03:45 Initial Consult Date 08/15/18 Type of Consultation: cv Requesting Provider: ADAN BUSCH DO Date/Time of Note DATE: 08/20/18 TIME: 08:18 Subjective Interventional cardiology follow-up progress note Subjective: Discussed with the staff and telemetry was reviewed. Patient remains in normal sinus rhythm. No episode of atrial fibrillation overnight reported. Heart rate has remained stable He is s/p tracheostomy on the vent. still with secretions He denies any left-sided chest pain or pressure to me denies any palpitation to me Objective: General: Thin cachectic looking gentleman status post tracheostomy HEENT: NC/AT. pupils are equal. round. NECK: Status post tracheostomy. no stridor. CV: Regular rate and rhythm. systolic murmur; no gallop or rubs. PULM: no wheezing mild diffuse rhonchi. GI: SOFT, NT, ND, no rebound or guarding status post tube feeding placement Extremity: No significant LE edema. no clubbing. neuro: Sleeping comfortably Psych: Calm now rectal: deferred : normal EKG was personally reviewed shows sinus tachycardia Chest x-ray done August 15, 2018 shows: Bilateral increased interstitial markings could represent interstitial edema or infiltrates.Small left-sided pleural effusion.Aortic atherosclerosis. Chest x-ray done 08/16/2018 shows: Patchy multifocal right greater than left basilar alveolar infiltrates concerning for multifocal pneumonia are increased. Minimal left pleural effusion unchanged. Echocardiogram done on March 2018 showed: Hyperdynamic left ventricular systolic function. Normal left ventricular cavity size. Mild concentric left ventricular hypertrophy. Ejection fraction is visually estimated at 75 %. Normal appearance and function of the mitral valve with trace physiologic regurgitation. Normal appearance of the aortic valve. No significant aortic stenosis or insufficiency. Normal appearance of the tricuspid valve. Estimated peak PA systolic pressure 38 mmHg. There is trace tricuspid regurgitation. Normal IVC with respiratory collapse, however patient on ventilator. Echocardiogram done August 16, 2018 shows: Normal left ventricular systolic function. Normal left ventricular cavity size. Left ventricle not well visualized. Normal left ventricular wall thickness. Ejection fraction is visually estimated at 70 %. Abnormal Diastolic Function. Normal appearance and function of the mitral valve with trace physiologic regurgitation. Mitral valve is not well visualized. Normal appearance of the aortic valve. No significant aortic stenosis or insufficiency. Aortic valve not well visualized. Normal appearance of the tricuspid valve. Tricuspid valve not well visualized. The estimated Peak RVSP is 36 mmHg. There is trace tricuspid regurgitation. Objective Vitals Vital Signs Date Temp Pulse Resp B/P (MAP) Pulse Ox O2 O2 Flow FiO2 Time Delivery Rate 08/20/18 98.3 77 20 146/74 96 07:52 (98) 08/20/18 40 05:06 08/18/18 Mechanical 15:50 Ventilator Intake and Output 08/19/18 08/19/18 08/20/18 1515:00 23:00 07:00 IntakeIntake Total 1140 ml 1455 ml 1300 ml OutputOutput Total 1200 ml 550 ml 1200 ml BalanceBalance -60 ml 905 ml 100 ml Results/Medications Result Diagram: 08/20/1852208/20/18523 Results 24 hrs Laboratory Tests Test 08/20/18 05:23 08/20/18 05:24 White Blood Count 5.6 # Red Blood Count 2.80 L Hemoglobin 8.7 L Hematocrit 26.6 L Mean Corpuscular Volume 95.0 Mean Corpuscular Hemoglobin 31.1 Mean Corpuscular Hemoglobin Concent 32.7 Red Cell Distribution Width 15.5 H Platelet Count 203 Mean Platelet Volume 11.0 H Immature Granulocytes % 1.100 H Neutrophils % 63.8 Lymphocytes % 20.5 Monocytes % 11.5 H Eosinophils % 2.7 Basophils % 0.4 Nucleated Red Blood Cells % 0.0 Immature Granulocytes # 0.060 H Neutrophils # 3.5 Lymphocytes # 1.1 Monocytes # 0.6 Eosinophils # 0.2 Basophils # 0.0 Nucleated Red Blood Cells # 0.0 Sodium Level 138 Potassium Level 3.6 Chloride Level 105 Carbon Dioxide Level 31 Anion Gap 2 L Blood Urea Nitrogen 6 L Creatinine 0.27 L Est Glomerular Filtrat Rate mL/min > 60 Glucose Level 85 Calcium Level 7.5 L Phosphorus Level 3.1 Magnesium Level 2.1 Home Meds Reported Medications Lidocaine (Lidoderm) 1 Each Adh..patch, 1 EACH TP DAILY PUT ON AT 0900 AND TAKE OFF AT 2100 08/15/18 Mag Hydrox/Al Hydrox/Simeth (Maalox Advanced Suspension) 355 Ml Oral.susp, 30 ML GTB Q6 PRN for GASTROINTESTINAL UPSET 08/15/18 Pantoprazole* (Protonix*) 40 Mg Tablet.dr, 40 MG GTB DAILY, TAB 08/15/18 Protein Supplement (Promod) 946 Ml Liquid, 30 ML GTB BID 08/15/18 Budesonide* (Pulmicort*) 1 Mg/2 Ml Ampul.neb, 1 MG INHALATION BID, #60 AMP 08/15/18 Balsam Qamar/Garden Oil (Venelex Ointment) 60 Gm Oint..gm., 1 APPLIC TOP NEEDED, #1 TUB APPLY TO SACRUM TOPICALLY DAILY 08/15/18 Ondansetron Hcl* (Zofran*) 4 Mg Tab, 4 MG PO Q6H PRN for NAUSEA AND OR VOMITING, TAB 08/15/18 Zolpidem Tartrate* (Zolpidem Tartrate*) 5 Mg Tablet, 5 MG GTB QHS PRN for INSOMNIA, #30 TAB 08/15/18 Lactulose* (Lactulose*) 20 Gm/30 Ml Solution, 20 GM PO Q6H for CONSTIPATION, ML 08/15/18 Ipratropium-Albuterol (Ipratropium-Albuterol) 0.5-3 Mg/3 Ml Ampul.neb, 3 ML INHALATION Q2H PRN for WHEEZING AND SOB, #30 VIAL 08/15/18 Hydralazine Hcl* (Hydralazine Hcl*) 10 Mg Tablet, 10 MG GTB Q8 PRN for ELEVATED BLOOD PRESSURE, #90 TAB HOLD IF SBP IS <110 OR HR IS <60 08/15/18 Escitalopram Oxalate* (Lexapro*) 10 Mg Tablet, 10 MG GTB DAILY, #30 TAB 08/15/18 Docusate Sodium* (Docusate Sodium* Liq) 50 Mg/5 Ml Liquid, 100 MG GTB BID PRN for CONSTIPATION, ML 08/15/18 Acetaminophen* (Acetaminophen* Susp) 325 Mg/10.15 Ml Solution, 650 MG GTB Q6 PRN for MILD PAIN LEVEL 1-3, ML 08/15/18 Lactobacillus Acidophilus* (Lactinex*) 1 Tab Chew, 1 TAB GTB BID, TAB 08/15/18 Amiodarone Hcl* (Amiodarone Hcl*) 200 Mg Tablet, 200 MG GTB BID, #60 TAB HOLD FOR HR >60 08/15/18 Chlorhexidine Gluconate (Peridex) 473 Ml Mouthwash, 15 ML MM BID, BOTTLE 08/15/18 Medications Current Medications Acetaminophen (Tylenol Liquid) 650 mg Q6H PRN GTB MILD PAIN LEVEL 1-3 Last administered on 08/16/18 18:04; Admin Dose 650 MG; Start 08/15/18 at 08:00 Amiodarone HCl (Cordarone) 200 mg BID GTB Last administered on 08/19/18 20:28; Admin Dose 200 MG; Start 08/15/18 at 09:00 Budesonide (Pulmicort (Neb)) 1 mg BID NEB Last administered on 08/20/18 08:16; Admin Dose 1 MG; Start 08/15/18 at 09:00 Chlorhexidine Gluconate (Peridex) 15 ml BID MM Last administered on 08/19/18 20:28; Admin Dose 15 ML; Start 08/15/18 at 09:00 Docusate Sodium (Colace Liquid Cup) 100 mg BID PRN GTB CONSTIPATION; Start 08/15/18 at 08:00 Escitalopram Oxalate (Lexapro) 10 mg DAILY GTB Last administered on 08/19/18 09:26; Admin Dose 10 MG; Start 08/15/18 at 09:00 Hydralazine HCl (Apresoline) 10 mg Q8H PRN GTB ELEVATED BLOOD PRESSURE Last administered on 08/15/18 12:08; Admin Dose 10 MG; Start 08/15/18 at 08:00 Albuterol/ Ipratropium (Duoneb) 3 ml Q2H PRN NEB WHEEZING AND SOB Last administered on 08/19/18 15:45; Admin Dose 3 ML; Start 08/15/18 at 08:00 Lidocaine (Lidoderm) 1 patch DAILY TD Last administered on 08/19/18 09:27; Admin Dose 1 PATCH; Start 08/15/18 at 09:00 Al Hydrox/Mg Hydrox/Simethicone (Mag-Al Plus) 30 ml Q6H PRN GTB GASTROINTESTINAL UPSET; Start 08/15/18 at 08:00 Zolpidem Tartrate (Ambien) 5 mg QHS PRN GTB INSOMNIA Last administered on 08/18/18 20:40; Admin Dose 5 MG; Start 08/15/18 at 08:00 Piperacillin Sod/ Tazobactam Sod 100 ml @ 200 mls/hr Q8 IVPB Last administered on 08/20/18 05:10; Admin Dose 200 MLS/HR; Start 08/15/18 at 14:00 Ondansetron HCl (Zofran Inj) 4 mg Q6H PRN IV NAUSEA AND/OR VOMITING Last administered on 08/17/18 19:33; Admin Dose 4 MG; Start 08/15/18 at 10:30 Lactulose (Enulose) 20 gm Q6H GTB Last administered on 08/20/18 02:05; Admin Dose 20 GM; Start 08/15/18 at 14:00 Lansoprazole (Prevacid) 30 mg DAILY GTB Last administered on 08/19/18 09:26; Admin Dose 30 MG; Start 08/15/18 at 10:30 Ascorbic Acid (Vitamin C) 250 mg DAILY GTB Last administered on 08/19/18 09:26; Admin Dose 250 MG; Start 08/16/18 at 09:00 Zinc Sulfate (Zinc Sulfate) 220 mg DAILY GTB Last administered on 08/19/18 09:26; Admin Dose 220 MG; Start 08/16/18 at 09:00 Folic Acid (Folic Acid) 1 mg DAILY GTB Last administered on 08/19/18 09:26; Admin Dose 1 MG; Start 08/16/18 at 09:00 Multivitamins (Multivitamin) 30 ml DAILY GTB Last administered on 08/19/18 09:25; Admin Dose 30 ML; Start 08/16/18 at 09:00 Hydromorphone HCl (Dilaudid) 0.5 mg Q12H PRN IV SEVERE PAIN LEVEL 7-10 Last administered on 08/20/18 02:26; Admin Dose 0.5 MG; Start 08/16/18 at 10:00 Collagenase (Santyl) 1 applic DAILY TOP Last administered on 08/19/18 09:26; Admin Dose 1 APPLIC; Start 08/17/18 at 09:00 Lorazepam (Ativan) 0.5 mg Q8H PRN IV ANXIETY Last administered on 08/19/18 22:49; Admin Dose 0.5 MG; Start 08/18/18 at 08:30 Assessment/Plan Hospital Course (Demo Recall) 1. Acute on chronic respiratory failure status post tracheostomy vent dependent 2. Pneumonia 3. Sinus tachycardia/ history of paroxysmal atrial fibrillation 4. History of gastric outlet obstruction 5. Dysphagia status post tube feeding and placement 6. History of severe COPD 7. Anemia 8. History of duodenal ulcer on esophagitis 9. Hypo K and hypo Mg Recommendations: Continue with amiodarone for now. Patient has remained in sinus rhythm so far Ventilator support will be managed as per pulmonary Antibiotic management as per internal medicine and infectious disease cons ultants Electrolytes will be adjusted as needed. Echocardiogram shows ejection fraction of 70% cont with Trach care and aggressive suctioning. DVT prophylaxis and GI prophylaxis as per internal medicine Thank you for his referral. We will continue to follow along with you STEPHAN GE MD [facility] STEPHAN GE MD Aug 20, 2018 08:20
[2018-08-20] MEDS: FOLIC ACID 1 MG TAB GTB SCH (09:00)
[2018-08-20] MEDS: COLLAGENASE 5 GM (UD JAR) TOP SCH (09:15)
[2018-08-20] MEDS: BALSAM PERU/CASTOR OIL 60 GM TUBE TOP SCH (09:15)
[2018-08-20] MEDS: CHLORHEXIDINE GLUCONATE 15 ML UD CUP MM SCH (09:17)
[2018-08-20] MEDS: MULTIVITAMINS 30 ML CUP GTB SCH (09:18)
[2018-08-20] MEDS: ZINC SULFATE 220 MG CAP GTB SCH (09:18)
[2018-08-20] MEDS: AMIODARONE 200 MG TAB GTB SCH (09:18)
[2018-08-20] MEDS: ESCITALOPRAM 10 MG TAB GTB SCH (09:19)
[2018-08-20] MEDS: LANSOPRAZOLE 30 MG CAP GTB SCH (09:19)
[2018-08-20] MEDS: ASCORBIC ACID 250 MG TAB GTB SCH (09:19)
[2018-08-20] MEDS: LIDOCAINE 5% PATCH TD SCH (09:20)
[2018-08-20] MEDS: LORAZEPAM 2 MG INJ IV PRN (10:02)
--- NOTE | 2018-08-20 15:27 | CONS ---
Assessment/Plan Assessment/Plan Hospital Course (Demo Recall) No events, looks comfortable, no fevers Endotracheal aspirate grew Klebsiella susceptible to all antibiotics except Ancef Antimicrobials: Vancomycin, Zosyn Indwelling: Tracheostomy, PEG, Hill Physical examination: Chronically ill-appearing elderly man who is awake in no distress. Head atraumatic normocephalic sclera nonicteric. Neck is supple tracheostomy present. Chest rise symmetrical breath sounds diminished bases. Heart: S1-S2. Abdomen soft bowel sounds present. Extremities without cyanosis edema. Skin: Patient has multiple pressure sores Assessment: 1. Sepsis, present on admission 2. Healthcare associated pneumonia 3. Chronic respiratory failure and dysphagia 4. Resolving encephalopathy Plan: Stable, completing antibiotics, pending discharge back to SNF Consultation Date/Type/Reason Admit Date/Time August 15, 2018 at 03:45 Initial Consult Date 08/15/18 Type of Consult id Requesting Provider: ADAN BUSCH DO Date/Time of Note DATE: 08/20/18 TIME: 15:26 Exam/Review of Systems Exam Vitals Vital Signs Date Temp Pulse Resp B/P (MAP) Pulse Ox O2 O2 Flow FiO2 Time Delivery Rate 08/20/18 84 20 98 30 15:17 08/20/18 97.4 151/73 11:26 (99) 08/18/18 Mechanical 15:50 Ventilator Intake and Output 08/19/18 08/19/18 08/20/18 1515:00 23:00 07:00 IntakeIntake Total 1140 ml 1455 ml 1300 ml OutputOutput Total 1200 ml 550 ml 1200 ml BalanceBalance -60 ml 905 ml 100 ml Results Result Diagram: 08/20/18 0523 08/20/18 0524 Results 24hrs Laboratory Tests Test 08/20/18 05:23 08/20/18 05:24 White Blood Count 5.6 # Red Blood Count 2.80 L Hemoglobin 8.7 L Hematocrit 26.6 L Mean Corpuscular Volume 95.0 Mean Corpuscular Hemoglobin 31.1 Mean Corpuscular Hemoglobin Concent 32.7 Red Cell Distribution Width 15.5 H Platelet Count 203 Mean Platelet Volume 11.0 H Immature Granulocytes % 1.100 H Neutrophils % 63.8 Lymphocytes % 20.5 Monocytes % 11.5 H Eosinophils % 2.7 Basophils % 0.4 Nucleated Red Blood Cells % 0.0 Immature Granulocytes # 0.060 H Neutrophils # 3.5 Lymphocytes # 1.1 Monocytes # 0.6 Eosinophils # 0.2 Basophils # 0.0 Nucleated Red Blood Cells # 0.0 Sodium Level 138 Potassium Level 3.6 Chloride Level 105 Carbon Dioxide Level 31 Anion Gap 2 L Blood Urea Nitrogen 6 L Creatinine 0.27 L Est Glomerular Filtrat Rate mL/min > 60 Glucose Level 85 Calcium Level 7.5 L Phosphorus Level 3.1 Magnesium Level 2.1 Medications Medication Current Medications Acetaminophen (Tylenol Liquid) 650 mg Q6H PRN GTB MILD PAIN LEVEL 1-3 Last administered on 08/16/18 18:04; Admin Dose 650 MG; Start 08/15/18 at 08:00 Amiodarone HCl (Cordarone) 200 mg BID GTB Last administered on 08/20/18 09:18; Admin Dose 200 MG; Start 08/15/18 at 09:00 Budesonide (Pulmicort (Neb)) 1 mg BID NEB Last administered on 08/20/18 08:16; Admin Dose 1 MG; Start 08/15/18 at 09:00 Chlorhexidine Gluconate (Peridex) 15 ml BID MM Last administered on 08/20/18 09:17; Admin Dose 15 ML; Start 08/15/18 at 09:00 Docusate Sodium (Colace Liquid Cup) 100 mg BID PRN GTB CONSTIPATION; Start 08/15/18 at 08:00 Escitalopram Oxalate (Lexapro) 10 mg DAILY GTB Last administered on 08/20/18 09:19; Admin Dose 10 MG; Start 08/15/18 at 09:00 Hydralazine HCl (Apresoline) 10 mg Q8H PRN GTB ELEVATED BLOOD PRESSURE Last administered on 08/15/18 12:08; Admin Dose 10 MG; Start 08/15/18 at 08:00 Albuterol/ Ipratropium (Duoneb) 3 ml Q2H PRN NEB WHEEZING AND SOB Last administered on 08/19/18 15:45; Admin Dose 3 ML; Start 08/15/18 at 08:00 Lidocaine (Lidoderm) 1 patch DAILY TD Last administered on 08/20/18 09:20; Admin Dose 1 PATCH; Start 08/15/18 at 09:00 Al Hydrox/Mg Hydrox/Simethicone (Mag-Al Plus) 30 ml Q6H PRN GTB GASTROINTESTINAL UPSET; Start 08/15/18 at 08:00 Zolpidem Tartrate (Ambien) 5 mg QHS PRN GTB INSOMNIA Last administered on 08/18/18 20:40; Admin Dose 5 MG; Start 08/15/18 at 08:00 Piperacillin Sod/ Tazobactam Sod 100 ml @ 200 mls/hr Q8 IVPB Last administered on 08/20/18 14:06; Admin Dose 200 MLS/HR; Start 08/15/18 at 14:00 Ondansetron HCl (Zofran Inj) 4 mg Q6H PRN IV NAUSEA AND/OR VOMITING Last administered on 08/17/18 19:33; Admin Dose 4 MG; Start 08/15/18 at 10:30 Lactulose (Enulose) 20 gm Q6H GTB Last administered on 08/20/18 14:06; Admin Dose 20 GM; Start 08/15/18 at 14:00 Lansoprazole (Prevacid) 30 mg DAILY GTB Last administered on 08/20/18 09:19; Admin Dose 30 MG; Start 08/15/18 at 10:30 Ascorbic Acid (Vitamin C) 250 mg DAILY GTB Last administered on 08/20/18 09:19; Admin Dose 250 MG; Start 08/16/18 at 09:00 Zinc Sulfate (Zinc Sulfate) 220 mg DAILY GTB Last administered on 08/20/18 09:18; Admin Dose 220 MG; Start 08/16/18 at 09:00 Folic Acid (Folic Acid) 1 mg DAILY GTB Last administered on 08/19/18 09:26; Admin Dose 1 MG; Start 08/16/18 at 09:00 Multivitamins (Multivitamin) 30 ml DAILY GTB Last administered on 08/20/18 09:18; Admin Dose 30 ML; Start 08/16/18 at 09:00 Hydromorphone HCl (Dilaudid) 0.5 mg Q12H PRN IV SEVERE PAIN LEVEL 7-10 Last adm inistered on 08/20/18 14:06; Admin Dose 0.5 MG; Start 08/16/18 at 10:00 Collagenase (Santyl) 1 applic DAILY TOP Last administered on 08/20/18 09:15; Admin Dose 1 APPLIC; Start 08/17/18 at 09:00 Lorazepam (Ativan) 0.5 mg Q8H PRN IV ANXIETY Last administered on 08/20/18at 10:02; Admin Dose 0.5 MG; Start 08/18/18 at 08:30 JANIS KEMP NP Aug 20, 2018 15:27
--- NOTE | 2018-08-20 22:33 | DS ---
DATE OF ADMISSION: 08/15/2018 DATE OF DISCHARGE: 08/20/2018 HOSPITAL COURSE: This is a 68-year-old male with a past medical history of ventilatory-dependent res piratory failure, history of dysphagia, history of chronic neck pain, back pain, arrhythmia, history of coronary artery disease, depression, history of GERD who presented to [facility] from [facility] facility with shortness of breath, worsening neck pain. The patient upon arriv al was diagnosed with sepsis, pneumonia and admitted to telemetry for evaluation. In terms of the pa sonu's sepsis, he was seen by infectious disease, Dr. Castelan. The patient was placed on antibiotic therapy with good clinical improvement. The patient's white count improved and will continue a cours e of antibiotics in the outpatient setting. The patient is also ventilator dependent and was seen by filbert grower, Dr. Thomson. The patient's vent settings have been adjusted by pulmonary. The patie nt has been stable and will continue outpatient weaning. The patient also has history of chronic nec k pain, back pain. Imaging studies showed no acute fracture, and the patient's pain has been control led with pain regimen. The patient's other medical problems include hypertension, depression, has be en stable. The patient is also being followed by cardiology for episodes of arrhythmia, currently co ntrolled. Currently, at this time, the patient is stable, no acute distress. He will be discharged back to his [facility] facility for continued care. At the time of discharge, the patient is stable, in no acute distress. FINAL DIAGNOSES: 1. Sepsis secondary to healthcare-associated pneumonia. 2. Ventilator dependent respiratory failure. 3. Dysphagia. 4. Anemia. 5. Left-sided abnormality. 6. Chronic pain syndrome. 7. Arrhythmia. 8. Hypertension. 9. Constipation. 10. Depression. 11. Encephalopathy, improved. 12. Lower extremity wounds. 13. Malnutrition. At the time of discharge, the patient is stable, in no acute distress. Please note I spent over 30 minutes of time preparing the patient's discharge. FINAL MEDICATIONS: See reconciliation list. Dictated By: ADAN BUSCH DO NR/NTS Conf#: [id number] DID#: [id number] CC: CHITRA LANDEROS DO;*EndCC*
== END 2018-08-20 16:21 | DRG 870 ==
LOC: E/R 02:08 → ICU 03:45 → CANRESERV 04:24 → 6WM 08-16 01:49
PROVIDERS: ADMIT Internal Medicine Nephrology; ATTEND Internal Medicine Nephrology
PROC: 5A1955Z Respiratory Ventilation, Greater than 96 Consecutive Hours (ICD-10-PCS; principal; 2018-08-15)
DX: A41.9 Sepsis, unspecified organism (principal); J96.20 Acute and chronic respiratory failure, unspecified whether with hypoxia or hypercapnia; J18.9 Pneumonia, unspecified organism; E43 Unspecified severe protein-calorie malnutrition; G93.40 Encephalopathy, unspecified; Z68.1 Body mass index [BMI] 19.9 or less, adult; Z99.11 Dependence on respirator [ventilator] status; R65.20 Severe sepsis without septic shock; Z93.0 Tracheostomy status; M54.2 Cervicalgia; M54.9 Dorsalgia, unspecified; R13.10 Dysphagia, unspecified; K21.9 Gastro-esophageal reflux disease without esophagitis; I10 Essential (primary) hypertension; F32.9 Major depressive disorder, single episode, unspecified; K59.00 Constipation, unspecified; L89.150 Pressure ulcer of sacral region, unstageable; L89.510 Pressure ulcer of right ankle, unstageable; L89.620 Pressure ulcer of left heel, unstageable; G72.89 Other specified myopathies
CPT/HCPCS: 36415; 36600; 71045; 72020; 72040; 80048; 80053; 80202; 81001; 81003; 82803; 83605; 83735; 84100; 84484; 85025; 85610; 85730; 87045; 87070; 87081; 87086; 93005; 93306; 94002; 94003; 94640; 94664; 96365; 96367; 96375; J1170; J2060; J2405; J2543; J3370; J3475; J7030; J7042; J7050; P9612

== ENCOUNTER 2018-11-09 11:43 | Inpatient (IN) | payer MEDICARE, MEDICAID ==
[~2018-11-09] VITALS: Ht 188 cm; Wt 42.0 kg
[~2018-11-09 11:43] MED LIST: ACET325S GTB; AMIO200T4 GTB; BALS60OI TOP; BUDE1AMP INHALATION; CHLO473M4 MM; DIPH25CA6 GTB; DOCU50LI23 GTB; ESCI10TA GTB; FAMO20TA18 GTB; FOLI-49 GTB; HYDR-3670 GTB; HYDR2TAB3 GTB; IPRA3AMP29 INHALATION; LACT20SO2 GTB; LACTINEX GTB; LANS30CA GTB; LIDO700A29 TP; MAG355OR14 GTB; MULT9LIQ4 GTB; ONDA4TAB13 PO; PANT40TA3 GTB; PROT946L GTB; ZOLP5TAB7 GTB
[2018-11-09] MEDS ORDERED: IPRATROPIUM (NEB) 0.5 MG/2.5 ML AMP INH STA (11:49)
[2018-11-09] MEDS ORDERED: ALBUTEROL 0.083% (NEB) 2.5 MG/3 ML AMP INH STA (11:49)
[2018-11-09] MEDS ORDERED: DEXAMETHASONE 10 MG/ML 1 ML INJ IV ONE (13:00)
[2018-11-09] MEDS ORDERED: KETOROLAC 30 MG INJ IV STA (13:13)
[2018-11-09] MEDS ORDERED: ACETAMINOPHEN 325 MG TAB PO PRN ×2 (14:00→19:30)
[2018-11-09] MEDS ORDERED: ONDANSETRON 4 MG INJ IV PRN ×2 (14:00→19:30)
[2018-11-09] MEDS ORDERED: SODIUM CHLORIDE 0.9% 1L BAG IV* STA (14:23)
[2018-11-09] MEDS ORDERED: PIPER-TAZO 3.375 GM IV (PMX) 100 ML IVPB ONE (14:30)
[2018-11-09] MEDS ORDERED: AL HYDROX/MG HYDROX/SIMETH 30 ML CUP GTB PRN (19:30)
[2018-11-09] MEDS ORDERED: AZITHROMYCIN 500MG/NS (PMX) 250 ML IV SCH (19:30)
[2018-11-09] MEDS ORDERED: ZOLPIDEM 5 MG TAB PO PRN (19:30)
[2018-11-09] MEDS ORDERED: DOCUSATE SODIUM 10 MG/ML (10ML CUP) GTB PRN (19:30)
[2018-11-09] MEDS ORDERED: CEFTRIAXONE 1 GM/50 ML (PMX) 50 ML IVPB SCH (19:30)
[2018-11-09] MEDS ORDERED: NACL 0.9% 3 ML SYG IV SCH (19:30)
[2018-11-09] MEDS ORDERED: VANCOMYCIN IV PER PHARMACY XX SCH (19:30)
[2018-11-09 19:49] VITALS: Ht 188 cm; Wt 42.0 kg
[2018-11-09 19:58] VITALS: BP 143/62; PULSE 75; RESP 20
[2018-11-09 19:59] VITALS: BP 118/60; PULSE 80; RESP 20
[2018-11-09] MEDS: BUDESONIDE (NEB) 0.5MG/2ML AMP INH SCH (20:07)
[2018-11-09] MEDS ORDERED: VANCOMYCIN 1 GM 250 ML IVPB SCH (20:30)
[2018-11-09] MEDS: HYDROmorphONE 2 MG TAB GTB PRN (20:38)
[2018-11-09] MEDS: PIPER-TAZO 3.375 GM IV (PMX) 100 ML IVPB SCH (21:37)
[2018-11-09] MEDS: LACTULOSE 30ML CUP GTB SCH (21:45)
[2018-11-09] MEDS: ZOLPIDEM 5 MG TAB GTB PRN (22:19)
[2018-11-09] MEDS: DIPHENHYDRAMINE 25 MG CAP GTB PRN (22:19)
[2018-11-10] VITALS: BP 115/59; PULSE 84; RESP 20
[2018-11-10] MEDS: LACTULOSE 30ML CUP GTB SCH ×4 (01:12→19:33)
[2018-11-10 04:00] VITALS: BP 130/71; PULSE 87; RESP 20
[2018-11-10] MEDS: HYDROmorphONE 2 MG TAB GTB PRN ×5 (04:01→20:45)
[2018-11-10] MEDS: PIPER-TAZO 3.375 GM IV (PMX) 100 ML IVPB SCH ×3 (05:46→22:45)
[2018-11-10 07:37] VITALS: BP 141/69; PULSE 77; RESP 18
[2018-11-10] MEDS: BALSAM PERU/CASTOR OIL 60 GM TUBE TOP SCH (08:27)
[2018-11-10] MEDS: LIDOCAINE 5% PATCH TD SCH (08:28)
[2018-11-10] MEDS: VANCOMYCIN 1 GM 250 ML IVPB SCH ×2 (08:28→20:45)
[2018-11-10] MEDS: LANSOPRAZOLE 30 MG CAP GTB SCH (08:30)
[2018-11-10] MEDS: FOLIC ACID 1 MG TAB GTB SCH (08:31)
[2018-11-10] MEDS: FAMOTIDINE 20 MG TAB GTB SCH (08:31)
[2018-11-10] MEDS: AMIODARONE 200 MG TAB GTB SCH (08:31)
[2018-11-10] MEDS: ESCITALOPRAM 10 MG TAB GTB SCH (08:31)
[2018-11-10] MEDS: BUDESONIDE (NEB) 0.5MG/2ML AMP INH SCH ×2 (08:35→19:38)
[2018-11-10 11:43] VITALS: BP 128/64; PULSE 70; RESP 18
[2018-11-10 15:50] VITALS: BP 127/70; PULSE 72; RESP 19
[2018-11-10] MEDS: DIPHENHYDRAMINE 25 MG CAP GTB PRN (19:33)
[2018-11-10 20:00] VITALS: BP 129/74; PULSE 66; RESP 20
[2018-11-10] MEDS: ZOLPIDEM 5 MG TAB GTB PRN (22:45)
[2018-11-11] VITALS (7 sets, daily range): BP systolic 116–159; BP diastolic 58–78; PULSE 62–73; RESP 18–20
[2018-11-11] MEDS: HYDROmorphONE 2 MG TAB GTB PRN ×6 (01:03→21:46)
[2018-11-11] MEDS: LACTULOSE 30ML CUP GTB SCH ×5 (01:03→19:30)
[2018-11-11] MEDS: PIPER-TAZO 3.375 GM IV (PMX) 100 ML IVPB SCH ×3 (05:55→21:40)
[2018-11-11] MEDS: LANSOPRAZOLE 30 MG CAP GTB SCH (08:39)
[2018-11-11] MEDS: ESCITALOPRAM 10 MG TAB GTB SCH (08:39)
[2018-11-11] MEDS: FOLIC ACID 1 MG TAB GTB SCH (08:39)
[2018-11-11] MEDS: FAMOTIDINE 20 MG TAB GTB SCH (08:39)
[2018-11-11] MEDS: LIDOCAINE 5% PATCH TD SCH (08:40)
[2018-11-11] MEDS: BALSAM PERU/CASTOR OIL 60 GM TUBE TOP SCH (08:40)
[2018-11-11] MEDS: AMIODARONE 200 MG TAB GTB SCH (08:40)
[2018-11-11] MEDS: VANCOMYCIN 1 GM 250 ML IVPB SCH (09:30)
[2018-11-11] MEDS: BUDESONIDE (NEB) 0.5MG/2ML AMP INH SCH ×2 (09:46→19:38)
[2018-11-11] MEDS: DIPHENHYDRAMINE 25 MG CAP GTB PRN ×2 (12:01→21:46)
[2018-11-11] MEDS: ALBUTEROL/IPRATROPIUM (NEB) 3 ML AMP INH PRN ×2 (14:32→19:38)
[2018-11-11] MEDS: VANCOMYCIN 1.25 GM/NS 250 ML 250 ML IVPB SCH (20:58)
[2018-11-12] MEDS: LACTULOSE 30ML CUP GTB SCH ×4 (01:30→20:39)
[2018-11-12] MEDS: HYDROmorphONE 2 MG TAB GTB PRN ×5 (02:54→22:07)
[2018-11-12 03:16] VITALS: BP 127/66; PULSE 68; RESP 18
[2018-11-12] MEDS: PIPER-TAZO 3.375 GM IV (PMX) 100 ML IVPB SCH ×3 (05:45→22:06)
[2018-11-12] MEDS: LANSOPRAZOLE (SOLTAB) 30 MG TAB GTB SCH (05:46)
[2018-11-12 07:29] VITALS: BP 126/75; PULSE 77; RESP 18
[2018-11-12] MEDS: ALBUTEROL/IPRATROPIUM (NEB) 3 ML AMP INH PRN (07:54)
[2018-11-12] MEDS: BUDESONIDE (NEB) 0.5MG/2ML AMP INH SCH ×2 (07:55→19:42)
[2018-11-12] MEDS: FOLIC ACID 1 MG TAB GTB SCH (08:30)
[2018-11-12] MEDS: FAMOTIDINE 20 MG TAB GTB SCH (08:31)
[2018-11-12] MEDS: ESCITALOPRAM 10 MG TAB GTB SCH (08:31)
[2018-11-12] MEDS: AMIODARONE 200 MG TAB GTB SCH (08:31)
[2018-11-12] MEDS: LIDOCAINE 5% PATCH TD SCH (08:32)
[2018-11-12] MEDS: BALSAM PERU/CASTOR OIL 60 GM TUBE TOP SCH (08:32)
[2018-11-12] MEDS: VANCOMYCIN 1.25 GM/NS 250 ML 250 ML IVPB SCH ×2 (08:34→20:40)
[2018-11-12 11:37] VITALS: BP 135/69; PULSE 71; RESP 17
[2018-11-12] MEDS: DIPHENHYDRAMINE 25 MG CAP GTB PRN (13:35)
[2018-11-12 15:38] VITALS: BP 140/72; PULSE 64; RESP 18
[2018-11-12 19:18] VITALS: BP 131/69; PULSE 70; RESP 18
[2018-11-12] MEDS: ZOLPIDEM 5 MG TAB GTB PRN (23:06)
[2018-11-12 23:40] VITALS: BP 131/68; PULSE 74; RESP 18
[2018-11-13] MEDS: HYDROmorphONE 2 MG TAB GTB PRN ×5 (02:03→20:32)
[2018-11-13] MEDS: LACTULOSE 30ML CUP GTB SCH ×5 (02:04→20:32)
[2018-11-13 03:33] VITALS: BP 135/76; PULSE 71; RESP 18
[2018-11-13] MEDS: PIPER-TAZO 3.375 GM IV (PMX) 100 ML IVPB SCH ×3 (06:30→22:45)
[2018-11-13] MEDS: LANSOPRAZOLE (SOLTAB) 30 MG TAB GTB SCH (06:30)
[2018-11-13 07:29] VITALS: BP 128/70; PULSE 70; RESP 18
[2018-11-13] MEDS: MULTIVITAMINS 30 ML CUP GTB SCH (08:28)
[2018-11-13] MEDS: ASCORBIC ACID 250 MG TAB GTB SCH (08:28)
[2018-11-13] MEDS: FAMOTIDINE 20 MG TAB GTB SCH (08:28)
[2018-11-13] MEDS: FOLIC ACID 1 MG TAB GTB SCH (08:28)
[2018-11-13] MEDS: DIPHENHYDRAMINE 25 MG CAP GTB PRN ×2 (08:28→20:32)
[2018-11-13] MEDS: ESCITALOPRAM 10 MG TAB GTB SCH (08:29)
[2018-11-13] MEDS: AMIODARONE 200 MG TAB GTB SCH (08:29)
[2018-11-13] MEDS: LIDOCAINE 5% PATCH TD SCH (08:30)
[2018-11-13] MEDS: BALSAM PERU/CASTOR OIL 60 GM TUBE TOP SCH (08:31)
[2018-11-13] MEDS: BUDESONIDE (NEB) 0.5MG/2ML AMP INH SCH ×2 (08:41→20:36)
[2018-11-13 11:00] VITALS: BP 111/62; PULSE 80; RESP 18
[2018-11-13] MEDS ORDERED: BARIUM SULFATE 135 ML (E-Z HD) PO ONE (12:10)
[2018-11-13] MEDS: VANCOMYCIN 1.25 GM/NS 250 ML 250 ML IVPB SCH ×2 (12:23→20:32)
[2018-11-13 15:00] VITALS: BP 145/75; PULSE 71; RESP 18
[2018-11-13] MEDS: ALBUTEROL/IPRATROPIUM (NEB) 3 ML AMP INH PRN (15:00)
[2018-11-13 20:00] VITALS: BP 125/61; PULSE 75; RESP 18
[2018-11-14] VITALS: BP 126/60; PULSE 74; RESP 19
[2018-11-14] MEDS: ZOLPIDEM 5 MG TAB GTB PRN (00:30)
[2018-11-14] MEDS: HYDROmorphONE 2 MG TAB GTB PRN ×6 (00:38→22:16)
[2018-11-14] MEDS: LACTULOSE 30ML CUP GTB SCH ×4 (00:38→19:30)
[2018-11-14 03:57] VITALS: BP 109/57; PULSE 74; RESP 21
[2018-11-14] MEDS: PIPER-TAZO 3.375 GM IV (PMX) 100 ML IVPB SCH ×3 (05:50→22:16)
[2018-11-14] MEDS: LANSOPRAZOLE (SOLTAB) 30 MG TAB GTB SCH (05:50)
[2018-11-14 07:51] VITALS: BP 117/64; PULSE 74; RESP 18
[2018-11-14] MEDS: BUDESONIDE (NEB) 0.5MG/2ML AMP INH SCH ×2 (08:14→20:07)
[2018-11-14] MEDS: MULTIVITAMINS 30 ML CUP GTB SCH (09:05)
[2018-11-14] MEDS: FAMOTIDINE 20 MG TAB GTB SCH (09:05)
[2018-11-14] MEDS: ASCORBIC ACID 250 MG TAB GTB SCH (09:05)
[2018-11-14] MEDS: FOLIC ACID 1 MG TAB GTB SCH (09:05)
[2018-11-14] MEDS: ESCITALOPRAM 10 MG TAB GTB SCH (09:05)
[2018-11-14] MEDS: LIDOCAINE 5% PATCH TD SCH (09:05)
[2018-11-14] MEDS: AMIODARONE 200 MG TAB GTB SCH (09:07)
[2018-11-14] MEDS: VANCOMYCIN 1.25 GM/NS 250 ML 250 ML IVPB SCH ×2 (09:17→20:03)
[2018-11-14] MEDS: DIPHENHYDRAMINE 25 MG CAP GTB PRN ×2 (09:17→22:15)
[2018-11-14] MEDS: BALSAM PERU/CASTOR OIL 60 GM TUBE TOP SCH (09:18)
[2018-11-14 12:19] VITALS: BP 121/69; PULSE 69; RESP 18
[2018-11-14 16:12] VITALS: BP 116/60; PULSE 68; RESP 18
[2018-11-14 20:00] VITALS: BP 116/65; PULSE 74; RESP 18
[2018-11-15] VITALS: BP 138/68; PULSE 72; RESP 20
[2018-11-15] MEDS: LACTULOSE 30ML CUP GTB SCH ×4 (00:53→19:00)
[2018-11-15] MEDS: HYDROmorphONE 2 MG TAB GTB PRN ×6 (03:09→23:03)
[2018-11-15 03:45] VITALS: BP 133/65; PULSE 76; RESP 20
[2018-11-15] MEDS: PIPER-TAZO 3.375 GM IV (PMX) 100 ML IVPB SCH ×3 (05:46→21:28)
[2018-11-15] MEDS: LANSOPRAZOLE (SOLTAB) 30 MG TAB GTB SCH (05:52)
[2018-11-15 07:37] VITALS: BP 122/62; PULSE 72; RESP 17
[2018-11-15] MEDS: BUDESONIDE (NEB) 0.5MG/2ML AMP INH SCH ×2 (08:09→20:44)
[2018-11-15] MEDS: ESCITALOPRAM 10 MG TAB GTB SCH (10:07)
[2018-11-15] MEDS: LIDOCAINE 5% PATCH TD SCH (10:07)
[2018-11-15] MEDS: MULTIVITAMINS 30 ML CUP GTB SCH (10:07)
[2018-11-15] MEDS: ASCORBIC ACID 250 MG TAB GTB SCH (10:08)
[2018-11-15] MEDS: BALSAM PERU/CASTOR OIL 60 GM TUBE TOP SCH (10:08)
[2018-11-15] MEDS: FAMOTIDINE 20 MG TAB GTB SCH (10:08)
[2018-11-15] MEDS: FOLIC ACID 1 MG TAB GTB SCH (10:08)
[2018-11-15] MEDS: AMIODARONE 200 MG TAB GTB SCH (10:08)
[2018-11-15] MEDS: DIPHENHYDRAMINE 25 MG CAP GTB PRN (15:12)
[2018-11-15 15:48] VITALS: BP 113/61; PULSE 78; RESP 17
[2018-11-15 20:00] VITALS: BP 108/68; PULSE 73; RESP 18
[2018-11-16] VITALS: BP 115/59; PULSE 69; RESP 19
[2018-11-16] MEDS: LACTULOSE 30ML CUP GTB SCH ×3 (00:35→12:42)
[2018-11-16] MEDS: DIPHENHYDRAMINE 25 MG CAP GTB PRN ×2 (03:31→16:43)
[2018-11-16] MEDS: HYDROmorphONE 2 MG TAB GTB PRN ×4 (03:32→16:44)
[2018-11-16 04:00] VITALS: BP 118/78; PULSE 72; RESP 20
[2018-11-16] MEDS: PIPER-TAZO 3.375 GM IV (PMX) 100 ML IVPB SCH ×2 (05:53→12:45)
[2018-11-16] MEDS: LANSOPRAZOLE (SOLTAB) 30 MG TAB GTB SCH (05:53)
[2018-11-16 07:49] VITALS: BP 133/74; PULSE 69; RESP 20
[2018-11-16] MEDS: BUDESONIDE (NEB) 0.5MG/2ML AMP INH SCH (08:14)
[2018-11-16] MEDS: ALBUTEROL/IPRATROPIUM (NEB) 3 ML AMP INH PRN ×2 (08:15→16:41)
[2018-11-16] MEDS: LIDOCAINE 5% PATCH TD SCH (08:40)
[2018-11-16] MEDS: ESCITALOPRAM 10 MG TAB GTB SCH (08:42)
[2018-11-16] MEDS: MULTIVITAMINS 30 ML CUP GTB SCH (08:42)
[2018-11-16] MEDS: FOLIC ACID 1 MG TAB GTB SCH (08:43)
[2018-11-16] MEDS: FAMOTIDINE 20 MG TAB GTB SCH (08:43)
[2018-11-16] MEDS: ASCORBIC ACID 250 MG TAB GTB SCH (08:43)
[2018-11-16] MEDS: BALSAM PERU/CASTOR OIL 60 GM TUBE TOP SCH (08:44)
[2018-11-16] MEDS: AMIODARONE 200 MG TAB GTB SCH (08:49)
[2018-11-16 11:06] VITALS: BP 124/67; PULSE 67; RESP 20
[2018-11-16 15:05] VITALS: BP 130/61; PULSE 68; RESP 20
== END 2018-11-16 18:20 | DRG 871 ==
LOC: E/R 11:43 → 6WM 13:44
PROVIDERS: ADMIT Internal Medicine; ATTEND Internal Medicine
DX: A41.9 Sepsis, unspecified organism (principal); J69.0 Pneumonitis due to inhalation of food and vomit; E43 Unspecified severe protein-calorie malnutrition; J96.21 Acute and chronic respiratory failure with hypoxia; E87.1 Hypo-osmolality and hyponatremia; J44.1 Chronic obstructive pulmonary disease with (acute) exacerbation; Z68.1 Body mass index [BMI] 19.9 or less, adult; R13.10 Dysphagia, unspecified; D64.9 Anemia, unspecified; F32.9 Major depressive disorder, single episode, unspecified; K21.9 Gastro-esophageal reflux disease without esophagitis
CPT/HCPCS: 36415; 71045; 74230; 80053; 80061; 80202; 82565; 83036; 83605; 83735; 84100; 84436; 84443; 84479; 84484; 84520; 85025; 85610; 85730; 87081; 92526; 92610; 92611; 93005; 94640; 94664; 96374; 96375; J1100; J1170; J1885; J2543; J3370; J7030